=== PATIENT | male | born 1965 | race Caucasian/White ===

== ENCOUNTER 2025-04-02 12:42 | Inpatient (IN) ==
[2025-04-02 13:52] LABS: Hematocrit (blood only) 44.6 % (42.0-52.0); Hemoglobin 14.4 g/dl (14.0-18.0); Immature Granulocytes # (auto) 0.12 K/uL (0.01-0.20); Immature Granulocytes % (auto) 0.7 %; Mean Corpuscular Hemoglobin 28.7 pg (25.0-34.0); Mean Corpuscular Volume 89.0 fL (80.0-100.0); Platelet Count 275 K/uL (130-400); RDW Standard Deviation 50.0 fL (36.4-46.3); Red Blood Count 5.01 M/uL (4.70-6.10); White Blood Count 17.75 K/ul (4.8-10.8)
[2025-04-02 14:14] LABS: Alanine Aminotransferase 100.0 U/L (7-52); Albumin Globulin Ratio 0.9 (0.9-2); Alkaline Phosphatase 64.0 U/L (34-104); Anion Gap 13.0 (3-11); Bilirubin,Total 1.7 mg/dl (0.2-1.0); Blood Urea Nitrogen 44.0 mg/dl (6-23); Calcium 9.2 mg/dl (8.6-10.3); Carbon Dioxide 20.0 mmol/L (21-32); Chloride 103.0 mmol/L (98-107); Creatinine Clr Calc Pharmacy 39.6 ml/min; Globulin 3.7 gm/dl (2.5-4.0); Glucose 183.0 mg/dl (70-99(Fasting)); Magnesium 2.2 mg/dl (1.7-2.4); Potassium 4.2 mmol/L (3.5-5.1); Sodium 136.0 mmol/L (136-145); Total Protein 7.2 gm/dl (6.0-8.3)
[2025-04-02] MEDS: FUROSEMIDE 40 MG/4 ML VIAL IV ONE (14:17)
[2025-04-02] MEDS: METOPROLOL TARTRATE 1 MG/ML VIAL IV STA (14:17)
[2025-04-02] MEDS: NITROGLYCERIN 2% OINTMENT 30GM TUBE EXT STA (14:19)
--- NOTE | 2025-04-02 14:20 | XRay Report ---
SINGLE VIEW CHEST CLINICAL HISTORY: Dysrhythmia FINDINGS: 2 AP, portable, upright chest radiographs are obtained. No prior studies are available for comparison at the time of dictation. The heart is enlarged and noting atherosclerotic calcification o f the thoracic aorta. There is mild pulmonary vascular congestion. There is bibasilar consolidation. Small pleural effusions are suspected. No pneumothorax is seen. The skeletal structures are osteopeni c. The bony thorax is grossly intact. IMPRESSION: 1. Cardiomegaly with mild pulmonary vascular congestion. 2. There is bibasilar airspace consolidation. This is somewhat nodular in configuration on the right. Correlate clinically for evidence of pneumonia/aspiration pneumonitis. Radiographic follow-up to res olution is recommended. If clinical findings are not compatible with pneumonia then a chest CT scan s hould be obtained to further evaluate the right lower lung. 3. Small pleural effusions are suspected ACT 112: Negative or not required by law. Electronically signed by: Jermain Mcallister M.D. 04/02/2025 2:18 PM
[2025-04-02 14:22] LABS: INR 1.4 (0.9-1.1); Partial Thromboplastin Time 23 Seconds (21-31); Prothrombin Time 14.6 Seconds (9.0-12.0)
[2025-04-02 14:27] LABS: Thyroid Stimulating Hormone 3.352 uIu/ml (0.300-4.500)
--- NOTE | 2025-04-02 15:32 | History & Physical Report ---
Date of Service April 02, 2025 Assessment & Plan (1) CHF exacerbation: Plan: Patient is a 59 year old M with a past medical history of chronic systolic heart failure, diabetes type II, hypertension, CKD stage III, hyperlipidemia, obesity, ulcerative colitis presenting with shortness of breath, edema, cough. Symptoms began about a week ago with nonproductive cough and lower leg edema, progressed to shortness of breath about 3 days ago with exertion. Patient relocated from [place] about 6 months ago and was taking all his medications until about 30 days ago when he had no refills remaining. Since then he's been trying to establish insurance and outpatient providers. Reportedly, he was diagnosed with heart failure about 15 months ago when hospitalized in [place] with similar presentation. He experienced weight gain, swelling to the legs and shortness of breath at that time, then lost ~50 pounds following diuretics while inpatient. Previous medications included metoprolol, bumetanide, eplerenone, atorvastatin, ACEi and aspirin. #Acute on chronic CHF exacerbation * Admit to Telemetry for further management and additional work-up * Nonadherence to meds with acute exacerbation of CHF->BNP 1581 * Elevated Trop 155, then 162; NO Chest pain. Will trend Q6H x 3 * Chest Xray showing cardiomegaly with mild pulmonary vascular congestion; bibasilar airspace consolidation with nodular configuration to R lung and possible small pleural effusions-> will obtain CT Chest for r/o pericardial effusion * Hypertensive, tachypneic, tachycardiac in ED-> Lasix, Metoprolol, Nitro given in ED * Holding home diuretics; Lasix 60 mg BID dosing ordered to start tomorrow morning * Will resume home dose metoprolol, statin, aspirin * Cardiology consult for further recs and diuretic management * Transthoracic Echo ordered #Suspected CAP * +cough, nonproductive, short of breath, stable O2 sats at 93% RA * Elevated WBC 17.7K with mildly elevated Procal 0.52 and Lactate 3.1-> Blood cultures pending; Rocephin and Doxy given in ED for suspected CAP * Will continue with Rocephin and Doxy while inpatient * Repeat lactate pending #Cellulitis * BLE edema with well-defined erythematic borders to shins, + ulcers with active drainage--> wound culture pending * MRSA swab pending * No home anticoagulation; Venous Doppler for r/o DVT showed occlusive thrombus within the popliteal veins bilaterally--> Heparin drip initiated * Empiric Ceftriaxone and Doxy coverage; await wound cx results #Hypertension #CKD Stage III * BP initially elevated 156/100; received metoprolol in ED and home metoprolol 25 mg resumed; BP now 108/92 * Creatinine 2.8, BUN 44 * Hold home ACEi * Hold nephro toxic agents if possible; Trend renal functioning with AM labs #Transaminitis * Elevated LFTs-> Bili 1.7, AST 110, ALT 100; suspect hepatic congestion * No abdominal symptoms * Obtain Liver Ultrasound for r/o alternative etiology * Trend with AM labs #Hyperlipidemia * Atorvastatin on high dose at home- resumed * will check Lipids with AM labs #Diabetes Type II, non-insulin dependent * A1C 6.8% * Hold home metformin and Jardiance * SSI while inpatient; Goal BSG 110-140, adjust as needed * Diabetic teaching at discharge needed DVT Ppx: Heparin Code status: Full PCP: No PCP Dispo: Admit to Tele for further management; Discharge planning- CM to establish PCP and Cardiology follow-up at d/c Patient seen in collaboration with Dr. Mix. Please see addendum.I spent a total of 75 minutes coordinating, documenting and providing care for this patient excluding time spent in the performance of separately billed services or time spent by another provider/QHP. (2) Cellulitis: (3) Hypertension: (4) CKD (chronic kidney disease), stage III: (5) Transaminitis: (6) Hyperlipidemia: (7) Diabetes mellitus, type II: History of Present Illness Primary Care Provider: NO PCP Patient is a 59 year old M with a past medical history of chronic systolic heart failure, diabetes type II, hypertension, CKD stage III, hyperlipidemia, obesity, ulcerative colitis presenting with shortness of breath, edema, cough. Symptoms began about a week ago with nonproductive cough and lower leg edema, progressed to shortness of breath about 3 days ago with exertion. Patient relocated from [place] about 6 months ago and was taking all his medications until about 30 days ago when he had no refills remaining. Since then he's been trying to establish insurance and outpatient providers. Reportedly, he was diagnosed w ith heart failure about 15 months ago when hospitalized in [place] with similar presentation. He experienced weight gain, swelling to the legs and shortness of breath at that time, then lost ~50 pounds following diuretics while inpatient. Previous medications included metoprolol, bumetanide, eplerenone, atorvastatin, ACEi and aspirin. Denies fever, chills, weight loss, weakness, headache, cognitive changes, vision/hearing changes, chest pain, difficulty breathing, urinary concerns, N/V/D, joint swelling/pain, ambulation difficulty,lesions, bleeding, bruising. In the emergency department, patient was hypertensive to 150's/100's with evidence of fluid overload. BNP elevated 1581. Trop 155 and increased to 162 on repeat. Initially tachypneic, tachycardic and short of breath. Lasix, Metoprolol, Nitro were given. Patient responded well to this regimen and respiratory rate slowed to the 20's and heart rate trended down to the 90's following. No hypoxia noted. Chest Xray showed cardiomegaly with mild pulmonary vascular congestion; bibasilar airspace consolidation with nodular configuration to right lung, and suspected small pleural effusions. Chest CT wo contrast ordered for r/o pericardial effusion. Results pending. EKG was initially questionable for Afib, repeat EKG then showed NSR with vent rate 97 bpm, QTc 492. Doppler BLE was obtained for BLE edema with suspected cellulitis. No anticoagulation at home. Doppler showing occlusive thrombus within the popliteal veins bilaterally. Heparin drip initiated. Also found to have an elevated WBC 17.7K with a mildly elevated Procal 0.52, and Lactate 3.1. Blood cultures collected. No evidence of sepsis. Rocephin and Doxy were given. MRSA swab collected. History obtained primarily from the patient and via medical records that he bro ught from PCP from [place]. Home Medications Medication Instructions Recorded Confirmed Type aspirin 81 mg tablet 81 mg PO DAILY 04/02/25 04/02/25 History atorvastatin 80 mg tablet 80 mg PO HS 04/02/25 04/02/25 History bumetanide 0.5 mg tablet 0.5 mg PO DAILY 04/02/25 04/02/25 History empagliflozin 10 mg tablet 10 mg PO DAILY 04/02/25 04/02/25 History (Jardiance) eplerenone 50 mg tablet 50 mg PO DAILY 04/02/25 04/02/25 History magnesium oxide 400 mg (241.3 mg 400 mg PO DAILY 04/02/25 04/02/25 History magnesium) tablet metformin 500 mg tablet 500 mg PO DAILY 04/02/25 04/02/25 History metoprolol succinate 25 mg 25 mg PO DAILY 04/02/25 04/02/25 History tablet,extended release 24 hr ramipril 5 mg tablet 5 mg PO DAILY 04/02/25 04/02/25 History Past Med/Surg History Problem List (Updated 04/02/25 @ 18:13 by Lionel Wong MD) Pneumonia (Acute) Transaminitis (Acute) CKD (chronic kidney disease), stage III (Acute) Hyperlipidemia Diabetes mellitus, type II Hypertension (Acute) Cellulitis (Acute) CHF exacerbation (Acute) Medical History Systolic CHF Ulcerative colitis Obesity Social History Smoking Status: Never smoker Second Hand Exposure: No; Do You Dip or Chew Tobacco: No; Hx Alcohol Use: Yes Alcohol type: beer Hx Substance Use: No Preferred Language: [employer] Teacher Required: Yes Beliefs That Will Affect Care: None Current Living Situation: Alone Feels Safe at Home: Yes Safety Concerns: Feels Safe At This Time Assistive Devices: None and Glasses Review of Systems Review of Systems: All systems reviewed & are unremarkable except as noted in HPI & below Physical Exam Physical Exam: VITALS: Reviewed. WEIGHT/BMI reviewed. GEN: Obese, well-developed, NAD. PSYCH: Good Judgment. AOx3. Normal memory, mood, and affect. HEENT -Head: NC/AT; -Eyes: PERRL, EOMI. No discharge or redn ess; -Ears: External ears are normal. -Nose: Normal nares. -Mouth and throat: Dry mucous membranes. Normal gums, mucosa, palate,. Good dentition. NECK: Supple, with no masses. CV: RRR, no m/r/g. Pitting edema BLE, Good perfusion. LUNGS: Mildly diminished to bases, CTAB, no w/r/c. ABD: Soft, NT/ND, NBS, no masses or organomegaly. : N/A SKIN: Warm, well perfused. Open, draining ulcers to B/L shins, +erythema, + swelling, no pressure injury to B/L heels MSK: No deformities, Normal gait. EXT: No clubbing, cyanosis, or edema. NEURO: Ambulating with no limitations. Normal muscle strength and tone. No focal deficits. Results & Data Results & Data Vital Signs (Past 12 Hours) Vital Signs Temp Pulse Pulse Resp BP BP Pulse Ox 04/02/25 15:14 101 H 25 H 151/105 H 96 04/02/25 14:17 115 H 172/135 H 04/02/25 13:43 117 H 04/02/25 13:39 115 H 18 172/135 H 92 04/02/25 13:38 04/02/25 13:20 04/02/25 12:50 36.6 C 123 H 17 177/103 H 93 O2 Del Method 04/02/25 15:14 Room Air 04/02/25 14:17 04/02/25 13:43 04/02/25 13:39 Room Air 04/02/25 13:38 Room Air 04/02/25 13:20 Room Air 04/02/25 12:50 Room Air Laboratory Results Short CBC 04/02/25 Range/Units 13:20 WBC 17.75 H (4.8-10.8) K/ul Hgb 14.4 (14.0-18.0) g/dl Hct 44.6 (42.0-52.0) % Plt Count 275 (130-400) K/uL BMP 04/02/25 13:20 Sodium 136 Potassium 4.2 Chloride 103 Carbon Dioxide 20 L BUN 44 H Creatinine 2.80 H Glucose 183 H Calcium 9.2 Liver Function 04/02/25 Range/Units 13:20 Total Bilirubin 1.7 H (0.2-1.0) mg/dl AST 110 H (13-39) U/L ALT 100 H (7-52) U/L Alkaline Phosphatase 64 (34-104) U/L Albumin 3.5 (3.4-5.0) gm/dl Diagnostic Findings Chest X-Ray 04/02/25 13:34 SINGLE VIEW CHEST CLINICAL HISTORY: Dysrhythmia FINDINGS: 2 AP, portable, upright chest radiographs are obtained. No prior studies are available for comparison at the time of dictation. The heart is enlarged and noting atherosclerotic calcification of the thoracic aorta. There is mild pulmonary vascular congestion. There is bibasilar consolidation. Small pleural effusions are suspected. No pneumothorax is seen. The skeletal structures are osteopenic. The bony thorax is grossly intact. IMPRESSION: 1. Cardiomegaly with mild pulmonary vascular congestion. 2. There is bibasilar airspace consolidation. This is somewhat nodular in configuration on the right. Correlate clinically for evidence of pneumonia/a spiration pneumonitis. Radiographic follow-up to resolution is recommended. If clinical findings are not compatible with pneumonia then a chest CT scan should be obtained to further evaluate the right lower lung. 3. Small pleural effusions are suspected ACT 112: Negative or not required by law. Electronically signed by: Jermain Mcallister M.D. 04/02/2025 2:18 PM Supervising Physician Co-Signing Physician Notes Patient seen and examined independently. Discussed with above provider. Patient presented to the hospital with shortness of breath for 2 days. Patient stopped using his medications after he moved since last 2 months. He reports progressive bilateral lower extremity swelling. He has exertional dyspnea. Leukocytosis present on admission. MELISSA, elevated lactic acid, elevated high sensitive troponin and BNP. Chest x-ray showed mild pulmonary vascular congestion with bibasilar opacities. Chest CT showed mildly enlarged heart with small pericardial effusion and bibasilar patchy pneumonia. Venous Doppler showed DVT in popliteal vein bilaterally. Sepsis POA Right leg cellulitis Bilateral pneumonia Continue on antibiotics; will provide additional fluid; trend lactate. Acute popliteal vein DVTstarted on heparin drip. Cannot undergo CTA to rule out PE. PE is certainly a possibility; continue on heparin drip. Will obtain echocardiogram to see right heart strain. Acute on chronic heart failurestarted on Lasix 60 twice daily. Home Lipitor, metoprolol and aspirin resumed. Cardiology consulted AKIbaseline creatinine unknown. Given IV fluids. Nephrology consulted Full code DVT prophylaxis heparin drip I have reviewed the advanced practitioner's documentation, and I agree with, and take responsibility for the plan of care I spent a total of 40 minutes coordinating, documenting, and providing care for this patient excluding time spent in the performance of separately billed services. All of the aforementioned completed while collaborating with the assigned advanced practitioner for a full treatment plan
[2025-04-02] MEDS: cefTRIAXone SODIUM 2,000 MG/50 ML BAG IV STA (15:33)
[2025-04-02] MEDS: SODIUM CHLORIDE 0.9% 500 ML IV ONE (15:34)
[2025-04-02 16:39] LABS: Hemoglobin A1C 6.8 % (4.5-5.6)
--- NOTE | 2025-04-02 17:14 | Ultrasound Report ---
Clinical History: Swelling Technique: Venous ultrasound evaluation was performed utilizing grayscale, color Doppler and wave form evaluation. Images were also obtained with and without compression Findings: There is apparent occlusive thrombus within the popliteal veins bilaterally The bilateral common femoral, superficial femoral and visualized calf veins demonstrate normal anechoic lumens with full compressibility. Impression: DVT in the popliteal veins bilaterally Electronically signed by Nitin Holguin 04-02-2025 5:13 PM
--- NOTE | 2025-04-02 17:34 | Ultrasound Report ---
Clinical history: Transaminitis Technique: Sonography was performed of the right upper quadrant of the abdomen Findings: This examination was limited by the patient's body habitus The liver is enlarged measuring 20.8 cm. There is no sign of cirrhosis or significant fatty infiltration. No definite liver mass is seen There is no definite evidence of cholelithiasis or cholecystitis. The gallbladder wall is mildly thickened at 5 mm. No definite sonographic Wolff sign was detected. There is no definite intrahepatic bile duct dilatation. The common bile duct is slightly dilated at 7 mm but is not optimally seen The right kidney measures 15.3 cm in length. There is no hydronephrosis. There are apparent right renal calculi, measuring up to 5 mm. There are multiple right renal cysts, measuring up to 3.5 cm The visualized pancreas, aorta, and IVC appear unremarkable. No ascites is seen Impression: 1. Mild gallbladder wall thickening without definite cholelithiasis. The wall thickening could be due to hepatitis or hypoalbuminemia 2. Hepatomegaly 3. Right renal calculi and right renal cysts Electronically signed by Nitin Holguin 04-02-2025 5:34 PM
[2025-04-02] MEDS: DOXYCYCLINE HYCLATE 100 MG in DEXTROSE 5% MINI-B 100 ML IV STA (17:36)
[2025-04-02] MEDS ORDERED: HEPARIN SOD (PORCINE) 1000 UNIT/ML IV ONE (17:38)
[2025-04-02] MEDS: SODIUM CHLORIDE 0.9% 1,000 ML IV SCH (17:38)
[2025-04-02] MEDS: METOPROLOL SUCC 25MG EXT REL TAB PO SCH (17:47)
[2025-04-02] MEDS: ATORVASTATIN 40 MG TAB PO SCH (17:47)
--- NOTE | 2025-04-02 18:03 | CT Scan Report ---
CT CHEST WITHOUT CONTRAST: HISTORY: TECHNIQUE: CT of the chest was obtained without intravenous contrast. Coronal and sagittal reformats were created. COMPARISON: FINDINGS: LOWER NECK: Normal thyroid. LYMPH NODES: Mildly enlarged mediastinal and hilar lymph nodes CARDIOVASCULAR: Cardiac size is markedly enlarged. Coronary artery and valvula calcifications are noted. No aortic aneurysm. There is a small pericardial fluid. LUNGS: The trachea and central bronchi are widely patent. No focal confluent infiltrates are seen. There are no pulmonary nodules. PLEURA: There are no pleural effusions. There is no pneumothorax. UPPER ABDOMEN: Hepatic steatosis and hepatomegaly. Renal cysts OSSEOUS STRUCTURES: No acute findings IMPRESSION: Mildly enlarged heart with small pericardial fluid. Small left greater than right pleural fluids. Bibasilar atelectasis and patchy pneumonia Electronically signed by Brooks Zuniga 04-02-2025 6:03 PM
--- NOTE | 2025-04-02 18:13 | Emergency Department Note ---
Impression & Plan CHF exacerbation, Cellulitis, Hypertension, CKD (chronic kidney disease), stage III, Pneumonia, Transaminitis ED Provider Note NAME: NAHID JOYA AGE: 59 SEX: Male INFORMANT: Patient ED PROVIDER(S): Lionel Wong MD CHIEF COMPLAINT: Shortness of breath PLAN: Disposition: Admitted Outpatient prescription management: none Referral: None MEDICAL DECISION MAKING: Patient presented because of shortness of breath. He was markedly hypertensive and was tachycardic. Initial ECG appeared to be atrial fibrillation but possibly sinus rhythm with frequent PACs at a rate of 116 bpm. Patient had a chest x-ray performed. He was tachypneic but maintaining his O2 saturations. Chest x-ray was concerning for pneumonia. Blood work did reveal findings concerning for leukocytosis on CBC. Patient had mild elevation of LFTs but no right upper quadrant tenderness. Chemistry panel shows some mild hyperglycemia. Patient was also exhibiting signs of renal insufficiency. No prior for comparison. Patient was treated with IV Lasix, IV metoprolol and Nitropaste. Blood pressure and heart rate did improve. Patient was feeling his breathing was easier. Still maintaining O2 saturations with decreased work of breathing. No indication for BiPAP at this time. Patient had cultures obtained and was treated empirically with IV Rocephin and doxycycline. Vancomycin was considered but initially held due to the patient's poor renal status. Patient was gently hydrated due to his abnormal labs but because of his elevated troponin and BNP fluid management was done carefully without indiscriminate 30 mL/kg sepsis bolus. Repeat ECG revealed a normal sinus rhythm without ST elevation. Further evaluation and management will be necessary in the hospital. Consultation was made with the [facility] hospitalist service. Patient was evaluated in the ER and admitted for further management. Care/management discussed with: manager quality systems, hospitalist Level of care consideration(s): After review of the information above and other included data, I feel the patient requires escalation of care to admission Triage Nursing notes: reviewed and agree them. Vital Signs: reviewed and remarkable for tachycardia and severe hypertension Additional History obtained from: none Chronic Medical/Social Conditions affecting care: Diabetes, hypertension Prior/ Outside/ External records reviewed: none Differential Diagnosis: Reactive airway disease, pneumonia, pneumothorax, COPD, CHF, infections, cardiac ischemia, pulmonary embolism, musculoskeletal, gastrointestinal, as well as other pathologies. Diagnostics, independently interpreted by me: ECG: Twelve-lead ECG #1 reveals atrial fibrillation versus sinus tachycardia with PACs at 116 bpm. Inferior Q waves. No ST elevation present.No prior for comparison. Repeat ECG #2 reveals a normal sinus rhythm at 97 bpm. Inferior Q waves without ST elevation or depression. Cardiac Monitoring: Cardiac monitoring ordered by me: The patient was placed on continuous cardiac monitoring and observed. It revealed a normal sinus rhythm at 95 beats per minute without ectopy or evidence of dysrhythmia. Medical decision rules: none Imaging studies: Chest x-ray is concerning for right lower lobe infiltrate as well as CHF. HPI: 59 year old Male arrives for evaluation of shortness of breath. This started over the last week and is worsening. The patient also notes the following associated symptoms, leg swelling with ulcerations, mild cough, fatigue. Patient states that he recently moved from the [facility] to here. He has not reestablished care. He also notes he is prescription coverage has lapsed and he was out of his medications for several weeks. The patient has found no relieving factors. Current pain is rated as 0/10. Patient does have a history of CHF as well as diabetes. Pt denies LOC, headache, fevers, chills, diaphoresis, visual changes, neck pain, chest pain, nausea, vomiting, abdominal pain, back pain, melena, hematochezia, urinary symptoms, numbness, focal weakness, lymphadenopathy, or other complaints. PAST MEDICAL HISTORY: See Below, CHF, diabetes PAST SURGICAL HISTORY: See Below, SOCIAL HISTORY: See Below, non-smoker HOME MEDICATIONS: See Below ALLERGIES: See Below VITALS: See Below PHYSICAL EXAMINATION: GENERAL: Awake, alert, dyspneic-appearing, in no distress HENT: Normocephalic, atraumatic. Oropharynx unremarkable. EYES: Normal conjunctiva. Sclera non-icteric. NECK: Inspection normal. Non-tender. Supple. No nuchal rigidity. FROM. No masses. RESPIRATORY: Few scattered crackles and some rhonchi in the right base rales. Mildly increased respiratory effort. CARDIAC: Normal rate. Normal rhythm. No murmurs. No rubs. Extremities warm and well perfused. Pulses equal. No JVD. GI: Soft, non-distended. No tenderness to palpation. No rebound or guarding. No masses. RECTAL: Deferred. MUSCULOSKELETAL: Atraumatic. Chest examination reveals no tenderness. The back is symmetrical on inspection without obvious abnormality. There is no CVA tenderness to palpation. No joint edema. LOWER EXTREMITIES: Calves are equal size bilaterally and non-tender. 3+ edema. Bilateral erythematous discoloration. Bilateral skin ulcerations present. Clear fluid discharge. NEURO: Normal sensorium. Generally weak but no focal sensory or motor deficits noted. SKIN: Ulcerations on the lower extremities as above. Mild surrounding cellulitis. No petechia, purpura, or jaundice noted. PROCEDURES: none CRITICAL CARE: I have personally spent 40 minutes of critical care time in the direct management of this patient. This includes bedside care, interpretation of diagnostic studies, and testing, discussion with consultants, patient, and family members, and other required patient management activities. These minutes are in excess of all separately billable procedures. OBSERVATION NOTE: none Past Med/Surg History Problem List (Updated 04/02/25 @ 18:13 by Lionel Wong MD) Pneumonia (Acute) Transaminitis (Acute) CKD (chronic kidney disease), stage III (Acute) Hyperlipidemia Diabetes mellitus, type II Hypertension (Acute) Cellulitis (Acute) CHF exacerbation (Acute) Medical History Systolic CHF Ulcerative colitis Obesity Social History Smoking Status: Never smoker Preferred Language: Kazakh Feels Safe at Home: Yes Home Meds Home Medications Medication Instructions Recorded Confirmed aspirin 81 mg tablet 81 mg PO DAILY 04/02/25 04/02/25 atorvastatin 80 mg tablet 80 mg PO HS 04/02/25 04/02/25 bumetanide 0.5 mg tablet 0.5 mg PO DAILY 04/02/25 04/02/25 empagliflozin 10 mg tablet 10 mg PO DAILY 04/02/25 04/02/25 (Jardiance) eplerenone 50 mg tablet 50 mg PO DAILY 04/02/25 04/02/25 magnesium oxide 400 mg (241.3 mg 400 mg PO DAILY 04/02/25 04/02/25 magnesium) tablet metformin 500 mg tablet 500 mg PO DAILY 04/02/25 04/02/25 metoprolol succinate 25 mg 25 mg PO DAILY 04/02/25 04/02/25 tablet,extended release 24 hr ramipril 5 mg tablet 5 mg PO DAILY 04/02/25 04/02/25 Results & Data (ED) Vital Signs Vital Signs - 24 hr 04/02/25 12:50 04/02/25 13:20 04/02/25 13:38 Temperature 36.6 C Temperature Source Temporal Artery Scan Pulse Rate 123 H Pulse Rate [Apical] Pulse Rate from SpO2 Sensor Pulse Strength [Apical] Respiratory Rate 17 Respiratory Effort / Characteristics Respiratory Depth Shallow Respiratory Pattern Rapid/Deep Blood Pressure 177/103 H Blood Pressure [Left Arm] Blood Pressure Mean 127 Blood Pressure Mean [Left Arm] Blood Pressure Position [Left Arm] Pulse Oximetry 93 Oxygen Delivery Method Room Air Room Air Room Air Sepsis Recent Fever Within 48 Hours No Sepsis New/Unexplained Change in Mental Status N/A Sepsis Action Taken by Nursing No Action Required 04/02/25 13:39 04/02/25 13:43 04/02/25 14:17 Temperature Temperature Source Pulse Rate 117 H 115 H Pulse Rate [Apical] 115 H Pulse Rate from SpO2 Sensor Pulse Strength [Apical] Respiratory Rate 18 Respiratory Effort / Characteristics Non-Labored Spontaneous Respiratory Depth Normal Respiratory Pattern Regular Blood Pressure 172/135 H Blood Pressure [Left Arm] 172/135 H Blood Pressure Mean Blood Pressure Mean [Left Arm] 147 Blood Pressure Position [Left Arm] Pulse Oximetry 92 Oxygen Delivery Method Room Air Sepsis Recent Fever Within 48 Hours Sepsis New/Unexplained Change in Mental Status Sepsis Action Taken by Nursing 04/02/25 15:00 04/02/25 15:14 04/02/25 15:16 Temperature Temperature Source Pulse Rate Pulse Rate [Apical] 101 H Pulse Rate from SpO2 Sensor Pulse Strength [Apical] Normal Respiratory Rate 25 H Respiratory Effort / Characteristics Non-Labored Spontaneous Respiratory Depth Normal Respiratory Pattern Blood Pressure 151/105 H 156/119 H Blood Pressure [Left Arm] 151/105 H Blood Pressure Mean 115 137 Blood Pressure Mean [Left Arm] 120 Blood Pressure Position [Left Arm] Pulse Oximetry 96 Oxygen Delivery Method Room Air Sepsis Recent Fever Within 48 Hours Sepsis New/Unexplained Change in Mental Status Sepsis Action Taken by Nursing 04/02/25 15:16 04/02/25 15:16 04/02/25 15:18 Temperature Temperature Source Pulse Rate 101 H Pulse Rate [Apical] Pulse Rate from SpO2 Sensor 97 H Pulse Strength [Apical] Respiratory Rate 26 H Respiratory Effort / Characteristics Respiratory Depth Respiratory Pattern Blood Pressure 156/119 H 156/119 H Blood Pressure [Left Arm] Blood Pressure Mean 137 137 Blood Pressure Mean [Left Arm] Blood Pressure Position [Left Arm] Pulse Oximetry 95 Oxygen Delivery Method Sepsis Recent Fever Within 48 Hours Sepsis New/Unexplained Change in Mental Status Sepsis Action Taken by Nursing 04/02/25 15:30 04/02/25 15:33 04/02/25 15:33 Temperature Temperature Source Pulse Rate 101 H 101 H Pulse Rate [Apical] Pulse Rate from SpO2 Sensor 102 H Pulse Strength [Apical] Respiratory Rate 30 H Respiratory Effort / Characteristics Respiratory Depth Respiratory Pattern Blood Pressure 156/103 H 156/103 H Blood Pressure [Left Arm] Blood Pressure Mean 120 Blood Pressure Mean [Left Arm] Blood Pressure Position [Left Arm] Pulse Oximetry 94 Oxygen Delivery Method Sepsis Recent Fever Within 48 Hours Sepsis New/Unexplained Change in Mental Status Sepsis Action Taken by Nursing 04/02/25 15:42 04/02/25 15:46 04/02/25 15:46 Temperature Temperature Source Pulse Rate 100 H Pulse Rate [Apical] Pulse Rate from SpO2 Sensor 100 H Pulse Strength [Apical] Respiratory Rate 30 H Respiratory Effort / Characteristics Respiratory Depth Respiratory Pattern Blood Pressure 130/109 H 130/109 H Blood Pressure [Left Arm] Blood Pressure Mean 124 124 Blood Pressure Mean [Left Arm] Blood Pressure Position [Left Arm] Pulse Oximetry 94 Oxygen Delivery Method Sepsis Recent Fever Within 48 Hours Sepsis New/Unexplained Change in Mental Status Sepsis Action Taken by Nursing 04/02/25 15:48 04/02/25 15:51 04/02/25 16:01 Temperature Temperature Source Pulse Rate 101 H 100 H Pulse Rate [Apical] Pulse Rate from SpO2 Sensor 101 H 104 H Pulse Strength [Apical] Respiratory Rate 33 H 31 H Respiratory Effort / Characteristics Respiratory Depth Respiratory Pattern Blood Pressure 108/92 Blood Pressure [Left Arm] Blood Pressure Mean 102 Blood Pressure Mean [Left Arm] Blood Pressure Position [Left Arm] Pulse Oximetry 91 93 Oxygen Delivery Method Sepsis Recent Fever Within 48 Hours Sepsis New/Unexplained Change in Mental Status Sepsis Action Taken by Nursing 04/02/25 17:43 04/02/25 17:48 04/02/25 17:59 Temperature 37.2 C Temperature Source Oral Pulse Rate 112 H Pulse Rate [Apical] 109 H Pulse Rate from SpO2 Sensor Pulse Strength [Apical] Respiratory Rate 25 H Respiratory Effort / Characteristics Spontaneous Short of Breath Respiratory Depth Normal Respiratory Pattern Tachypnea Blood Pressure Blood Pressure [Left Arm] 147/111 H Blood Pressure Mean Blood Pressure Mean [Left Arm] 123 Blood Pressure Position [Left Arm] Semi-fowlers Pulse Oximetry 92 Oxygen Delivery Method Room Air Sepsis Recent Fever Within 48 Hours Sepsis New/Unexplained Change in Mental Status Sepsis Action Taken by Nursing Laboratory Data 04/02/25 13:20 04/02/25 13:20 Lab Results 04/02/25 04/02/25 04/02/25 Range/Units 13:20 14:30 15:35 WBC 17.75 H (4.8-10.8) K/ul RBC 5.01 (4.70-6.10) M/uL Hgb 14.4 (14.0-18.0) g/dl Hct 44.6 (42.0-52.0) % MCV 89.0 (80.0-100.0) fL MCH 28.7 (25.0-34.0) pg MCHC 32.3 (32.0-36.0) g/dL RDW Std Deviation 50.0 H (36.4-46.3) fL RDW Coeff of Shasha 15.4 H (11.5-14.5) % Plt Count 275 (130-400) K/uL MPV 10.4 (9.4-12.4) fL Immature Gran % (Auto) 0.7 % Neut % (Auto) 86.4 % Lymph % (Auto) 4.6 % [place] % (Auto) 8.1 % Eos % (Auto) 0.0 % Baso % (Auto) 0.2 % Neut # (Auto) 15.35 H (1.40-6.50) K/uL Lymph # (Auto) 0.81 L (1.20-3.40) K/uL [place] # (Auto) 1.44 H (0.11-0.59) K/uL Eos # (Auto) 0.00 (0.00-0.50) K/uL Baso # (Auto) 0.03 (0.00-0.20) K/uL Immature Gran # (Auto) 0.12 (0.01-0.20) K/uL Absolute Nucleated RBC 0.10 (0.00-0.12) K/uL Nucleated RBC % (auto) 0.6 % PT 14.6 H (9.0-12.0) Seconds INR 1.4 H (0.9-1.1) APTT 23 (21-31) Seconds PTT Ratio 0.9 Sodium 136 (136-145) mmol/L Potassium 4.2 (3.5-5.1) mmol/L Chloride 103 (98-107) mmol/L Carbon Dioxide 20 L (21-32) mmol/L Anion Gap 13 H (3-11) BUN 44 H (6-23) mg/dl Creatinine 2.80 H (0.6-1.4) mg/dl Est Cr Clr Drug Dosing 39.6 ml/min eGFR 25.36 BUN/Creatinine Ratio 15.7 (10-20) Glucose 183 H (70-99(Fasting)) mg/dl Estimat Average Glucose 148 mg/dl Hemoglobin A1c 6.8 H (4.5-5.6) % Lactate 3.1 H* (0.4-2.0) mmol/L Calcium 9.2 (8.6-10.3) mg/dl Magnesium 2.2 (1.7-2.4) mg/dl Total Bilirubin 1.7 H (0.2-1.0) mg/dl AST 110 H (13-39) U/L ALT 100 H (7-52) U/L Alkaline Phosphatase 64 (34-104) U/L Troponin I High Sens 155.3 H* 162.8 H* (0-20) pg/ml B-Natriuretic Peptide 1581 H (0-100) pg/ml Total Protein 7.2 (6.0-8.3) gm/dl Albumin 3.5 (3.4-5.0) gm/dl Globulin 3.7 (2.5-4.0) gm/dl Albumin/Globulin Ratio 0.9 (0.9-2) Procalcitonin 0.52 H (0-0.5) ng/ml TSH 3.352 (0.300-4.500) uIu/ml Urine Comment Nasal Screen MRSA (PCR) Negative (Negative) 04/02/25 Range/Units 17:43 WBC (4.8-10.8) K/ul RBC (4.70-6.10) M/uL Hgb (14.0-18.0) g/dl Hct (42.0-52.0) % MCV (80.0-100.0) fL MCH (25.0-34.0) pg MCHC (32.0-36.0) g/dL RDW Std Deviation (36.4-46.3) fL RDW Coeff of Shasha (11.5-14.5) % Plt Count (130-400) K/uL MPV (9.4-12.4) fL Immature Gran % (Auto) % Neut % (Auto) % Lymph % (Auto) % [place] % (Auto) % Eos % (Auto) % Baso % (Auto) % Neut # (Auto) (1.40-6.50) K/uL Lymph # (Auto) (1.20-3.40) K/uL [place] # (Auto) (0.11-0.59) K/uL Eos # (Auto) (0.00-0.50) K/uL Baso # (Auto) (0.00-0.20) K/uL Immature Gran # (Auto) (0.01-0.20) K/uL Absolute Nucleated RBC (0.00-0.12) K/uL Nucleated RBC % (auto) % PT (9.0-12.0) Seconds INR (0.9-1.1) APTT (21-31) Seconds PTT Ratio Sodium (136-145) mmol/L Potassium (3.5-5.1) mmol/L Chloride (98-107) mmol/L Carbon Dioxide (21-32) mmol/L Anion Gap (3-11) BUN (6-23) mg/dl Creatinine (0.6-1.4) mg/dl Est Cr Clr Drug Dosing ml/min eGFR BUN/Creatinine Ratio (10-20) Glucose (70-99(Fasting)) mg/dl Estimat Average Glucose mg/dl Hemoglobin A1c (4.5-5.6) % Lactate (0.4-2.0) mmol/L Calcium (8.6-10.3) mg/dl Magnesium (1.7-2.4) mg/dl Total Bilirubin (0.2-1.0) mg/dl AST (13-39) U/L ALT (7-52) U/L Alkaline Phosphatase (34-104) U/L Troponin I High Sens (0-20) pg/ml B-Natriuretic Peptide (0-100) pg/ml Total Protein (6.0-8.3) gm/dl Albumin (3.4-5.0) gm/dl Globulin (2.5-4.0) gm/dl Albumin/Globulin Ratio (0.9-2) Procalcitonin (0-0.5) ng/ml TSH (0.300-4.500) uIu/ml Urine Comment Nasal Screen MRSA (PCR) (Negative) Administered Medications Atorvastatin Calcium (Atorvastatin 40 Mg Tab) 80 mg PO [facility] Stop: 05/02/25 15:59 Last Admin: 04/02/25 17:47 Dose: 80 mg Documented By: RODOLFO Sodium Chloride (Nss) 1,000 mls @ 125 mls/hr IV .Q8H [facility] Stop: 04/05/25 15:14 Last Admin: 04/02/25 17:38 Dose: Not Given Documented By: RODOLFO Metoprolol Succinate (Metoprolol Succ 25mg Ext Rel Tab) 25 mg PO [facility] Stop: 05/02/25 15:59 Last Admin: 04/02/25 17:47 Dose: 25 mg Documented By: RODOLFO Discontinued Medications Furosemide (Furosemide 40 Mg/4 Ml Vial) 40 mg IV ONE ONE Stop: 04/02/25 14:06 Last Admin: 04/02/25 14:17 Dose: 40 mg Documented By: MOSES Ceftriaxone Sodium (Rocephin) 2,000 mg in 50 mls @ 100 mls/hr IV NOW STA Stop: 04/02/25 15:27 Last Infusion: 04/02/25 16:00 Dose: Infused Documented By: Admin: 04/02/25 15:33 Dose: 100 mls/hr Documented By: RODOLFO Doxycycline Hyclate 100 mg/ (Dextrose) 100 mls @ 50 mls/hr IV NOW STA Stop: 04/02/25 16:57 Last Admin: 04/02/25 17:36 Dose: 50 mls/hr Documented By: RODOLFO Sodium Chloride (Nss) 500 mls @ 999 mls/hr IV .Q31M ONE Stop: 04/02/25 15:31 Last Infusion: 04/02/25 16:05 Dose: Infused Documented By: Admin: 04/02/25 15:34 Dose: 999 mls/hr Documented By: RODOLFO Metoprolol Tartrate (Metoprolol Tartrate 1 Mg/Ml Vial) 5 mg IV NOW STA Stop: 04/02/25 14:06 Last Admin: 08/29/25 14:17 Dose: 5 mg Documented By: MOSES Nitroglycerin (Nitroglycerin 2% Ointment 30gm Tube) 0.5 inch EXT NOW STA Stop: 04/02/25 14:06 Last Admin: 04/02/25 14:19 Dose: 0.5 inch Documented By: OMSES Imaging Data Radiologist's Impression: Chest X-Ray 04/02/25 13:34 SINGLE VIEW CHEST CLINICAL HISTORY: Dysrhythmia FINDINGS: 2 AP, portable, upright chest radiographs are obtained. No prior studies are available for comparison at the time of dictation. The heart is enlarged and noting atherosclerotic calcification of the thoracic aorta. There is mild pulmonary vascular congestion. There is bibasilar consolidation. Small pleural effusions are suspected. No pneumothorax is seen. The skeletal structures are osteopenic. The bony thorax is grossly intact. IMPRESSION: 1. Cardiomegaly with mild pulmonary vascular congestion. 2. There is bibasilar airspace consolidation. This is somewhat nodular in configuration on the right. Correlate clinically for evidence of pneumonia/aspiration pneumonitis. Radiographic follow-up to resolution is recommended. If clinical findings are not compatible with pneumonia then a chest CT scan should be obtained to further evaluate the right lower lung. 3. Small pleural effusions are suspected ACT 112: Negative or not required by law. Electronically signed by: Jermain Mcallister M.D. 04/02/2025 2:18 PM Liver Ultrasound 04/02/25 15:40 Clinical history: Transaminitis Technique: Sonography was performed of the right upper quadrant of the abdomen Findings: This examination was limited by the patient's body habitus The liver is enlarged measuring 20.8 cm. There is no sign of cirrhosis or significant fatty infiltration. No definite liver mass is seen There is no definite evidence of cholelithiasis or cholecystitis. The gallbladder wall is mildly thickened at 5 mm. No definite sonographic Wolff sign was detected. There is no definite intrahepatic bile duct dilatation. The common bile duct is slightly dilated at 7 mm but is not optimally seen The right kidney measures 15.3 cm in length. There is no hydronephrosis. There are apparent right renal calculi, measuring up to 5 mm. There are multiple right renal cysts, measuring up to 3.5 cm The visualized pancreas, aorta, and IVC appear unremarkable. No ascites is seen Impression: 1. Mild gallbladder wall thickening without definite cholelithiasis. The wall thickening could be due to hepatitis or hypoalbuminemia 2. Hepatomegaly 3. Right renal calculi and right renal cysts Electronically signed by Nitin Holguin 04-02-2025 5:34 PM Venous Doppler Study 04/02/25 15:40 Clinical History: Swelling Technique: Venous ultrasound evaluation was performed utilizing grayscale, color Doppler and wave form evaluation. Images were also obtained with and without compression Findings: There is apparent occlusive thrombus within the popliteal veins bilaterally The bilateral common femoral, superficial femoral and visualized calf veins demonstrate normal anechoic lumens with full compressibility. Impression: DVT in the popliteal veins bilaterally Electronically signed by Nitin Holguin 04-02-2025 5:13 PM Discharge Plan Visit Data Chief Complaint: Shortness of Breath/Dyspnea Stated Complaint: SHORTNESS OF BREATH AND EDEMA IN LEGS ED Provider: Lionel Wong Discharge Problem: CHF exacerbation, Cellulitis, Hypertension, CKD (chronic kidney disease), stage III, Pneumonia, Transaminitis Patient Disposition: Admitted As Inpatient Condition: Serious Discharge Instructions Interventions: ED Discharge Assessment Last Done: 04/02/25 18:06 Forms Stand Alone Forms: My [facility] Prescriptions Prescriptions: No Action metformin 500 mg Tablet 500 mg PO DAILY atorvastatin 80 mg Tablet 80 mg PO HS magnesium oxide 400 mg (241.3 mg magnesium) Tablet 400 mg PO DAILY bumetanide 0.5 mg Tablet 0.5 mg PO DAILY aspirin 81 mg Tablet 81 mg PO DAILY metoprolol succinate 25 mg Tablet Extended Release 24 Hr 25 mg PO DAILY eplerenone 50 mg Tablet 50 mg PO DAILY ramipril 5 mg Tablet 5 mg PO DAILY Jardiance 10 mg Tablet 10 mg PO DAILY Referrals Referrals: PCP,NO [Primary Care Provider] -
[2025-04-02] MEDS ORDERED: POLYETHYLENE (MIRALAX) 17 GM PACK PO PRN (18:24)
[2025-04-02] MEDS ORDERED: ONDANSETRON INJ 2 MG/ML 2 ML VIAL IV PRN (18:24)
[2025-04-02] MEDS ORDERED: GLUCAGON FOR INJ 1 MG VIAL SQ PRN (18:24)
[2025-04-02] MEDS ORDERED: MAGNESIUM HYDROXIDE SUSP 30 ML UDC PO PRN (18:24)
[2025-04-02] MEDS ORDERED: ALUMINUM/MAGNESIUM SUSP 30 ML UDC PO PRN (18:24)
[2025-04-02] MEDS ORDERED: DEXTROSE 50% 50 ML SYRINGE IV PRN (18:24)
[2025-04-02] MEDS ORDERED: GLUCOSE 40% GEL 15 GM TUBE PO PRN (18:24)
[2025-04-02] MEDS ORDERED: GLUCOSE 10 TAB/TUBE PO PRN (18:24)
[2025-04-02] MEDS ORDERED: CARBOHYDRATES FOR HYPOGLYCEMIA PO PRN (18:24)
[2025-04-02 18:34] LABS: Appearance Urine Turbid (Clear); Bacteria Urine Automated None Seen (None Seen); Cast Urine Automated >20 /lpf (0-2); Epithelial Cell Urine Auto 0-2 /hpf (0-2); Glucose Urine UA Negative (Negative); WBC Urine Automated 21-50 /hpf (0-5)
[2025-04-02] MEDS: HEPARIN SOD (PORCINE) 1000 UNIT/ML IV ONE (19:50)
[2025-04-02] MEDS: HEPARIN 25000 UNIT/500 ML D5W 25,000 UNITS/500 ML BAG IV SCH (20:10)
[2025-04-02] MEDS: SODIUM CHLORIDE 0.9% 500 ML IV SCH (20:10)
[2025-04-02] MEDS: Heparin IV Adult Wt-Based Standard w/ INITIAL Bolus Protocol IV STA (20:18)
[2025-04-02] MEDS: INSULIN ASPART PER UNIT CHARGE SC SCH (21:46)
[2025-04-02] MEDS ORDERED: HEPARIN SOD 5,000 UNIT/0.5 ML VIAL SQ SCH (22:00)
--- NOTE | 2025-04-02 22:00 | Electrocardiogram Report ---
Test Reason : Blood Pressure : */* mmHG Vent. Rate : 116 BPM Atrial Rate : * BPM P-R Int : * ms QRS Dur : 84 ms QT Int : 338 ms P-R-T Axes : * 120 175 degrees QTcB Int : 469 ms Atrial fibrillation with rapid ventricular response with premature ventricular or aberrantly conducte d complexes Indeterminate axis Possible Inferior infarct , age undetermined Nonspecific T wave abnormality Abnormal ECG No previous ECGs available Confirmed by Med Hylton ([id number]) on 04/02/2025 9:59:59 PM Referred By: REFERRED SELF Confirmed By: Med Hylton
--- NOTE | 2025-04-02 22:01 | Electrocardiogram Report ---
Test Reason : Blood Pressure : */* mmHG Vent. Rate : 97 BPM Atrial Rate : 97 BPM P-R Int : 144 ms QRS Dur : 84 ms QT Int : 388 ms P-R-T Axes : -17 123 158 degrees QTcB Int : 492 ms Normal sinus rhythm with sinus arrhythmia Indeterminate axis Possible Inferior infarct (cited on or before 02-Apr-2025) T wave abnormality, consider lateral ischemia Prolonged QT Abnormal ECG When compared with ECG of 02-Apr-2025 13:30, Sinus rhythm has replaced Atrial fibrillation T wave inversion now evident in Lateral leads Confirmed by Med Hylton ([id number]) on 04/02/2025 10:01:01 PM Referred By: REFERRED SELF Confirmed By: Med Hylton
[2025-04-03 03:08] LABS: Hematocrit (blood only) 43.6 % (42.0-52.0); Hemoglobin 14.4 g/dl (14.0-18.0); Immature Granulocytes # (auto) 0.11 K/uL (0.01-0.20); Immature Granulocytes % (auto) 0.6 %; Mean Corpuscular Hemoglobin 29.4 pg (25.0-34.0); Mean Corpuscular Volume 89.0 fL (80.0-100.0); Platelet Count 258 K/uL (130-400); RDW Standard Deviation 50.4 fL (36.4-46.3); Red Blood Count 4.90 M/uL (4.70-6.10); White Blood Count 19.49 K/ul (4.8-10.8)
[2025-04-03 03:24] LABS: Anion Gap 11.0 (3-11); Blood Urea Nitrogen 53.0 mg/dl (6-23); Calcium 8.9 mg/dl (8.6-10.3); Carbon Dioxide 22.0 mmol/L (21-32); Chloride 102.0 mmol/L (98-107); Cholesterol 138.0 mg/dl (0-200); Creatinine Clr Calc Pharmacy 35.9 ml/min; Glucose 149.0 mg/dl (70-99(Fasting)); HDL Cholesterol 22.0 mg/dl; Potassium 4.9 mmol/L (3.5-5.1); Sodium 135.0 mmol/L (136-145); Triglycerides 94.0 mg/dl (0-150)
[2025-04-03 03:32] LABS: ANTI-Xa, UFH(UnfractionatedHep 0.39 IU/ml (0.3-0.7)
[2025-04-03] MEDS: DOXYCYCLINE HYCLATE 100 MG CAP PO SCH (05:10)
[2025-04-03] MEDS ORDERED: FUROSEMIDE 40 MG/4 ML VIAL IV SCH ×2 (07:00)
[2025-04-03] MEDS: ASPIRIN 81 MG ECTAB PO SCH (07:53)
--- NOTE | 2025-04-03 08:27 | XCELERA ---
[id number]
--- NOTE | 2025-04-03 08:31 | Cardiology Consultation ---
Date of Consultation April 03, 2025 Assessment & Plan (1) Heart failure, systolic, with acute decompensation: (2) Nonischemic cardiomyopathy: (3) Elevated troponin: (4) Uncontrolled hypertension: (5) PAF (paroxysmal atrial fibrillation): (6) Acute kidney injury: (7) Dyslipidemia, goal LDL below 70: Plan Acute decompensated systolic congestive heart failure. NYHA Class III+. LVEF 25 to 30%. QRS duration narrow. Patient appearing to be predominantly maintaining sinus rhythm, ? asymptomatic paroxysmal atrial fibrillation. Volume status: Hypervolemic. - Continue IV diuresis - Maintain normokalemia and normomagnesemia. - Continue metoprolol succinate - Utilize nitrates and hydralazine as alternative therapy in a patient with NYHA Class III HFrEF who cannot tolerate RADHIKA/ARB/ARNI - Restrict sodium to 1500 mg/day - Restrict fluids to 1.5 L/day - Daily weights on the same standing scale - Daily laboratory work - Continue telemetry, ? wearable defibrillator on discharge - Obtain records ? Paroxysmal atrial fibrillation. [id number] Score 4 points (CHF, hyperte nsion, aortic plaque, diabetes). Asymptomatic. Continue metoprolol succinate. Patient prescribed heparin at present noting bilateral lower extremity DVTs, likely transitioning to Eliquis anticoagulation when appropriate. Elevated high-sensitivity troponin. Likely due to acute illness, demand ischemia. Findings not indicative of type I myocardial infarction. Continue medical management. Acute kidney injury. Nephrology consultation pending. Hypertension. Uncontrolled. Continue metoprolol succinate. Add nitrates and hydralazine as above. Dyslipidemia. Continue atorvastatin. Target LDL cholesterol less than 55 mg/deciliter. Bilateral popliteal vein deep venous thrombosis. See above. Possible community-acquired pneumonia and cellulitis. As per hospitalist. Supervising Physician Co-Signing Physician Notes Patient seen and examined. Past medical history, surgical history, social history and family history have been reviewed. The medical record and all the above studies have been reviewed. Case DW CRIS including management. Acute HFrEF Severe NICM Abn Troponin - likely due to demand ischemia, not indicative of Type I FL MELISSA on CKD Acute DVT Morbid Obesity HTN DM HLD correct and f/u electrolytes f/u renal function IV diuretics continue ASA 81 mg po daily continue anticoagulation for acute DVT GDMT for HFrEF limited due to renal insufficiency adjust anti-HTN meds keeping systolic BP between 100-140 mmHg avoid hypovolemia keep patient euvolemic DVT prophylaxis keep LE elevated when sitting 1.5 L / 24 hr fluid restriction strict I&Os salt restriction counseling History of Present Illness Reason for Consultation: Acute on Chronic CHF exacerbation Requesting Physician: [facility] Hospitalist Service, Melva YAO [facility] Chase Jasmine MD History of Present Illness Patient is a 59-year-old male who presented to [facility] on April 02, 2025 with complaints of a low deep cough, worsening shortness of breath, fluid retention, and weight gain of approximately 15 pounds over the past month. Blood pressure elevated on presentation at 177/103. High- sensitivity troponin elevated as follows: 155.3 -> 162.8 -> 225.5 -> 187.4. EKG without acute change (? PAF). Creatinine was 2.8 mg/dL on presentation, rising to 3.09 mg/dL this morning. History and examination consistent with acute decompensated heart failure. Additional findings included possible pneumonia, cellulitis, bilateral popliteal DVTs. Patient notes history of systolic congestive heart failure diagnosed and treated in February 2024. Patient notes presentation to this hospital is very similar to his initial presentation in February 2024. Patient relocated to [facility] circa 6 months ago. He describes changing insurance which kicks in the middle of April, essentially running out of all medications approxi mately 6 weeks ago. Prior medication regimen included metoprolol, bumetanide, eplerenone, atorvastatin, ramipril, Jardiance, and aspirin. Patient denies chest pain or discomfort. Notes prior cardiac catheterization at [facility] in February 2024 without coronary artery disease per patient report. No palpitations. No history of sleep apnea. No fevers or chills. No dizziness or syncope. No melena or hematochezia. Patient notes some improvement in dyspnea and fluid retention since admission. Problem list: Systolic congestive heart failure, LVEF 25 to 30% Hypertension Dyslipidemia Type 2 diabetes mellitus Stage III chronic kidney disease Obesity Ulcerative colitis Family History: Mother with a "clot"1 week after having a car accident. Father with colorectal cancer. Patient has 1 brother who is 2 years younger, with Raynaud's Social History: Never smoker. No smokeless tobacco. Alcohol: 6 pack/week. No illegal/illicit drug use. , 3 children without cardiac issues. Employment: [employer] staff at [employer] Allergies Allergy/AdvReac Type Severity Reaction Status Date / Time No Known Allergies Allergy Unverified 04/02/25 19:58 Home Medications Medication Instructions Recorded Confirmed Type aspirin 81 mg tablet 81 mg PO DAILY 04/02/25 04/02/25 History atorvastatin 80 mg tablet 80 mg PO HS 04/02/25 04/02/25 History bumetanide 0.5 mg tablet 0.5 mg PO DAILY 04/02/25 04/02/25 History empagliflozin 10 mg tablet 10 mg PO DAILY 04/02/25 04/02/25 History (Jardiance) eplerenone 50 mg tablet 50 mg PO DAILY 04/02/25 04/02/25 History magnesium oxide 400 mg (241.3 mg 400 mg PO DAILY 04/02/25 04/02/25 History magnesium) tablet metformin 500 mg tablet 500 mg PO DAILY 04/02/25 04/02/25 History metoprolol succinate 25 mg 25 mg PO DAILY 04/02/25 04/02/25 History tablet,extended release 24 hr ramipril 5 mg tablet 5 mg PO DAILY 04/02/25 04/02/25 History Patient History Medical History Systolic CHF Ulcerative colitis Obesity Social History Smoking Status: Never smoker Second Hand Exposure: No; Do You Dip or Chew Tobacco: No; Hx Alcohol Use: Yes Alcohol type: beer Hx Substance Use: No Preferred Language: Maldivian Therapeutic Recreation Leader Required: Yes Beliefs That Will Affect Care: None Current Living Situation: Alone Feels Safe at Home: Yes Safety Concerns: Feels Safe At This Time Assistive Devices: None and Glasses Review of Systems Review of Systems: Complete Review of Systems: Constitutional: No fevers, chills, or night sweats. HEENT: Glassess. No history of amaurosis fugax. Pulmonary: Denies history of asthma, emphysema, COPD. No prior testing for sleep apnea. No history of PE. Cardiac: See above. GI/Abd: GERD. No dysphagia. No melana or hematochezia. CKD. Denies liver problems. Denies pancreatic issues. Vascular: Denies carotid artery disease, AAA, or lower extremity claudication/PAD. Hematologic: Denies coagulation disorder, anemia, or abnormal bleeding. Musculoskeletal: Arthritis. Skin: History of left lower extremity cellulitis. Neurologic: Denies history of TIA/CVA. Denies seizure disorder. Endocrine: Type II diabetes mellitus. Denies thyroid trouble. Complete Review of Systems is as stated above, negative, or noncontributory Physical Exam Physical Exam: General: A&Ox3. NAD. Elevated BMI HENT: Normocephalic. Atraumatic. Eyes: PER. Conjunctiva pink, sclera clear. Neck: JVD. HJR. Heart: Irregular at 100 bpm. Systolic murmur at the LLSB. No rub. Lungs: Diminished. Decreased. Bibasilar rales. No wheeze. Abdomen: +BS. Somewhat firm. Nontender. No masses or organomegaly. Extremities: 3+ edema above dressings. Redish brown purple discoloration, venous status dermatitis type changes Limited neurological examination is without focal deficits. Pulses: radial=2/4, posterior tibial=0/4. Results & Data Vital Signs (Past 12 Hours) Vital Signs Temp Pulse Pulse Resp BP BP Pulse Ox 04/03/25 08:19 36.8 C 97 H 18 143/117 H 92 04/03/25 07:08 96 H 04/03/25 04:33 36.8 C 105 H 21 150/111 H 93 04/03/25 02:53 96 H 04/03/25 00:32 36.5 C 110 H 20 146/99 H 94 04/02/25 22:11 O2 Del Method 04/03/25 08:19 Room Air 04/03/25 07:08 04/03/25 04:33 Room Air 04/03/25 02:53 04/03/25 00:32 Room Air 04/02/25 22:11 Room Air Laboratory Results Cardiac Enzymes 04/02/25 04/02/25 04/02/25 Range/Units 13:20 14:30 20:13 AST 110 H (13-39) U/L Troponin I High Sens 155.3 H* 162.8 H* 225.5 H* D (0-20) pg/ml B-Natriuretic Peptide 1581 H (0-100) pg/ml 04/03/25 Range/Units 02:51 AST (13-39) U/L Troponin I High Sens 187.4 H* (0-20) pg/ml B-Natriuretic Peptide (0-100) pg/ml Coagulation 04/02/25 Range/Units 13:20 PT 14.6 H (9.0-12.0) Seconds APTT 23 (21-31) Seconds B-Natriuretic Peptide 1581 H (0-100) pg/ml Lipids 04/03/25 Range/Units 02:51 Triglycerides 94 (0-150) mg/dl Cholesterol 138 (0-200) mg/dl HDL Cholesterol 22 mg/dl Cholesterol/HDL Ratio 6.3 H (0-5) CBC 04/02/25 04/03/25 Range/Units 13:20 02:51 WBC 17.75 H 19.49 H (4.8-10.8) K/ul RBC 5.01 4.90 (4.70-6.10) M/uL Hgb 14.4 14.4 (14.0-18.0) g/dl Hct 44.6 43.6 (42.0-52.0) % Plt Count 275 258 (130-400) K/uL Neut # (Auto) 15.35 H 16.01 H (1.40-6.50) K/uL Lymph # (Auto) 0.81 L 1.05 L (1.20-3.40) K/uL Hemphill # (Auto) 1.44 H 2.28 H (0.11-0.59) K/uL Eos # (Auto) 0.00 0.01 (0.00-0.50) K/uL Baso # (Auto) 0.03 0.03 (0.00-0.20) K/uL Comprehensive Metabolic Panel 04/02/25 04/03/25 Range/Units 13:20 02:51 Sodium 136 135 L (136-145) mmol/L Potassium 4.2 4.9 (3.5-5.1) mmol/L Chloride 103 102 (98-107) mmol/L Carbon Dioxide 20 L 22 (21-32) mmol/L BUN 44 H 53 H (6-23) mg/dl Creatinine 2.80 H 3.09 H (0.6-1.4) mg/dl Glucose 183 H 149 H (70-99(Fasting)) mg/dl Calcium 9.2 8.9 (8.6-10.3) mg/dl AST 110 H (13-39) U/L ALT 100 H (7-52) U/L Alkaline Phosphatase 64 (34-104) U/L Total Protein 7.2 (6.0-8.3) gm/dl Albumin 3.5 (3.4-5.0) gm/dl Intake and Output 04/02/25 04/03/25 04/03/25 22:59 06:59 14:59 Intake Total 650 / 1522.75 872.75 / 1522.75 Balance 650 / 1522.75 872.75 / 1522.75 Intake: IV 650 / 1522.75 872.75 / 1522.75 Doxycycline Hyclate 100 mg In 100 / 100 Dextrose 5% Mini-B 100 ml @ 50 mls/hr IV NOW STA Rx#:[id number] Heparin 29727 Unit/500 ml D5w 372.75 / 372.75 25,000 units In 500 ml @ 1,750 UNITS/HR 35 mls/hr IV .[id number] [facility] Rx#:[id number] Sodium Chloride 0.9% 500 ml @ 500 / 500 999 mls/hr IV .Q31M ONE Rx#: [id number] Sodium Chloride 0.9% 500 ml @ 500 / 500 80 mls/hr IV .[id number] [facility] Rx#: [id number] cefTRIAXone SODIUM 2,000 mg In 50 / 50 50 ml @ 100 mls/hr IV NOW STA Rx#:[id number] Other: # Unmeasured Voids 1 Weight 134 kg 134 kg Weight Measurement Method Built in [facility] Diagnostic Findings Initial EKG is technically limited and difficult to discern,? Paroxysmal atrial fibrillation versus sinus rhythm with sinus arrhythmia and premature atrial contractions. Possible old inferior infarct. Nonspecific T wave abnormality. QTc 469 ms. Second EKG on April 02, 2025 revealed normal sinus rhythm at 97 bpm with sinus arrhythmia, possible old inferior infarct, nonspecific diffuse T wave abnormality, QTc 492 ms. Telemetry: Sinus/sinus tachycardia, with atrial and ventricular ectopy. Heart rates around the 100 bpm. April 03, 2025 TTE: Left ventricular systolic function is severely reduced. Left ventricular ejection fraction 25 to 30%. Severe global hypokinesis of the left ventricle. Moderately dilated left atrium. Mild aortic regurgitation. Mild pulmonic valve regurgitation. Mild mitral and tricuspid regurgitation. Admission chest x-ray findings: 2 AP, portable, upright chest radiographs are obtained. No prior studies are available for comparison at the time of dictation. The heart is enlarged and noting atherosclerotic calcification of the thoracic aorta. There is mild pulmonary vascular congestion. There is bibasilar consolidation. Small pleural effusions are suspected. No pneumothorax is seen. The skeletal structures are osteopenic. The bony thorax is grossly intact. IMPRESSION: 1. Cardiomegaly with mild pulmonary vascular congestion. 2. There is bibasilar airspace consolidation. This is somewhat nodular in configuration on the right. Correlate clinically for evidence of pneumonia/aspiration pneumonitis. Radiographic follow-up to resolution is recommended. If clinical findings are not compatible with pneumonia then a chest CT scan should be obtained to further evaluate the right lower lung. 3. Small pleural effusions are suspected Chest CT LOWER NECK: Normal thyroid. LYMPH NODES: Mildly enlarged mediastinal and hilar lymph nodes CARDIOVASCULAR: Cardiac size is markedly enlarged. Coronary artery and valvula calcifications are noted. No aortic aneurysm. There is a small pericardial fluid. LUNGS: The trachea and central bronchi are widely patent. No focal confluent infiltrates are seen. There are no pulmonary nodules. PLEURA: There are no pleural effusions. There is no pneumothorax. UPPER ABDOMEN: Hepatic steatosis and hepatomegaly. Renal cysts OSSEOUS STRUCTURES: No acute findings IMPRESSION: Mildly enlarged heart with small pericardial fluid. Small left greater than right pleural fluids. Bibasilar atelectasis and patchy pneumonia Liver U/S Impression: Mild gallbladder wall thickening without definite cholelithiasis. The wall thickening could be due to hepatitis or hypoalbuminemia. Hepatomegaly. Right renal calculi and right renal cysts Venous Duplex Study dated 04/02/2025: DVT in the popliteal veins bilaterally PG Care Time/CCT Total # of Minutes Spent Total Time Spent with Patient: Total time spent is greater than 50% in coordination of care (as documented) at patient's floor/unit and/or counseling patient. I spent a total of 70 minutes on the date of service in preparation, delivery, and documentation of the care provided to this patient excluding any time spent in the performance of separately billed services. This visit was a split-shared visit with the substantive portion of the medical decision making performed by the supervising rotary cutter operator/billing provider, Dr. Espinal. Coding Level of Care Code 44431 IN/OBS CONSULT LVL 5,80M Diagnoses Heart failure, systolic, with acute decompensation I50.23 Nonischemic cardiomyopathy I42.8 Elevated troponin R79.89 Uncontrolled hypertension I10 PAF (paroxysmal atrial fibrillation) I48.0 Acute kidney injury N17.9 Dyslipidemia, goal LDL below 70 E78.5
[2025-04-03] MEDS: MAGNESIUM OXIDE 400 MG TAB PO SCH (08:40)
[2025-04-03] MEDS ORDERED: NON-FORMULARY MEDICATION (Aspirin 81 mg Tablet) PO SCH (09:00)
--- NOTE | 2025-04-03 12:37 | Hospitalist Progress Note ---
Date of Service April 03, 2025 Assessment & Plan (1) CHF exacerbation: Plan: Patient is a 59 year old M with a past medical history of chronic systolic heart failure, diabetes type II, hypertension, CKD stage III, hyperlipidemia, obesity, ulcerative colitis presenting with shortness of breath, edema, cough. Symptoms began about a week ago with nonproductive cough and lower leg edema, progressed to shortness of breath about 3 days ago with exertion. Patient relocated from [place] about 6 months ago and was taking all his medications until about 30 days ago when he had no refills remaining. Since then he's been trying to establish insurance and outpatient providers. Reportedly, he was diagnosed with heart failure about 15 months ago when hospitalized in [place] with similar presentation. He experienced weight gain, swelling to the legs and shortness of breath at that time, then lost ~50 pounds following diuretics while inpatient. Previous medications included metoprolol, bumetanide, eplerenone, atorvastatin, ACEi and aspirin. #Acute on chronic CHF exacerbation * Admit to Telemetry * Nonadherence to meds with acute exacerbation of CHF->BNP 1581 * Elevated Trop 155, then 162; NO Chest pain. Will trend Q6H x 3 * Chest Xray showing cardiomegaly with mild pulmonary vascular congestion; bibasilar airspace consolidation with nodular configuration to R lung and possible small pleural effusions-> will obtain CT Chest for r/o pericardial effusion Home diuretics is on hold and he is getting Lasix 60 mg twice daily Clinically a little better and will continue with the current diuretics Echo of the heart showed LV systolic function is severely reduced, LV ejection fraction is 25 to 30%, there is severe global hypokinesis of the left ventricle, left atrium is moderately dilated, mild aortic regurgitation, mild pulmonic valve regurgitation, mild mitral regurgitation and there is mild tricuspid regurgitation Appreciate cardiology input and recommendation Mildly elevated troponin is due to stress and the trending his downloads and doubt any ACS Acute DVT No home anticoagulation; Venous Doppler for r/o DVT showed occlusive thrombus within the popliteal veins bilaterally--> Heparin drip initiated Will need oral anticoagulation on discharge #Hypertension Hypertensive, tachypneic, tachycardiac in ED Blood pressure remains elevated this morning at 166/100 Has been getting metoprolol and will monitor blood pressure #Suspected CAP * +cough, nonproductive, short of breath, stable O2 sats at 93% RA * Elevated WBC 17.7K with mildly elevated Procal 0.52 and Lactate 3.1-> Blood cultures pending; Rocephin and Doxy given in ED for suspected CAP * Will continue with Rocephin and Doxy while inpatient * Repeat lactate came back to be elevated at 3.7 and will continue current management #Cellulitis * BLE edema with well-defined erythematic borders to shins, + ulcers with active drainage--> wound culture pending * MRSA swab -negative * Empiric Ceftriaxone and Doxy coverage; * Await wound cx results and wound care consult #CKD Stage III * BP initially elevated 156/100; received metoprolol in ED and home metoprolol 25 mg resumed; BP now 108/92 * Creatinine 2.8, BUN 44 * Hold home ACEi * Hold nephro toxic agents if possible; Trend renal functioning with AM labs * Await nephrology evaluation #Transaminitis * Elevated LFTs-> Bili 1.7, AST 110, ALT 100; suspect hepatic congestion * No abdominal symptoms * Obtain Liver Ultrasound for r/o alternative etiology * Ultrasound showed hepatomegaly and thickening of the gallbladder wall without any cholecystitis or cholelithiasis Increasing LFTs could be secondary to fatty liver disease/mild hepatic congestion from CHF Will monitor LFTs and doubt any hepatitis #Hyperlipidemia * Atorvastatin on high dose at home- resumed * will check Lipids with AM labs #Diabetes Type II, non-insulin dependent * A1C 6.8% * Hold home metformin and Jardiance * SSI while inpatient; Goal BSG 110-140, adjust as needed * Diabetic teaching at discharge needed DVT Ppx: Heparin Code status: Full PCP: No PCP Dispo: Admit to Tele for further management; Discharge planning- to establish PCP and Cardiology follow-up at d/c (2) Cellulitis: (3) Hypertension: (4) CKD (chronic kidney disease), stage III: (5) Transaminitis: (6) Hyperlipidemia: (7) Diabetes mellitus, type II: Admission and Anticipated Discharge Date Admission Date: April 02, 2025 Subjective 04/03/2025 Patient was seen and examined in telemetry unit He has been complaining of bilateral leg swelling with cellulitis, weight gain and shortness of breath for the last few days to few weeks He feels a little better since admission but he still remains symptomatic Denies any chest pain and/or palpitation, denies any nausea no vomiting and does not have any fever and/or chills Review of Systems Review of Systems: All systems reviewed and are unremarkable except as noted below Physical Exam Physical Exam: Sitting on a chair without any acute distress Constitutional: well developed, well nourished, + ill appearing and + morbidly obese Eyes: PERRL, conjunctivae normal, anicteric sclerae ENMT: external ear and nose normal, oropharynx normal Neck: trachea midline, no thyromegaly Respiratory: + respiratory distress (Minimal distress at rest) Auscultation: + diminished lung sounds and + crackles (Bibasilar crackles) Cardiovascular: Rate/Rhythm: regular rate and regular rhythm; not tachycardic Heart Sounds: normal S1 and normal S2; no murmur Extremities: + edema (1-2+ edema bilaterally) Bilateral lower legs are bandaged due to wounds Gastrointestinal (Abdomen): Inspection/Auscultation: + abdomen distended and normal bowel sounds Percussion/Palpation: abdomen soft; abdomen nontender Musculoskeletal: No acute arthritis involving any of the joint Neurologic: normal touch/pain/proprioception and moves all extremities; no focal motor deficits Lymphatic: no cervical or axillary lymphadenopathy Results & Data Results & Data Vital Signs (Past 12 Hours) Vital Signs Temp Pulse Pulse Resp BP BP Pulse Ox 04/03/25 11:16 36.7 C 66 18 166/100 H 94 04/03/25 09:00 04/03/25 08:19 36.8 C 97 H 18 143/117 H 92 04/03/25 07:08 96 H 04/03/25 04:33 36.8 C 105 H 21 150/111 H 93 04/03/25 02:53 96 H O2 Del Method 04/03/25 11:16 Room Air 04/03/25 09:00 Room Air 04/03/25 08:19 Room Air 04/03/25 07:08 04/03/25 04:33 Room Air 04/03/25 02:53 Laboratory Results Short CBC 04/02/25 04/03/25 Range/Units 13:20 02:51 WBC 17.75 H 19.49 H (4.8-10.8) K/ul Hgb 14.4 14.4 (14.0-18.0) g/dl Hct 44.6 43.6 (42.0-52.0) % Plt Count 275 258 (130-400) K/uL BMP 04/02/25 04/03/25 13:20 02:51 Sodium 136 135 L Potassium 4.2 4.9 Chloride 103 102 Carbon Dioxide 20 L 22 BUN 44 H 53 H Creatinine 2.80 H 3.09 H Glucose 183 H 149 H Calcium 9.2 8.9 Liver Function 04/02/25 Range/Units 13:20 Total Bilirubin 1.7 H (0.2-1.0) mg/dl AST 110 H (13-39) U/L ALT 100 H (7-52) U/L Alkaline Phosphatase 64 (34-104) U/L Albumin 3.5 (3.4-5.0) gm/dl Urine 04/02/25 Range/Units 17:43 Urine Color Dark Yellow Urine Appearance Turbid A (Clear) Urine pH 5.0 (4.5-7.5) Ur Specific [place] 1.017 (1.000-1.030) Urine Protein 3+ H (Negative) Urine Glucose (UA) Negative (Negative) Medications Administered Current Inpatient Medications Acetaminophen (Acetaminophen 325 Mg Tab) 650 mg PO Q4H PRN PRN Reason: Pain or Fever Stop: 05/02/25 18:23 Al Hydrox/Mg Hydrox/Simethicone (Aluminum/Magnesium Susp 30 Ml Udc) 15 ml PO Q4H PRN PRN Reason: Dyspepsia Stop: 05/02/25 18:23 Aspirin (Aspirin 81 Mg Ectab) 81 mg PO QAM [facility] Stop: 05/03/25 08:59 Last Admin: 04/03/25 07:53 Dose: 81 mg Atorvastatin Calcium (Atorvastatin 40 Mg Tab) 80 mg PO QAM [facility] Stop: 05/02/25 15:59 Last Admin: 04/03/25 07:53 Dose: 80 mg Dextrose (Dextrose 50% 50 Ml Syringe) 25 - 50 ml IV UD PRN; Protocol PRN Reason: Hypoglycemia Protocol Stop: 05/02/25 18:23 Doxycycline Hyclate (Doxycycline Hyclate 100 Mg Cap) 100 mg PO Q12H [facility] Stop: 04/08/25 04:59 Last Admin: 04/03/25 05:10 Dose: 100 mg Furosemide (Furosemide 40 Mg/4 Ml Vial) 60 mg IV [id number] [facility] Stop: 05/03/25 13:59 Glucagon (Glucagon For Inj 1 Mg Vial) 1 mg SQ UD PRN; Protocol PRN Reason: Hypoglycemia Protocol Stop: 05/02/25 18:23 Glucose (Glucose 40% Gel 15 Gm Tube) 15 - 30 gm PO UD PRN; Protocol PRN Reason: Hypoglycemia Protocol Stop: 05/02/25 18:23 Glucose (Glucose 10 Tab/Tube) 4 - 8 tab PO UD PRN; Protocol PRN Reason: Hypoglycemia Protocol Stop: 05/02/25 18:23 Heparin Sodium/Dextrose (Heparin 81454 Unit/500 Ml D5w) 25,000 units in 500 mls @ 35 mls/hr IV .[id number] [facility]; Protocol Stop: 05/02/25 19:59 Last Admin: 04/03/25 09:36 Dose: 1,750 units/hr, 35 mls/hr Ceftriaxone Sodium (Rocephin) 2,000 mg in 50 mls @ 100 mls/hr IV Q24H [facility] Stop: 04/08/25 15:59 Insulin Aspart (Insulin Aspart Per Unit Charge) 0 units SC ACHS [facility] Stop: 05/02/25 20:59 Last Admin: 04/03/25 12:37 Dose: 12 units Magnesium Hydroxide (Magnesium Hydroxide Susp 30 Ml Udc) 30 ml PO Q12H PRN PRN Reason: Constipation Stop: 05/02/25 18:23 Magnesium Oxide (Magnesium Oxide 400 Mg Tab) 400 mg PO DAILY [facility] Stop: 05/03/25 08:59 Last Admin: 04/03/25 08:40 Dose: 400 mg Metoprolol Succinate (Metoprolol Succ 25mg Ext Rel Tab) 25 mg PO BID [facility] Stop: 05/03/25 20:59 Miscellaneous (Carbohydrates For Hypoglycemia ) 15 - 30 gm PO UD PRN PRN Reason: Hypoglycemia Protocol Stop: 05/02/25 18:23 Ondansetron HCl (Ondansetron Inj 2 Mg/Ml 2 Ml Vial) 4 mg IV Q6H PRN PRN Reason: Nausea Stop: 05/02/25 18:23 Polyethylene Glycol (Polyethylene (Miralax) 17 Gm Pack) 17 gm PO DAILY PRN PRN Reason: Constipation Stop: 05/02/25 18:23
[2025-04-03] MEDS: FUROSEMIDE 40 MG/4 ML VIAL IV SCH (14:02)
--- NOTE | 2025-04-03 14:46 | Nephrology Consultation ---
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 His base line weight is around 250 pounds, he is up by around 30 pounds. Admission serum creatinine was 2.8 which has risen to 3.09 today, he is hypertensive and says that the present dose of diuretic has not improved his urine output, - Increase Lasix 100 mg twice daily, add 2.5 mg of metolazone from tomorrow - He needs accurate input and output and daily standing weights to guide his diuretic therapy - continue on 1.5 L fluid restriction and less than 2 g sodium diet. - Daily BMP continue to hold RADHIKA and Jardiance -replace electrolytes to keep potassium more than 4 and magnesium more than 2 -Renally dose antibiotics his hypertension is fluid driven, this will improve as his fluid status improves (2) Heart failure, systolic, with acute decompensation: diuretics as above - cardiology on board (3) Diabetes mellitus, type II: (4) Cellulitis: History of Present Illness Reason for Consultation: MELISSA on CKD 3 Attending Physician: Chase Jasmine MD History of Present Illness 59 year old M with a presenting with shortness of breath, edema, cough. Symptoms began about a week ago with nonproductive cough and lower leg edema, and progressed to shortness of breath with exertion. He relocated from [place] about 6 months ago and was taking all his medications until about 30 days ago when he had no refills remaining. Since then he's been trying to establish insurance and outpatient providers. Reportedly, he was diagnosed with heart failure about 15 months ago when hospitalized in [place] with similar presentation. He experienced weight gain, swelling to the legs and shortness of breath at that time, then lost ~50 pounds following diuretics while inpatient. Previous medications included metoprolol, bumetanide, eplerenone, atorvastatin, ACEi and aspirin. with Past medical history of chronic systolic heart failure, diabetes type II, hypertension, CKD stage III, hyperlipidemia, obesity, ulcerative colitis Allergies Allergy/AdvReac Type Severity Reaction Status Date / Time No Known Allergies Allergy Unverified 04/02/25 19:58 Home Medications Medication Instructions Recorded Confirmed Type aspirin 81 mg tablet 81 mg PO DAILY 04/02/25 04/02/25 History atorvastatin 80 mg tablet 80 mg PO HS 04/02/25 04/02/25 History bumetanide 0.5 mg tablet 0.5 mg PO DAILY 04/02/25 04/02/25 History empagliflozin 10 mg tablet 10 mg PO DAILY 04/02/25 04/02/25 History (Jardiance) eplerenone 50 mg tablet 50 mg PO DAILY 04/02/25 04/02/25 History magnesium oxide 400 mg (241.3 mg 400 mg PO DAILY 04/02/25 04/02/25 History magnesium) tablet metformin 500 mg tablet 500 mg PO DAILY 04/02/25 04/02/25 History metoprolol succinate 25 mg 25 mg PO DAILY 04/02/25 04/02/25 History tablet,extended release 24 hr ramipril 5 mg tablet 5 mg PO DAILY 04/02/25 04/02/25 History Patient History Medical History Systolic CHF Ulcerative colitis Obesity Social History Smoking Status: Never smoker Second Hand Exposure: No; Do You Dip or Chew Tobacco: No; Hx Alcohol Use: Yes Alcohol type: beer Hx Substance Use: No Preferred Language: Dominican Information Security Officer Required: Yes Beliefs That Will Affect Care: None Current Living Situation: Alone Feels Safe at Home: Yes Safety Concerns: Feels Safe At This Time Assistive Devices: None and Glasses Review of Systems 2 Review of Systems: In respiratory distress He feels a little better since admission but he still remains symptomatic Denies any chest pain and/or palpitation, denies any nausea no vomiting and does not have any fever and/or chills Physical Exam 2 Physical Exam: Sitting on a chair, in acute distress + respiratory distress (Minimal distress at rest) Auscultation: + diminished lung sounds and + crackles (Bibasilar crackles) Extremities: + edema (1-2+ edema bilaterally) Bilateral lower legs are bandaged due to wounds + abdomen distended and normal bowel sounds Percussion/Palpation: abdomen soft; abdomen nontender Results & Data Vital Signs (Past 12 Hours) Vital Signs Temp Pulse Pulse Resp BP BP Pulse Ox 04/03/25 11:16 36.7 C 66 18 166/100 H 94 04/03/25 09:00 04/03/25 08:19 36.8 C 97 H 18 143/117 H 92 04/03/25 07:08 96 H 04/03/25 04:33 36.8 C 105 H 21 150/111 H 93 04/03/25 02:53 96 H O2 Del Method 04/03/25 11:16 Room Air 04/03/25 09:00 Room Air 04/03/25 08:19 Room Air 04/03/25 07:08 04/03/25 04:33 Room Air 04/03/25 02:53 Laboratory Results 04/03/25 02:51 04/03/25 02:51
[2025-04-03] MEDS: FUROSEMIDE 40 MG/4 ML VIAL IV ONE (15:11)
[2025-04-03] MEDS: cefTRIAXone SODIUM 2,000 MG/50 ML BAG IV SCH (16:32)
[2025-04-03] MEDS: METOPROLOL SUCC 25MG EXT REL TAB PO SCH (21:10)
[2025-04-04 07:24] LABS: Hematocrit (blood only) 46.2 % (42.0-52.0); Hemoglobin 14.8 g/dl (14.0-18.0); Immature Granulocytes # (auto) 0.14 K/uL (0.01-0.20); Immature Granulocytes % (auto) 0.7 %; Mean Corpuscular Hemoglobin 29.0 pg (25.0-34.0); Mean Corpuscular Volume 90.4 fL (80.0-100.0); Platelet Count 267 K/uL (130-400); RDW Standard Deviation 50.9 fL (36.4-46.3); Red Blood Count 5.11 M/uL (4.70-6.10); White Blood Count 18.90 K/ul (4.8-10.8)
[2025-04-04 07:42] LABS: Alanine Aminotransferase 461.0 U/L (7-52); Albumin Globulin Ratio 1.0 (0.9-2); Alkaline Phosphatase 74.0 U/L (34-104); Anion Gap 10.0 (3-11); Bilirubin,Total 1.1 mg/dl (0.2-1.0); Blood Urea Nitrogen 59.0 mg/dl (6-23); Calcium 8.9 mg/dl (8.6-10.3); Carbon Dioxide 24.0 mmol/L (21-32); Chloride 102.0 mmol/L (98-107); Creatinine Clr Calc Pharmacy 38.3 ml/min; Globulin 3.5 gm/dl (2.5-4.0); Glucose 121.0 mg/dl (70-99(Fasting)); Magnesium 2.2 mg/dl (1.7-2.4); Potassium 4.0 mmol/L (3.5-5.1); Sodium 136.0 mmol/L (136-145); Total Protein 6.9 gm/dl (6.0-8.3)
[2025-04-04] MEDS: FUROSEMIDE 40 MG/4 ML VIAL IV SCH (07:45)
[2025-04-04 07:52] LABS: ANTI-Xa, UFH(UnfractionatedHep 0.37 IU/ml (0.3-0.7)
--- NOTE | 2025-04-04 10:52 | Hospitalist Progress Note ---
Date of Service April 04, 2025 Assessment & Plan (1) CHF exacerbation: Plan: Patient is a 59 year old M with a past medical history of chronic systolic heart failure, diabetes type II, hypertension, CKD stage III, hyperlipidemia, obesity, ulcerative colitis presenting with shortness of breath, edema, cough. Symptoms began about a week ago with nonproductive cough and lower leg edema, progressed to shortness of breath about 3 days ago with exertion. Patient relocated from [place] about 6 months ago and was taking all his medications until about 30 days ago when he had no refills remaining. Since then he's been trying to establish insurance and outpatient providers. Reportedly, he was diagnosed with heart failure about 15 months ago when hospitalized in [place] with similar presentation. He experienced weight gain, swelling to the legs and shortness of breath at that time, then lost ~50 pounds following diuretics while inpatient. Previous medications included metoprolol, bumetanide, eplerenone, atorvastatin, ACEi and aspirin. #Acute on chronic CHF exacerbation * Admit to Telemetry * Nonadherence to meds with acute exacerbation of CHF->BNP 1581 * Elevated Trop 155, then 162; NO Chest pain. Will trend Q6H x 3 * Chest Xray showing cardiomegaly with mild pulmonary vascular congestion; bibasilar airspace consolidation with nodular configuration to R lung and possible small pleural effusions-> will obtain CT Chest for r/o pericardial effusion Home diuretics is on hold and he is getting Lasix 60 mg twice daily Clinically a little better and will continue with the current diuretics Echo of the heart showed LV systolic function is severely reduced, LV ejection fraction is 25 to 30%, there is severe global hypokinesis of the left ventricle, left atrium is moderately dilated, mild aortic regurgitation, mild pulmonic valve regurgitation, mild mitral regurgitation and there is mild tricuspid regurgitation Appreciate cardiology input and recommendation Mildly elevated troponin is due to stress and the trending his downloads and doubt any ACS Clinically much better and has been diuresing enough Has been getting furosemide 100 mg IV twice daily and metolazone 2.5 mg daily May need thoracentesis if the effusion does not get any better with subsequent days Will continue current management Acute DVT No home anticoagulation; Venous Doppler for r/o DVT showed occlusive thrombus within the popliteal veins bilaterally--> Heparin drip initiated Will need oral anticoagulation on discharge Will decide on oral anticoagulation #Hypertension Hypertensive, tachypneic, tachycardiac in ED Blood pressure remains elevated this morning at 166/100 Has been getting metoprolol and will monitor blood pressure Blood pressure remains elevated at 153/125 and will observe for now with current medications #Suspected CAP * +cough, nonproductive, short of breath, stable O2 sats at 93% RA * Elevated WBC 17.7K with mildly elevated Procal 0.52 and Lactate 3.1-> Blood cultures pending; Rocephin and Doxy given in ED for suspected CAP * Will continue with Rocephin and Doxy while inpatient * Repeat lactate came back to be elevated at 3.7 and will continue current management Will continue with intravenous ceftriaxone and doxycycline Blood cultures have been negative and urine culture is growing 3 types of organisms #Cellulitis * BLE edema with well-defined erythematic borders to shins, + ulcers with active drainage--> wound culture pending * MRSA swab -negative * Empiric Ceftriaxone and Doxy coverage; * Await wound cx results and wound care consult #CKD Stage III * BP initially elevated 156/100; received metoprolol in ED and home metoprolol 25 mg resumed; BP now 108/92 * Creatinine 2.8, BUN 44 * Hold home ACEi * Hold nephro toxic agents if possible; Trend renal functioning with AM labs Appreciate nephrology input and recommendation Creatinine looking better even with higher doses of intravenous Lasix and will monitor kidney function #Transaminitis * Elevated LFTs-> Bili 1.7, AST 110, ALT 100; suspect hepatic congestion * No abdominal symptoms * Obtain Liver Ultrasound for r/o alternative etiology * Ultrasound showed hepatomegaly and thickening of the gallbladder wall without any cholecystitis or cholelithiasis Increasing LFTs could be secondary to fatty liver disease/mild hepatic congestion from CHF Will monitor LFTs and doubt any hepatitis-Will check for hepatitis panel and still seems to be fatty liver/congestive changes from CHF #Hyperlipidemia * Atorvastatin on high dose at home- resumed * will check Lipids with AM labs #Diabetes Type II, non-insulin dependent * A1C 6.8% * Hold home metformin and Jardiance * SSI while inpatient; Goal BSG 110-140, adjust as needed * Diabetic teaching at discharge needed DVT Ppx: Heparin Code status: Full PCP: No PCP Dispo: Admit to Tele for further management; Discharge planning- CM to establish PCP and Cardiology follow-up at d/c (2) Cellulitis: (3) Hypertension: (4) CKD (chronic kidney disease), stage III: (5) Transaminitis: (6) Hyperlipidemia: (7) Diabetes mellitus, type II: Admission and Anticipated Discharge Date Admission Date: April 02, 2025 Subjective 04/03/2025 Patient was seen and examined in telemetry unit He has been complaining of bilateral leg swelling with cellulitis, weight gain and shortness of breath for the last few days to few weeks He feels a little better since admission but he still remains symptomatic Denies any chest pain and/or palpitation, denies any nausea no vomiting and does not have any fever and/or chills 04/04/2025 The patient was seen and examined in telemetry unit He has been feeling much better today with decreasing shortness of breath and leg swelling Denies any chest pain or palpitation Review of Systems Review of Systems: All systems reviewed and are unremarkable except as noted below Physical Exam Physical Exam: Sitting on a chair without any acute distress Constitutional: well developed, well nourished, + ill appearing and + morbidly obese Eyes: PERRL, conjunctivae normal, anicteric sclerae ENMT: external ear and nose normal, oropharynx normal Neck: trachea midline, no thyromegaly Respiratory: + respiratory distress (Minimal distress at rest) Auscultation: + diminished lung sounds and + crackles (Bibasilar crackles) Cardiovascular: Rate/Rhythm: regular rate and regular rhythm; not tachycardic Heart Sounds: normal S1 and normal S2; no murmur Extremities: + edema (1-2+ edema bilaterally) Gastrointestinal (Abdomen): Inspection/Auscultation: + abdomen distended and normal bowel sounds Percussion/Palpation: abdomen soft; abdomen nontender Neurologic: normal touch/pain/proprioception and moves all extremities; no focal motor deficits Lymphatic: no cervical or axillary lymphadenopathy Results & Data Results & Data Vital Signs (Past 12 Hours) Vital Signs Temp Pulse Pulse Resp BP Pulse Ox O2 Del Method 04/04/25 07:25 36.7 C 67 19 153/125 H 93 Room Air 04/04/25 05:29 94 H 04/04/25 03:52 36.4 C L 83 18 170/111 H 93 Room Air 04/03/25 23:58 36.5 C 73 18 117/82 94 Room Air 04/03/25 23:38 Room Air Laboratory Results Short CBC 04/04/25 Range/Units 06:26 WBC 18.90 H (4.8-10.8) K/ul Hgb 14.8 (14.0-18.0) g/dl Hct 46.2 (42.0-52.0) % Plt Count 267 (130-400) K/uL BMP 04/04/25 06:26 Sodium 136 Potassium 4.0 Chloride 102 Carbon Dioxide 24 BUN 59 H Creatinine 2.90 H Glucose 121 H Calcium 8.9 Liver Function 04/04/25 Range/Units 06:26 Total Bilirubin 1.1 H (0.2-1.0) mg/dl AST 272 H (13-39) U/L ALT 461 H (7-52) U/L Alkaline Phosphatase 74 (34-104) U/L Albumin 3.4 (3.4-5.0) gm/dl Medications Administered Current Inpatient Medications Acetaminophen (Acetaminophen 325 Mg Tab) 650 mg PO Q4H PRN PRN Reason: Pain or Fever Stop: 05/02/25 18:23 Al Hydrox/Mg Hydrox/Simethicone (Aluminum/Magnesium Susp 30 Ml Udc) 15 ml PO Q4H PRN PRN Reason: Dyspepsia Stop: 05/02/25 18:23 Aspirin (Aspirin 81 Mg Ectab) 81 mg PO QAM [facility] Stop: 05/03/25 08:59 Last Admin: 04/04/25 07:46 Dose: 81 mg Atorvastatin Calcium (Atorvastatin 40 Mg Tab) 80 mg PO QAM [facility] Stop: 05/02/25 15:59 Last Admin: 04/04/25 07:46 Dose: 80 mg Dextrose (Dextrose 50% 50 Ml Syringe) 25 - 50 ml IV UD PRN; Protocol PRN Reason: Hypoglycemia Protocol Stop: 05/02/25 18:23 Doxycycline Hyclate (Doxycycline Hyclate 100 Mg Cap) 100 mg PO Q12H [facility] Stop: 04/08/25 04:59 Last Admin: 04/04/25 05:47 Dose: 100 mg Furosemide (Furosemide 40 Mg/4 Ml Vial) 100 mg IV [id number] [facility] Stop: 05/04/25 06:59 Last Admin: 04/04/25 07:45 Dose: 100 mg Glucagon (Glucagon For Inj 1 Mg Vial) 1 mg SQ UD PRN; Protocol PRN Reason: Hypoglycemia Protocol Stop: 05/02/25 18:23 Glucose (Glucose 40% Gel 15 Gm Tube) 15 - 30 gm PO UD PRN; Protocol PRN Reason: Hypoglycemia Protocol Stop: 05/02/25 18:23 Glucose (Glucose 10 Tab/Tube) 4 - 8 tab PO UD PRN; Protocol PRN Reason: Hypoglycemia Protocol Stop: 05/02/25 18:23 Heparin Sodium/Dextrose (Heparin 56937 Unit/500 Ml D5w) 25,000 units in 500 mls @ 35 mls/hr IV .[id number] [facility]; Protocol Stop: 05/02/25 19:59 Last Admin: 04/04/25 01:15 Dose: 1,750 units/hr, 35 mls/hr Ceftriaxone Sodium (Rocephin) 2,000 mg in 50 mls @ 100 mls/hr IV Q24H [facility] Stop: 04/08/25 15:59 Last Infusion: 04/03/25 17:57 Dose: Infused Insulin Aspart (Insulin Aspart Per Unit Charge) 0 units SC ACHS [facility] Stop: 05/02/25 20:59 Last Admin: 04/04/25 07:46 Dose: 9 units Magnesium Hydroxide (Magnesium Hydroxide Susp 30 Ml Udc) 30 ml PO Q12H PRN PRN Reason: Constipation Stop: 05/02/25 18:23 Magnesium Oxide (Magnesium Oxide 400 Mg Tab) 400 mg PO DAILY [facility] Stop: 05/03/25 08:59 Last Admin: 04/04/25 07:51 Dose: 400 mg Metolazone (Metolazone 2.5 Mg Tablet) 2.5 mg PO QAM [facility] Stop: 05/04/25 08:59 Last Admin: 04/04/25 07:45 Dose: 2.5 mg Metoprolol Succinate (Metoprolol Succ 25mg Ext Rel Tab) 25 mg PO BID [facility] Stop: 05/03/25 20:59 Last Admin: 04/04/25 07:46 Dose: 25 mg Miscellaneous (Carbohydrates For Hypoglycemia ) 15 - 30 gm PO UD PRN PRN Reason: Hypoglycemia Protocol Stop: 05/02/25 18:23 Ondansetron HCl (Ondansetron Inj 2 Mg/Ml 2 Ml Vial) 4 mg IV Q6H PRN PRN Reason: Nausea Stop: 05/02/25 18:23 Polyethylene Glycol (Polyethylene (Miralax) 17 Gm Pack) 17 gm PO DAILY PRN PRN Reason: Constipation Stop: 05/02/25 18:23 Better.
--- NOTE | 2025-04-04 15:19 | Cardiology Progress Note ---
Date of Service April 04, 2025 Assessment & Plan (1) Heart failure, systolic, with acute decompensation: (2) Nonischemic cardiomyopathy: (3) Elevated troponin: (4) Uncontrolled hypertension: (5) PAF (paroxysmal atrial fibrillation): (6) Acute kidney injury: (7) Dyslipidemia, goal LDL below 70: Plan Acute decompensated systolic congestive heart failure. NYHA Class III+. LVEF 25 to 30%. QRS duration narrow. Patient appearing to be predominantly maintaining sinus rhythm, no evidence of atrial fibrillation Acute HFrEF Severe NICM Abn Troponin - likely due to demand ischemia, not indicative of Type I NH MELISSA on CKD Acute DVT Morbid Obesity HTN DM HLD Cellulitis - defer to hospitalist correct and f/u electrolytes f/u renal function IV diuretics continue ASA 81 mg po daily continue anticoagulation for acute DVT -> may transition to DOAC GDMT for HFrEF limited due to renal insufficiency adjust anti-HTN meds keeping systolic BP between 100-140 mmHg avoid hypovolemia keep patient euvolemic keep LE elevated when sitting 1.5 L / 24 hr fluid restriction strict I&Os daily weights salt restriction counseling [facility] on discharge Admission and Anticipated Discharge Date Admission Date: April 02, 2025 Subjective Patient on exam is lying in bed in NAD; no c/o cp, sob, palpitations, dizziness, LOC; leg swelling is better; negative about 2L in the last 24 hrs Review of Systems Review of Systems: Complete Review of Systems: Constitutional: No fevers, chills, or night sweats. HEENT: [place]. No history of amaurosis fugax. Pulmonary: Denies history of asthma, emphysema, COPD. No prior testing for sleep apnea. No history of PE. Cardiac: See above. GI/Abd: GERD. No dysphagia. No melana or hematochezia. CKD. Denies liver problems. Denies pancreatic issues. Vascular: Denies carotid artery disease, AAA, or lower extremity c laudication/PAD. Hematologic: Denies coagulation disorder, anemia, or abnormal bleeding. Musculoskeletal: Arthritis. Skin: History of left lower extremity cellulitis. Neurologic: Denies history of TIA/CVA. Denies seizure disorder. Endocrine: Type II diabetes mellitus. Denies thyroid trouble. Complete Review of Systems is as stated above, negative, or noncontributory Physical Exam Physical Exam: General: A&Ox3. NAD. Elevated BMI HENT: Normocephalic. Atraumatic. Eyes: PER. Conjunctiva pink, sclera clear. Neck: JVD. HJR. Heart: S1S2. Systolic murmur at the LLSB. No rub. Lungs: Diminished. Decreased. Bibasilar rales. No wheeze. Abdomen: +BS. Somewhat firm. Nontender. No masses or organomegaly. Extremities: 2+ edema above dressings. Redish brown purple discoloration, venous status dermatitis type changes Limited neurological examination is without focal deficits. Results & Data Vital Signs (Past 12 Hours) Vital Signs Temp Pulse Pulse Resp BP Pulse Ox O2 Del Method 04/04/25 11:26 36.8 C 56 L 18 126/97 91 Room Air 04/04/25 07:25 36.7 C 67 19 153/125 H 93 Room Air 04/04/25 05:29 94 H 04/04/25 03:52 36.4 C L 83 18 170/111 H 93 Room Air Laboratory Results Cardiac Enzymes 04/04/25 Range/Units 06:26 AST 272 H (13-39) U/L CBC 04/04/25 Range/Units 06:26 WBC 18.90 H (4.8-10.8) K/ul RBC 5.11 (4.70-6.10) M/uL Hgb 14.8 (14.0-18.0) g/dl Hct 46.2 (42.0-52.0) % Plt Count 267 (130-400) K/uL Neut # (Auto) 16.00 H (1.40-6.50) K/uL Lymph # (Auto) 0.95 L (1.20-3.40) K/uL [place] # (Auto) 1.77 H (0.11-0.59) K/uL Eos # (Auto) 0.01 (0.00-0.50) K/uL Baso # (Auto) 0.03 (0.00-0.20) K/uL Comprehensive Metabolic Panel 04/04/25 Range/Units 06:26 Sodium 136 (136-145) mmol/L Potassium 4.0 (3.5-5.1) mmol/L Chloride 102 (98-107) mmol/L Carbon Dioxide 24 (21-32) mmol/L BUN 59 H (6-23) mg/dl Creatinine 2.90 H (0.6-1.4) mg/dl Glucose 121 H (70-99(Fasting)) mg/dl Calcium 8.9 (8.6-10.3) mg/dl AST 272 H (13-39) U/L ALT 461 H (7-52) U/L Alkaline Phosphatase 74 (34-104) U/L Total Protein 6.9 (6.0-8.3) gm/dl Albumin 3.4 (3.4-5.0) gm/dl Intake and Output 04/04/25 04/04/25 04/04/25 06:59 14:59 22:59 Intake Total 500 / 1547.417 240 / 240 Output Total 2201 Balance 497 / 1544.417 -1961 / Intake: IV 500 / 647.417 Heparin 18135 Unit/500 ml D5w 500 / 597.417 25,000 units In 500 ml @ 1,750 UNITS/HR 35 mls/hr IV [id number] Rx#:[id number] Oral 240 / 240 Output: Urine 2199 / 2199 # Bowel Movements Other: # Unmeasured Voids 3 Weight 134 kg Diagnostic Findings Laboratory Results WBC 18.90 K/ul (4.8-10.8) H 04/04/25 06:26 RBC 5.11 M/uL (4.70-6.10) 04/04/25 06:26 Hgb 14.8 g/dl (14.0-18.0) 04/04/25 06:26 Hct 46.2 % (42.0-52.0) 04/04/25 06:26 MCV 90.4 fL (80.0-100.0) 04/04/25 06:26 MCH 29.0 pg (25.0-34.0) 04/04/25 06: MCHC 32.0 g/dL (32.0-36.0) 04/04/25 06:26 RDW Std Deviation 50.9 fL (36.4-46.3) H 04/04/25 06:26 RDW Coeff of Shasha 15.6 % (11.5-14.5) H 04/04/25 06:26 Plt Count 267 K/uL (130-400) 04/04/25 06:26 MPV 11.0 fL (9.4-12.4) 04/04/25 06:26 Immature Gran % (Auto) 0.7 % 04/04/25 06: Neut % (Auto) 84.6 % 04/04/25 06:26 Lymph % (Auto) 5.0 % 04/04/25 06:26 [place] % (Auto) 9.4 % 04/04/25 06:26 Eos % (Auto) 0.1 % 04/04/25 06:26 Baso % (Auto) 0.2 % 04/04/25 06:26 Neut # (Auto) 16.00 K/uL (1.40-6.50) H 04/04/25 06:26 Lymph # (Auto) 0.95 K/uL (1.20-3.40) L 04/04/25 06:26 [place] # (Auto) 1.77 K/uL (0.11-0.59) H 04/04/25 06:26 Eos # (Auto) 0.01 K/uL (0.00-0.50) 04/04/25 06:26 Baso # (Auto) 0.03 K/uL (0.00-0.20) 04/04/25 06:26 Immature Gran # (Auto) 0.14 K/uL (0.01-0.20) 04/04/25 06:26 Absolute Nucleated RBC 0.07 K/uL (0.00-0.12) 04/04/25 06:26 Nucleated RBC % (auto) 0.4 % 04/04/25 06:26 PT 14.6 Seconds (9.0-12.0) H 04/02/25 13:20 INR 1.4 (0.9-1.1) H 04/02/25 13:20 APTT 23 Seconds (21-31) 04/02/25 13:20 PTT Ratio 0.9 04/02/25 13:20 Heparin Anti-Xa, Unfract 0.37 IU/ml (0.3-0.7) 04/04/25 06:26 Sodium 136 mmol/L (136-145) 04/04/25 06:26 Potassium 4.0 mmol/L (3.5-5.1) 04/04/25 06:26 Chloride 102 mmol/L (98-107) 04/04/25 06:26 Carbon Dioxide 24 mmol/L (21-32) 04/04/25 06:26 Anion Gap 10 (3-11) 04/04/25 06:26 BUN 59 mg/dl (6-23) H 04/04/25 06:26 Creatinine 2.90 mg/dl (0.6-1.4) H 04/04/25 06:26 Est Cr Clr Drug Dosing 38.3 ml/min 04/04/25 06:26 eGFR 24.31 04/04/25 06:26 BUN/Creatinine Ratio 20.3 (10-20) H 04/04/25 06:26 Glucose 121 mg/dl (70-99(Fasting)) H 04/04/25 06:26 POC Glucose 114 mg/dl (70-99) H 04/04/25 11:23 Estimat Average Glucose 148 mg/dl 04/02/25 13:20 Hemoglobin A1c 6.8 % (4.5-5.6) H 04/02/25 13:20 Lactate 3.7 mmol/L (0.4-2.0) H* 04/03/25 00:34 Calcium 8.9 mg/dl (8.6-10.3) 04/04/25 06:26 Phosphorus 4.4 mg/dl (2.5-4.9) 04/04/25 06:26 Magnesium 2.2 mg/dl (1.7-2.4) 04/04/25 06:26 Total Bilirubin 1.1 mg/dl (0.2-1.0) H 04/04/25 06:26 AST 272 U/L (13-39) H 04/04/25 06:26 ALT 461 U/L (7-52) H 04/04/25 06:26 Alkaline Phosphatase 74 U/L (34-104) 04/04/25 06:26 Troponin I High Sens 167.8 pg/ml (0-20) H* 04/03/25 08:13 B-Natriuretic Peptide 1581 pg/ml (0-100) H 04/02/25 13:20 Total Protein 6.9 gm/dl (6.0-8.3) 04/04/25 06:26 Albumin 3.4 gm/dl (3.4-5.0) 04/04/25 06:26 Globulin 3.5 gm/dl (2.5-4.0) 04/04/25 06:26 Albumin/Globulin Ratio 1.0 (0.9-2) 04/04/25 06:26 Triglycerides 94 mg/dl (0-150) 04/03/25 02:51 Cholesterol 138 mg/dl (0-200) 04/03/25 02:51 LDL Cholesterol, Calc 97 mg/dl 04/03/25 02:51 VLDL Cholesterol, Calc 19 mg/dl (0-30) 04/03/25 02:51 HDL Cholesterol 22 mg/dl 04/03/25 02:51 Cholesterol/HDL Ratio 6.3 (0-5) H 04/03/25 02:51 Procalcitonin 0.52 ng/ml (0-0.5) H 04/02/25 13:20 TSH 3.352 uIu/ml (0.300-4.500) 04/02/25 13:20 Urine Color Dark Yellow 04/02/25 17:43 Urine Appearance Turbid (Clear) A 04/02/25 17:43 Urine pH 5.0 (4.5-7.5) 04/02/25 17:43 Ur Specific [place] 1.017 (1.000-1.030) 04/02/25 17:43 Urine Protein 3+ (Negative) H 04/02/25 17:43 Urine Glucose (UA) Negative (Negative) 04/02/25 17:43 Urine Ketones Negative (Negative) 04/02/25 17:43 Urine Blood Trace (Negative) H 04/02/25 17:43 Urine Nitrite Negative (Negative) 04/02/25 17:43 Urine Bilirubin Negative (Negative) 04/02/25 17:43 Urine Urobilinogen Negative (Negative) 04/02/25 17:43 Ur Leukocyte Esterase 2+ (Negative) H 04/02/25 17:43 Urine WBC (Auto) 21-50 /hpf (0-5) H 04/02/25 17:43 Urine RBC (Auto) 3-5 /hpf (0-2) H 04/02/25 17:43 U Hyaline Cast (Auto) >20 /lpf (0-2) H 04/02/25 17:43 U Epithel Cells (Auto) 0-2 /hpf (0-2) 04/02/25 17:43 Urine Bacteria (Auto) None Seen (None Seen) 04/02/25 17:43 Hyaline Casts Present /lpf (None Presnt) A 04/02/25 17:43 Urine Mucus Present (None Prsent) A 04/02/25 17:43 Urine Comment 04/02/25 17:43 Nasal Screen MRSA (PCR) Negative (Negative) 04/02/25 15:35 Impressions Chest X-Ray 04/02/25 13:34 SINGLE VIEW CHEST CLINICAL HISTORY: Dysrhythmia FINDINGS: 2 AP, portable, upright chest radiographs are obtained. No prior studies are available for comparison at the time of dictation. The heart is enlarged and noting atherosclerotic calcification of the thoracic aorta. There is mild pulmonary vascular congestion. There is bibasilar consolidation. Small pleural effusions are suspected. No pneumothorax is seen. The skeletal structures are osteopenic. The bony thorax is grossly intact. IMPRESSION: 1. Cardiomegaly with mild pulmonary vascular congestion. 2. There is bibasilar airspace consolidation. This is somewhat nodular in configuration on the right. Correlate clinically for evidence of pneumonia/aspiration pneumonitis. Radiographic follow-up to resolution is recommended. If clinical findings are not compatible with pneumonia then a chest CT scan should be obtained to further evaluate the right lower lung. 3. Small pleural effusions are suspected ACT 112: Negative or not required by law. Electronically signed by: Jermain Mcallister M.D. 04/02/2025 2:[address] 04/02/25 15:35 CT CHEST WITHOUT CONTRAST: HISTORY: TECHNIQUE: CT of the chest was obtained without intravenous contrast. Coronal and sagittal reformats were created. COMPARISON: FINDINGS: LOWER NECK: Normal thyroid. LYMPH NODES: Mildly enlarged mediastinal and hilar lymph nodes CARDIOVASCULAR: Cardiac size is markedly enlarged. Coronary artery and valvula calcifications are noted. No aortic aneurysm. There is a small pericardial fluid. LUNGS: The trachea and central bronchi are widely patent. No focal confluent infiltrates are seen. There are no pulmonary nodules. PLEURA: There are no pleural effusions. There is no pneumothorax. UPPER ABDOMEN: Hepatic steatosis and hepatomegaly. Renal cysts OSSEOUS STRUCTURES: No acute findings IMPRESSION: Mildly enlarged heart with small pericardial fluid. Small left greater than right pleural fluids. Bibasilar atelectasis and patchy pneumonia Electronically signed by Brooks Zuniga 04-02-2025 6:03 PM Liver Ultrasound 04/02/25 15:40 Clinical history: Transaminitis Technique: Sonography was performed of the right upper quadrant of the abdomen Findings: This examination was limited by the patient's body habitus The liver is enlarged measuring 20.8 cm. There is no sign of cirrhosis or significant fatty infiltration. No definite liver mass is seen There is no definite evidence of cholelithiasis or cholecystitis. The gallbladder wall is mildly thickened at 5 mm. No definite sonographic Wolff sign was detected. There is no definite intrahepatic bile duct dilatation. The common bile duct is slightly dilated at 7 mm but is not optimally seen The right kidney measures 15.3 cm in length. There is no hydronephrosis. There are apparent right renal calculi, measuring up to 5 mm. There are multiple right renal cysts, measuring up to 3.5 cm The visualized pancreas, aorta, and IVC appear unremarkable. No ascites is seen Impression: 1. Mild gallbladder wall thickening without definite cholelithiasis. The wall thickening could be due to hepatitis or hypoalbuminemia 2. Hepatomegaly 3. Right renal calculi and right renal cysts Electronically signed by Nitin Holguin 04-02-2025 5:34 PM Venous Doppler Study 04/02/25 15:40 Clinical History: Swelling Technique: Venous ultrasound evaluation was performed utilizing grayscale, color Doppler and wave form evaluation. Images were also obtained with and without compression Findings: There is apparent occlusive thrombus within the popliteal veins bilaterally The bilateral common femoral, superficial femoral and visualized calf veins demonstrate normal anechoic lumens with full compressibility. Impression: DVT in the popliteal veins bilaterally Electronically signed by Nitin Holguin 04-02-2025 5:13 PM Medications Administered Home Medications Medication Instructions Recorded Confirmed Last Taken aspirin 81 mg tablet 81 mg PO DAILY 04/02/25 04/02/25 Unknown atorvastatin 80 mg tablet 80 mg PO HS 04/02/25 04/02/25 Unknown bumetanide 0.5 mg tablet 0.5 mg PO DAILY 04/02/25 04/02/25 Unknown empagliflozin 10 mg tablet 10 mg PO DAILY 04/02/25 04/02/25 Unknown (Jardiance) eplerenone 50 mg tablet 50 mg PO DAILY 04/02/25 04/02/25 Unknown magnesium oxide 400 mg (241.3 mg 400 mg PO DAILY 04/02/25 04/02/25 Unknown magnesium) tablet metformin 500 mg tablet 500 mg PO DAILY 04/02/25 04/02/25 Unknown metoprolol succinate 25 mg 25 mg PO DAILY 04/02/25 04/02/25 Unknown tablet,extended release 24 hr ramipril 5 mg tablet 5 mg PO DAILY 04/02/25 04/02/25 Unknown Active Medications Generic Name Dose Route Start Last Admin Trade Name Dion PRN Reason Stop Dose Admin Aspirin 81 mg 04/03/25 09:00 04/04/25 07:46 Aspirin 81 Mg Ectab PO 05/03/25 08:59 81 mg QAM PEDRO Administration Atorvastatin Calcium 80 mg 04/02/25 16:00 04/04/25 07:46 Atorvastatin 40 Mg Tab PO 05/02/25 15:59 80 mg QAM PEDRO Administration Doxycycline Hyclate 100 mg 04/03/25 05:00 04/04/25 05:47 Doxycycline Hyclate 100 Mg Cap PO 04/08/25 04:59 100 mg Q12H PEDRO Administration Furosemide 100 mg 04/04/25 07:00 04/04/25 13:58 Furosemide 40 Mg/4 Ml Vial IV 05/04/25 06:59 100 mg [id number] PEDRO Administration Heparin Sodium/Dextrose 25,000 units in 500 mls @ 35 mls/hr 04/02/25 20:00 04/04/25 01:15 Heparin 48972 Unit/500 Ml D5w IV 05/02/25 19:59 1,750 units/hr .[id number] PEDRO 35 mls/hr Administration Protocol 1,750 UNITS/HR Ceftriaxone Sodium 2,000 mg in 50 mls @ 100 mls/hr 04/03/25 16:00 04/03/25 17:57 Rocephin IV 04/08/25 15:59 Infused Q24H PEDRO Infusion Insulin Aspart 0 units 04/02/25 21:00 04/04/25 11:33 Insulin Aspart Per Unit Charge SC 05/02/25 20:59 6 units ACHS PEDRO Administration Magnesium Oxide 400 mg 04/03/25 09:00 04/04/25 07:51 Magnesium Oxide 400 Mg Tab PO 05/03/25 08:59 400 mg DAILY PEDRO Administration Metolazone 2.5 mg 04/04/25 09:00 04/04/25 07:45 Metolazone 2.5 Mg Tablet PO 05/04/25 08:59 2.5 mg QAM PEDRO Administration Metoprolol Succinate 25 mg 04/03/25 21:00 04/04/25 07:46 Metoprolol Succ 25mg Ext Rel Tab PO 05/03/25 20:59 25 mg BID PEDRO Administration PG Care Time/CCT Total # of Minutes Spent Total Time Spent with Patient: Total time spent is greater than 50% in coordination of care (as documented) at patient's floor/unit and/or counseling patient: Coding Level of Care Code 88935 SUB INP/OBS CARE 3/50MIN Diagnoses Heart failure, systolic, with acute decompensation I50.23 Nonischemic cardiomyopathy I42.8 Elevated troponin R79.89 Uncontrolled hypertension I10 PAF (paroxysmal atrial fibrillation) I48.0 Acute kidney injury N17.9 Dyslipidemia, goal LDL below 70 E78.5
[2025-04-05 07:53] LABS: Alanine Aminotransferase 314.0 U/L (7-52); Albumin Globulin Ratio 0.9 (0.9-2); Alkaline Phosphatase 69.0 U/L (34-104); Bilirubin,Total 0.8 mg/dl (0.2-1.0); Blood Urea Nitrogen 62.0 mg/dl (6-23); Calcium 9.0 mg/dl (8.6-10.3); Carbon Dioxide 27.0 mmol/L (21-32); Chloride 98.0 mmol/L (98-107); Creatinine Clr Calc Pharmacy 35.6 ml/min; Globulin 3.5 gm/dl (2.5-4.0); Glucose 135.0 mg/dl (70-99(Fasting)); Total Protein 6.5 gm/dl (6.0-8.3)
[2025-04-05 07:58] LABS: Anion Gap 12.0 (3-11); Magnesium 2.0 mg/dl (1.7-2.4); Potassium 3.6 mmol/L (3.5-5.1); Sodium 137.0 mmol/L (136-145)
[2025-04-05 08:37] LABS: ANTI-Xa, UFH(UnfractionatedHep 0.31 IU/ml (0.3-0.7)
[2025-04-05 09:17] LABS: Hep B Surface Ag with confirm Negative (Negative)
[2025-04-05 09:22] LABS: Hep C Ab Rflx HepCQuant RNA Negative (Negative)
--- NOTE | 2025-04-05 10:41 | Cardiology Progress Note ---
Date of Service April 05, 2025 Assessment & Plan (1) Heart failure, systolic, with acute decompensation: (2) Nonischemic cardiomyopathy: (3) Elevated troponin: (4) Uncontrolled hypertension: (5) PAF (paroxysmal atrial fibrillation): (6) Acute kidney injury: (7) Dyslipidemia, goal LDL below 70: Plan Acute decompensated systolic congestive heart failure. NYHA Class III+. LVEF 25 to 30%. QRS duration narrow. Patient appearing to be predominantly maintaining sinus rhythm, no evidence of atrial fibrillation Acute HFrEF Severe NICM Abn Troponin - likely due to demand ischemia, not indicative of Type I OR MELISSA on CKD Acute DVT Morbid Obesity HTN DM HLD Cellulitis - defer to hospitalist Abn LFTs correct and f/u electrolytes f/u renal function IV to PO diuretics likely in a day or two repeat CXR in AM continue ASA 81 mg po daily continue anticoagulation for acute DVT -> may transition to DOAC GDMT for HFrEF limited due to renal insufficiency adjust anti-HTN meds keeping systolic BP between 100-140 mmHg avoid hypovolemia keep patient euvolemic keep LE elevated when sitting 1.5 L / 24 hr fluid restriction strict I&Os daily weights salt restriction counseling [facility] on discharge Admission and Anticipated Discharge Date Admission Date: April 02, 2025 Subjective Patient on exam is sitting in bed in NAD; no c/o cp, sob, palpitations, dizziness, LOC; leg swelling is better - with dressing; negative about 3L in the last 24 hrs; patient states that he feels much better today Review of Systems Review of Systems: Complete Review of Systems: Constitutional: No fevers, chills, or night sweats. HEENT: Glass[place]. No history of amaurosis fugax. Pulmonary: Denies history of asthma, emphysema, COPD. No prior testing for sleep apnea. No history of PE. Cardiac: See above. GI/Abd: GERD. No dysphagia. No melana or hematochezia. CKD. Denies liver problems. Denies pancreatic issues. Vascular: Denies carotid artery disease, AAA, or lower extremity claudication/PAD. Hematologic: Denies coagulation disorder, anemia, or abnormal bleeding. Musculoskeletal: Arthritis. Skin: History of left lower extremity cellulitis. Neurologic: Denies history of TIA/CVA. Denies seizure disorder. Endocrine: Type II diabetes mellitus. Denies thyroid trouble. Complete Review of Systems is as stated above, negative, or noncontributory Physical Exam Physical Exam: General: A&Ox3. NAD. Elevated BMI HENT: Normocephalic. Atraumatic. Eyes: PER. Conjunctiva pink, sclera clear. Neck: JVD. HJR. Heart: S1S2. Systolic murmur at the LLSB. No rub. Lungs: decreased BS at bases. No wheezing. Abdomen: +BS. Somewhat firm. Nontender. No masses or organomegaly. Extremities: 1-2+ edema above dressings. Redish brown purple discoloration, ve nous status dermatitis type changes Limited neurological examination is without focal deficits. Results & Data Vital Signs (Past 12 Hours) Vital Signs Temp Pulse Pulse Resp BP Pulse Ox O2 Del Method 04/05/25 04:51 36.6 C 79 16 119/88 89 L Room Air 04/04/25 23:51 88 04/04/25 22:57 36.5 C 66 18 134/88 89 L Room Air Laboratory Results Cardiac Enzymes 04/05/25 Range/Units 06:07 AST 117 H (13-39) U/L Comprehensive Metabolic Panel 04/05/25 Range/Units 06:07 Sodium 137 (136-145) mmol/L Potassium 3.6 (3.5-5.1) mmol/L Chloride 98 (98-107) mmol/L Carbon Dioxide 27 (21-32) mmol/L BUN 62 H (6-23) mg/dl Creatinine 2.70 H (0.6-1.4) mg/dl Glucose 135 H (70-99(Fasting)) mg/dl Calcium 9.0 (8.6-10.3) mg/dl AST 117 H (13-39) U/L ALT 314 H (7-52) U/L Alkaline Phosphatase 69 (34-104) U/L Total Protein 6.5 (6.0-8.3) gm/dl Albumin 3.0 L (3.4-5.0) gm/dl Intake and Output 04/04/25 04/05/25 04/05/25 22:59 06:59 14:59 Intake Total 550 / 1387.833 597.833 / 1387.833 Output Total 2550 / 5502 750 / 5502 Balance -2000 / -4114.167 -152.167 / -4114.167 Intake: IV 550 / 947.833 397.833 / 947.833 Heparin 07309 Unit/500 ml D5w 500 / 897.833 397.833 / 897.833 25,000 units In 500 ml @ 1,750 UNITS/HR 35 mls/hr IV .[id number] PEDRO Rx#:[id number] cefTRIAXone SODIUM 2,000 mg In 50 / 50 50 ml @ 100 mls/hr IV Q24H PEDRO Rx#:[id number] Oral 200 / 440 Output: Urine 2550 / 5500 750 / 5500 Other: # Unmeasured Voids 2 Weight 101.605 kg 130.1 kg Weight Measurement Method Built in Bedscale Standing Scale Patient Weight 04/06/25 06:59 Weight 130.1 kg Diagnostic Findings Laboratory Results WBC 18.90 K/ul (4.8-10.8) H 04/04/25 06:26 RBC 5.11 M/uL (4.70-6.10) 04/04/25 06:26 Hgb 14.8 g/dl (14.0-18.0) 04/04/25 06:26 Hct 46.2 % (42.0-52.0) 04/04/25 06:26 MCV 90.4 fL (80.0-100.0) 04/04/25 06:26 MCH 29.0 pg (25.0-34.0) 04/04/25 06:26 MCHC 32.0 g/dL (32.0-36.0) 04/04/25 06:26 RDW Std Deviation 50.9 fL (36.4-46.3) H 04/04/25 06:26 RDW Coeff of Shasha 15.6 % (11.5-14.5) H 04/04/25 06:26 Plt Count 267 K/uL (130-400) 04/04/25 06:26 MPV 11.0 fL (9.4-12.4) 04/04/25 06:26 Immature Gran % (Auto) 0.7 % 04/04/25 06:26 Neut % (Auto) 84.6 % 04/04/25 06:26 Lymph % (Auto) 5.0 % 04/04/25 06:26 Moore % (Auto) 9.4 % 04/04/25 06:26 Eos % (Auto) 0.1 % 04/04/25 06:26 Baso % (Auto) 0.2 % 04/04/25 06:26 Neut # (Auto) 16.00 K/uL (1.40-6.50) H 04/04/25 06:26 Lymph # (Auto) 0.95 K/uL (1.20-3.40) L 04/04/25 06:26 Moore # (Auto) 1.77 K/uL (0.11-0.59) H 04/04/25 06:26 Eos # (Auto) 0.01 K/uL (0.00-0.50) 04/04/25 06:26 Baso # (Auto) 0.03 K/uL (0.00-0.20) 04/04/25 06: Immature Gran # (Auto) 0.14 K/uL (0.01-0.20) 04/04/25 06:26 Absolute Nucleated RBC 0.07 K/uL (0.00-0.12) 04/04/25 06: Nucleated RBC % (auto) 0.4 % 04/04/25 06:26 PT 14.6 Seconds (9.0-12.0) H 04/02/25 13:20 INR 1.4 (0.9-1.1) H 04/02/25 13:20 APTT 23 Seconds (21-31) 04/02/25 13:20 PTT Ratio 0.9 04/02/25 13:20 Heparin Anti-Xa, Unfract 0.31 IU/ml (0.3-0.7) 04/05/25 06:07 Sodium 137 mmol/L (136-145) 04/05/25 06:07 Potassium 3.6 mmol/L (3.5-5.1) 04/05/25 06:07 Chloride 98 mmol/L (98-107) 04/05/25 06:07 Carbon Dioxide 27 mmol/L (21-32) 04/05/25 06:07 Anion Gap 12 (3-11) H 04/05/25 06:07 BUN 62 mg/dl (6-23) H 04/05/25 06:07 Creatinine 2.70 mg/dl (0.6-1.4) H 04/05/25 06:07 Est Cr Clr Drug Dosing 35.6 ml/min 04/05/25 06:07 eGFR 26.49 04/05/25 06:07 BUN/Creatinine Ratio 23.0 (10-20) H 04/05/25 06:07 Glucose 135 mg/dl (70-99(Fasting)) H 04/05/25 06:07 POC Glucose 135 mg/dl (70-99) H 04/05/25 07:32 Estimat Average Glucose 148 mg/dl 04/02/25 13:20 Hemoglobin A1c 6.8 % (4.5-5.6) H 04/02/25 13:20 Lactate 3.7 mmol/L (0.4-2.0) H* 04/03/25 00:34 Calcium 9.0 mg/dl (8.6-10.3) 04/05/25 06:07 Phosphorus 4.5 mg/dl (2.5-4.9) 04/05/25 06:07 Magnesium 2.0 mg/dl (1.7-2.4) 04/05/25 06:07 Total Bilirubin 0.8 mg/dl (0.2-1.0) 04/05/25 06:07 AST 117 U/L (13-39) H 04/05/25 06:07 ALT 314 U/L (7-52) H 04/05/25 06:07 Alkaline Phosphatase 69 U/L (34-104) 04/05/25 06:07 Troponin I High Sens 167.8 pg/ml (0-20) H* 04/03/25 08:13 B-Natriuretic Peptide 1581 pg/ml (0-100) H 04/02/25 13:20 Total Protein 6.5 gm/dl (6.0-8.3) 04/05/25 06:07 Albumin 3.0 gm/dl (3.4-5.0) L 04/05/25 06:07 Globulin 3.5 gm/dl (2.5-4.0) 04/05/25 06:07 Albumin/Globulin Ratio 0.9 (0.9-2) 04/05/25 06:07 Triglycerides 94 mg/dl (0-150) 04/03/25 02:51 Cholesterol 138 mg/dl (0-200) 04/03/25 02:51 LDL Cholesterol, Calc 97 mg/dl 04/03/25 02:51 VLDL Cholesterol, Calc 19 mg/dl (0-30) 04/03/25 02:51 HDL Cholesterol 22 mg/dl 04/03/25 02:51 Cholesterol/HDL Ratio 6.3 (0-5) H 04/03/25 02:51 Procalcitonin 0.52 ng/ml (0-0.5) H 04/02/25 13:20 TSH 3.352 uIu/ml (0.300-4.500) 04/02/25 13:20 Urine Color Dark Yellow 04/02/25 17:43 Urine Appearance Turbid (Clear) A 04/02/25 17:43 Urine pH 5.0 (4.5-7.5) 04/02/25 17:43 Ur Specific White 1.017 (1.000-1.030) 04/02/25 17:43 Urine Protein 3+ (Negative) H 04/02/25 17:43 Urine Glucose (UA) Negative (Negative) 04/02/25 17:43 Urine Ketones Negative (Negative) 04/02/25 17:43 Urine Blood Trace (Negative) H 04/02/25 17:43 Urine Nitrite Negative (Negative) 04/02/25 17:43 Urine Bilirubin Negative (Negative) 04/02/25 17:43 Urine Urobilinogen Negative (Negative) 04/02/25 17:43 Ur Leukocyte Esterase 2+ (Negative) H 04/02/25 17:43 Urine WBC (Auto) 21-50 /hpf (0-5) H 04/02/25 17:43 Urine RBC (Auto) 3-5 /hpf (0-2) H 04/02/25 17:43 U Hyaline Cast (Auto) >20 /lpf (0-2) H 04/02/25 17:43 U Epithel Cells (Auto) 0-2 /hpf (0-2) 04/02/25 17:43 Urine Bacteria (Auto) None Seen (None Seen) 04/02/25 17:43 Hyaline Casts Present /lpf (None Presnt) A 04/02/25 17:43 Urine Mucus Present (None Prsent) A 04/02/25 17:43 Urine Comment 04/02/25 17:43 Nasal Screen MRSA (PCR) Negative (Negative) 04/02/25 15:35 Hep Bs Antigen Negative (Negative) 04/05/25 06:07 Hepatitis C Antibody Negative (Negative) 04/05/25 06:07 Impressions Chest X-Ray 04/02/25 13:34 SINGLE VIEW CHEST CLINICAL HISTORY: Dysrhythmia FINDINGS: 2 AP, portable, upright chest radiographs are obtained. No prior studies are available for comparison at the time of dictation. The heart is enlarged and noting atherosclerotic calcification of the thoracic aorta. There is mild pulmonary vascular congestion. There is bibasilar consolidation. Small pleural effusions are suspected. No pneumothorax is seen. The skeletal structures are osteopenic. The bony thorax is grossly intact. IMPRESSION: 1. Cardiomegaly with mild pulmonary vascular congestion. 2. There is bibasilar airspace consolidation. This is somewhat nodular in configuration on the right. Correlate clinically for evidence of pneumonia/aspiration pneumonitis. Radiographic follow-up to resolution is recommended. If clinical findings are not compatible with pneumonia then a chest CT scan should be obtained to further evaluate the right lower lung. 3. Small pleural effusions are suspected ACT 112: Negative or not required by law. Electronically signed by: Jermain Mcallister M.D. 04/02/2025 2:[address] 04/02/25 15:35 CT CHEST WITHOUT CONTRAST: HISTORY: TECHNIQUE: CT of the chest was obtained without intravenous contrast. Coronal and sagittal reformats were created. COMPARISON: FINDINGS: LOWER NECK: Normal thyroid. LYMPH NODES: Mildly enlarged mediastinal and hilar lymph nodes CARDIOVASCULAR: Cardiac size is markedly enlarged. Coronary artery and valvula calcifications are noted. No aortic aneurysm. There is a small pericardial fluid. LUNGS: The trachea and central bronchi are widely patent. No focal confluent infiltrates are seen. There are no pulmonary nodules. PLEURA: There are no pleural effusions. There is no pneumothorax. UPPER ABDOMEN: Hepatic steatosis and hepatomegaly. Renal cysts OSSEOUS STRUCTURES: No acute findings IMPRESSION: Mildly enlarged heart with small pericardial fluid. Small left greater than right pleural fluids. Bibasilar atelectasis and patchy pneumonia Electronically signed by Brooks Zuniga 04-02-2025 6:03 PM Liver Ultrasound 04/02/25 15:40 Clinical history: Transaminitis Technique: Sonography was performed of the right upper quadrant of the abdomen Findings: This examination was limited by the patient's body habitus The liver is enlarged measuring 20.8 cm. There is no sign of cirrhosis or significant fatty infiltration. No definite liver mass is seen There is no definite evidence of cholelithiasis or cholecystitis. The gallbladder wall is mildly thickened at 5 mm. No definite sonographic Wolff sign was detected. There is no definite intrahepatic bile duct dilatation. The common bile duct is slightly dilated at 7 mm but is not optimally seen The right kidney measures 15.3 cm in length. There is no hydronephrosis. There are apparent right renal calculi, measuring up to 5 mm. There are multiple right renal cysts, measuring up to 3.5 cm The visualized pancreas, aorta, and IVC appear unremarkable. No ascites is seen Impression: 1. Mild gallbladder wall thickening without definite cholelithiasis. The wall thickening could be due to hepatitis or hypoalbuminemia 2. Hepatomegaly 3. Right renal calculi and right renal cysts Electronically signed by Nitin Holguin 04-02-2025 5:34 PM Venous Doppler Study 04/02/25 15:40 Clinical History: Swelling Technique: Venous ultrasound evaluation was performed utilizing grayscale, color Doppler and wave form evaluation. Images were also obtained with and without compression Findings: There is apparent occlusive thrombus within the popliteal veins bilaterally The bilateral common femoral, superficial femoral and visualized calf veins demonstrate normal anechoic lumens with full compressibility. Impression: DVT in the popliteal veins bilaterally Electronically signed by Nitin Holguin 04-02-2025 5:13 PM 04/03/25 ECHOCARDIOGRAM Interpretation Summary Left ventricular systolic function is severely reduced. Left Ventricular Ejection Fraction = 25-30%. There is severe global hypokinesis of the left ventricle. The left atrium is moderately dilated. Mild aortic regurgitation. Mild pulmonic valvular regurgitation. There is mild mitral regurgitation. There is mild tricuspid regurgitation. PG Care Time/CCT Total # of Minutes Spent Total Time Spent with Patient: Total time spent is greater than 50% in coordination of care (as documented) at patient's floor/unit and/or counseling patient: Coding Level of Care Code 90370 SUB INP/OBS CARE 3/50MIN Diagnoses Heart failure, systolic, with acute decompensation I50.23 Nonischemic cardiomyopathy I42.8 Elevated troponin R79.89 Uncontrolled hypertension I10 PAF (paroxysmal atrial fibrillation) I48.0 Acute kidney injury N17.9 Dyslipidemia, goal LDL below 70 E78.5
--- NOTE | 2025-04-05 12:02 | Hospitalist Progress Note ---
Date of Service April 05, 2025 Assessment & Plan (1) CHF exacerbation: Plan: Patient is a 59 year old M with a past medical history of chronic systolic heart failure, diabetes type II, hypertension, CKD stage III, hyperlipidemia, obesity, ulcerative colitis presenting with shortness of breath, edema, cough. Symptoms began about a week ago with nonproductive cough and lower leg edema, progressed to shortness of breath about 3 days ago with exertion. Patient relocated from [place] about 6 months ago and was taking all his medications until about 30 days ago when he had no refills remaining. Since then he's been trying to establish insurance and outpatient providers. Reportedly, he was diagnosed with heart failure about 15 months ago when hospitalized in [place] with similar presentation. He experienced weight gain, swelling to the legs and shortness of breath at that time, then lost ~50 pounds following diuretics while inpatient. Previous medications included metoprolol, bumetanide, eplerenone, atorvastatin, ACEi and aspirin. #Acute on chronic CHF exacerbation * Admit to Telemetry * Nonadherence to meds with acute exacerbation of CHF->BNP 1581 * Elevated Trop 155, then 162; NO Chest pain. Will trend Q6H x 3 * Chest Xray showing cardiomegaly with mild pulmonary vascular congestion; bibasilar airspace consolidation with nodular configuration to R lung and possible small pleural effusions-> will obtain CT Chest for r/o pericardial effusion Home diuretics is on hold and he is getting Lasix 60 mg twice daily Clinically a little better and will continue with the current diuretics Echo of the heart showed LV systolic function is severely reduced, LV ejection fraction is 25 to 30%, there is severe global hypokinesis of the left ventricle, left atrium is moderately dilated, mild aortic regurgitation, mild pulmonic valve regurgitation, mild mitral regurgitation and there is mild tricuspid regurgitation Appreciate cardiology input and recommendation Mildly elevated troponin is due to stress and the trending his downloads and doubt any ACS Clinically much better and has been diuresing enough Has been getting furosemide 100 mg IV twice daily and metolazone 2.5 mg daily May need thoracentesis if the effusion does not get any better with subsequent days Clinically much better and so far negative balance of more than 1 L Will continue current diuretic doses and monitor electrolytes Acute DVT No home anticoagulation; Venous Doppler for r/o DVT showed occlusive thrombus within the popliteal veins bilaterally--> Heparin drip initiated Will need oral anticoagulation on discharge Will decide on oral anticoagulation #Hypertension Hypertensive, tachypneic, tachycardiac in ED Blood pressure remains elevated this morning at 166/100 Has been getting metoprolol and will monitor blood pressure Blood pressure remains elevated at 153/125 and will observe for now with current medications Blood pressure remains stable #Suspected CAP * +cough, nonproductive, short of breath, stable O2 sats at 93% RA * Elevated WBC 17.7K with mildly elevated Procal 0.52 and Lactate 3.1-> Blood cultures pending; Rocephin and Doxy given in ED for suspected CAP * Will continue with Rocephin and Doxy while inpatient * Repeat lactate came back to be elevated at 3.7 and will continue current matthew alva Will continue with intravenous ceftriaxone and doxycycline Blood cultures have been negative and urine culture is growing 3 types of organisms Will repeat chest x-ray tomorrow #Cellulitis * BLE edema with well-defined erythematic borders to shins, + ulcers with active drainage--> wound culture pending * MRSA swab -negative * Empiric Ceftriaxone and Doxy coverage; * Await wound cx results and wound care consult #CKD Stage III * BP initially elevated 156/100; received metoprolol in ED and home metoprolol 25 mg resumed; BP now 108/92 * Creatinine 2.8, BUN 44 * Hold home ACEi * Hold nephro toxic agents if possible; Trend renal functioning with AM labs Appreciate nephrology input and recommendation Creatinine looking better even with higher doses of intravenous Lasix and will monitor kidney function Creatinine remains stable at 2.70 #Transaminitis * Elevated LFTs-> Bili 1.7, AST 110, ALT 100; suspect hepatic congestion * No abdominal symptoms * Obtain Liver Ultrasound for r/o alternative etiology * Ultrasound showed hepatomegaly and thickening of the gallbladder wall without any cholecystitis or cholelithiasis Increasing LFTs could be secondary to fatty liver disease/mild hepatic congestion from CHF Will monitor LFTs and doubt any hepatitis-Will check for hepatitis panel and still seems to be fatty liver/congestive changes from CHF Hepatitis B&C antigens are negative and LFTs are getting better #Hyperlipidemia * Atorvastatin on high dose at home- resumed * will check Lipids with AM labs #Diabetes Type II, non-insulin dependent * A1C 6.8% * Hold home metformin and Jardiance * SSI while inpatient; Goal BSG 110-140, adjust as needed * Diabetic teaching at discharge needed DVT Ppx: Heparin Code status: Full PCP: No PCP Dispo: Admit to Tele for further management; Discharge planning- to establish PCP and Cardiology follow-up at d/c (2) Cellulitis: (3) Hypertension: (4) CKD (chronic kidney disease), stage III: (5) Transaminitis: (6) Hyperlipidemia: (7) Diabetes mellitus, type II: Admission and Anticipated Discharge Date Admission Date: April 02, 2025 Subjective 04/03/2025 Patient was seen and examined in telemetry unit He has been complaining of bilateral leg swelling with cellulitis, weight gain and shortness of breath for the last few days to few weeks He feels a little better since admission but he still remains symptomatic Denies any chest pain and/or palpitation, denies any nausea no vomiting and does not have any fever and/or chills 04/04/2025 The patient was seen and examined in telemetry unit He has been feeling much better today with decreasing shortness of breath and leg swelling Denies any chest pain or palpitation 04/05/2025 The patient was seen and examined in telemetry unit He has been stable and feeling and feeling much better today Denying any shortness of breath at rest, no chest pain and/or palpitation Has been making out enough urine Review of Systems Review of Systems: All systems reviewed and are unremarkable except as noted below Physical Exam Physical Exam: Sitting on a chair without any acute distress Constitutional: well developed, well nourished, + ill appearing and + morbidly obese Eyes: PERRL, conjunctivae normal, anicteric sclerae ENMT: external ear and nose normal, oropharynx normal Neck: trachea midline, no thyromegaly Respiratory: + respiratory distress (Minimal distress at rest) Auscultation: + diminished lung sounds and + crackles (Bibasilar crackles) Cardiovascular: Rate/Rhythm: regular rate and regular rhythm; not tachycardic Heart Sounds: normal S1 and normal S2; no murmur Extremities: + edema (1-2+ edema bilaterally) Gastrointestinal (Abdomen): Inspection/Auscultation: + abdomen distended and normal bowel sounds Percussion/Palpation: abdomen soft; abdomen nontender Neurologic: normal touch/pain/proprioception and moves all extremities; no focal motor deficits Lymphatic: no cervical or axillary lymphadenopathy Results & Data Results & Data Vital Signs (Past 12 Hours) Vital Signs Temp Pulse Resp BP Pulse Ox O2 Del Method 04/05/25 04:51 36.6 C 79 16 119/88 89 L Room Air Laboratory Results [facility] 04/05/25 06:07 Sodium 137 Potassium 3.6 Chloride 98 Carbon Dioxide 27 BUN 62 H Creatinine 2.70 H Glucose 135 H Calcium 9.0 Liver Function 04/05/25 Range/Units 06:07 Total Bilirubin 0.8 (0.2-1.0) mg/dl AST 117 H (13-39) U/L ALT 314 H (7-52) U/L Alkaline Phosphatase 69 (34-104) U/L Albumin 3.0 L (3.4-5.0) gm/dl Medications Administered Current Inpatient Medications Acetaminophen (Acetaminophen 325 Mg Tab) 650 mg PO Q4H PRN PRN Reason: Pain or Fever Stop: 05/02/25 18:23 Al Hydrox/Mg Hydrox/Simethicone (Aluminum/Magnesium Susp 30 Ml Udc) 15 ml PO Q4H PRN PRN Reason: Dyspepsia Stop: 05/02/25 18:23 Aspirin (Aspirin 81 Mg Ectab) 81 mg PO QAM [facility]EDRO Stop: 05/03/25 08:59 Last Admin: 04/05/25 07:58 Dose: 81 mg Atorvastatin Calcium (Atorvastatin 40 Mg Tab) 80 mg PO QAM [facility] Stop: 05/02/25 15:59 Last Admin: 04/05/25 07:58 Dose: 80 mg Dextrose (Dextrose 50% 50 Ml Syringe) 25 - 50 ml IV UD PRN; Protocol PRN Reason: Hypoglycemia Protocol Stop: 05/02/25 18:23 Doxycycline Hyclate (Doxycycline Hyclate 100 Mg Cap) 100 mg PO Q12H PEDRO Stop: 04/08/25 04:59 Last Admin: 04/05/25 06:02 Dose: 100 mg Furosemide (Furosemide 40 Mg/4 Ml Vial) 100 mg IV [id number] [facility]EDRO Stop: 05/04/25 06:59 Last Admin: 04/05/25 07:59 Dose: 100 mg Glucagon (Glucagon For Inj 1 Mg Vial) 1 mg SQ UD PRN; Protocol PRN Reason: Hypoglycemia Protocol Stop: 05/02/25 18:23 Glucose (Glucose 40% Gel 15 Gm Tube) 15 - 30 gm PO UD PRN; Protocol PRN Reason: Hypoglycemia Protocol Stop: 05/02/25 18:23 Glucose (Glucose 10 Tab/Tube) 4 - 8 tab PO UD PRN; Protocol PRN Reason: Hypoglycemia Protocol Stop: 05/02/25 18:23 Heparin Sodium/Dextrose (Heparin 97420 Unit/500 Ml D5w) 25,000 units in 500 mls @ 35 mls/hr IV .[id number] PEDRO; Protocol Stop: 05/02/25 19:59 Last Admin: 04/05/25 06:17 Dose: 1,750 units/hr, 35 mls/hr Ceftriaxone Sodium (Rocephin) 2,000 mg in 50 mls @ 100 mls/hr IV Q24H PEDRO Stop: 04/08/25 15:59 Last Infusion: 04/04/25 17:48 Dose: Infused Insulin Aspart (Insulin Aspart Per Unit Charge) 0 units SC ACHS PEDRO Stop: 05/02/25 20:59 Last Admin: 04/05/25 11:40 Dose: 6 units Magnesium Hydroxide (Magnesium Hydroxide Susp 30 Ml Udc) 30 ml PO Q12H PRN PRN Reason: Constipation Stop: 05/02/25 18:23 Magnesium Oxide (Magnesium Oxide 400 Mg Tab) 400 mg PO DAILY PEDRO Stop: 05/03/25 08:59 Last Admin: 04/05/25 07:58 Dose: 400 mg Metolazone (Metolazone 2.5 Mg Tablet) 2.5 mg PO QAM [facility] Stop: 05/04/25 08:59 Last Admin: 04/05/25 07:59 Dose: 2.5 mg Metoprolol Succinate (Metoprolol Succ 25mg Ext Rel Tab) 25 mg PO BID PEDRO Stop: 05/03/25 20:59 Last Admin: 04/05/25 07:59 Dose: 25 mg Miscellaneous (Carbohydrates For Hypoglycemia ) 15 - 30 gm PO UD PRN PRN Reason: Hypoglycemia Protocol Stop: 05/02/25 18:23 Ondansetron HCl (Ondansetron Inj 2 Mg/Ml 2 Ml Vial) 4 mg IV Q6H PRN PRN Reason: Nausea Stop: 05/02/25 18:23 Polyethylene Glycol (Polyethylene (Miralax) 17 Gm Pack) 17 gm PO DAILY PRN PRN Reason: Constipation Stop: 05/02/25 18:23
--- NOTE | 2025-04-05 12:28 | Nephrology Progress Note ---
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 His base line weight is around 250 pounds, he is up by around 30 pounds. Admission serum creatinine was 2.8 which had peaked to 3.09 and is now improving. - Continue on Lasix 100 mg twice daily, w/2.5 mg of metolazone , UOP has improved and his symptoms have improved significantly - He needs accurate input and output and daily standing weights to guide his diuretic therapy - continue on 1.5 L fluid restriction and less than 2 g sodium diet. - Daily BMP continue to hold RADHIKA and Jardiance -replace electrolytes to keep potassium more than 4 and magnesium more than 2 -Renally dose antibiotics his hypertension was fluid driven, thsi has improved w/ improved fluid status (2) Heart failure, systolic, with acute decompensation: Plan: diuretics as above - cardiology on board (3) Diabetes mellitus, type II: (4) Cellulitis: Admission and Anticipated Discharge Date Admission Date: April 02, 2025 Subjective He has been stable and feeling and feeling much better today Denying any shortness of breath at rest, no chest pain and/or palpitation Has been making out enough urine Review of Systems 2 Review of Systems: He feels a little better since admission, breathing vastly improved Denies any chest pain and/or palpitation, denies any nausea no vomiting and does not have any fever and/or chills Physical Exam 2 Physical Exam: Sitting on a chair, in acute distress + respiratory distress (Minimal distress at rest) Auscultation: + diminished lung sounds and + crackles (Bibasilar crackles) Extremities: + edema (1-2+ edema bilaterally) Bilateral lower legs are bandaged due to wounds + abdomen distended and normal bowel sounds Percussion/Palpation: abdomen soft; abdomen nontender Results & Data Vital Signs (Past 12 Hours) Vital Signs Temp Pulse Resp BP BP Pulse Ox O2 Del Method 04/05/25 11:30 36.9 C 89 20 126/98 90 Room Air 04/05/25 08:30 37.0 C 87 19 128/82 91 Room Air 04/05/25 04:51 36.6 C 79 16 119/88 89 L Room Air Laboratory Results 04/04/25 06:26 04/05/25 06:07
[2025-04-06 03:56] LABS: Alanine Aminotransferase 278.0 U/L (7-52); Alkaline Phosphatase 70.0 U/L (34-104); Anion Gap 11.0 (3-11); Blood Urea Nitrogen 67.0 mg/dl (6-23); Calcium 9.0 mg/dl (8.6-10.3); Carbon Dioxide 28.0 mmol/L (21-32); Chloride 95.0 mmol/L (98-107); Creatinine Clr Calc Pharmacy 42.6 ml/min; Glucose 139.0 mg/dl (70-99(Fasting)); Magnesium 2.0 mg/dl (1.7-2.4); Potassium 3.4 mmol/L (3.5-5.1); Sodium 134.0 mmol/L (136-145)
[2025-04-06 04:02] LABS: ANTI-Xa, UFH(UnfractionatedHep 0.31 IU/ml (0.3-0.7)
[2025-04-06 04:04] LABS: Albumin Globulin Ratio 0.9 (0.9-2); Bilirubin,Total 0.8 mg/dl (0.2-1.0); Globulin 3.4 gm/dl (2.5-4.0); Total Protein 6.5 gm/dl (6.0-8.3)
[2025-04-06 04:11] LABS: Hematocrit (blood only) 43.3 % (42.0-52.0); Hemoglobin 14.4 g/dl (14.0-18.0); Mean Corpuscular Hemoglobin 28.4 pg (25.0-34.0); Mean Corpuscular Volume 85.9 fL (80.0-100.0); Platelet Count 239 K/uL (130-400); RDW Standard Deviation 47.5 fL (36.4-46.3); Red Blood Count 5.07 M/uL (4.70-6.10); White Blood Count 14.39 K/ul (4.8-10.8)
[2025-04-06 04:15] LABS: Immature Granulocytes # (auto) 0.09 K/uL (0.01-0.20); Immature Granulocytes % (auto) 0.6 %
[2025-04-06] MEDS: POTASSIUM CHLORIDE CRTAB 20 MEQ TABCR PO STA (07:58)
[2025-04-06] MEDS ORDERED: POTASSIUM CHLORIDE CRTAB 20 MEQ TABCR PO STA (08:03)
--- NOTE | 2025-04-06 08:56 | Nephrology Progress Note ---
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 He also ahs cellulitic looking lower limbs which are contributing towards the MELISSA>> He margaux has ATN. also h/o UC. His base line weight is around 250 pounds, he is up by around 30 pounds at admissoin. Admission serum creatinine was 2.8 which had peaked at 3.09 and is now improving. creat 2.6 today - Continue on Lasix 100 mg IV twice daily, w/ daily 2.5 mg of metolazone - He needs accurate input and output and daily standing weights to guide his diuretic therapy - continue on 1.5 L fluid restriction and less than 2 g sodium diet. - daily STANDING weight pls >> did review w/ RN who will pass along - Daily BMP continue to hold RADHIKA and Jardiance -replace electrolytes to keep potassium more than 4 and magnesium more than 2 >> had K po 40 mEq today -Renally dose antibiotics (2) Heart failure, systolic, with acute decompensation: Plan: LVEF 25-30% diuretics as above - cardiology on board; recommends lifevest at d/c -to taper off amio gtt later today (3) Cellulitis: Plan: on doxy; ? any relation to UC dx? Admission and Anticipated Discharge Date Admission Date: April 02, 2025 Subjective no interval events clinically. states breathing improved, getting up to commode to void w/o worsening exertional sob; no chest pain/palps; feels edema better Review of Systems 2 Review of Systems: All systems reviewed & are unremarkable except as noted in Subjective Physical Exam 2 Constitutional: well developed and well nourished Eyes: EOM intact bilaterally ENMT: Mouth: + dry oral mucous membranes Respiratory: normal respiratory effort Auscultation: + diminished lung sounds Gastrointestinal (Abdomen): Inspection/Auscultation: + abdomen distended and normal bowel sounds Percussion/Palpation: abdomen soft and + ascites; abdomen nontender Musculoskeletal: Extremities: strength 5/5 throughout Skin: no rashes, warm and dry Neurologic: fish, fluent speech, no tremor Results & Data Vital Signs (Past 12 Hours) Vital Signs Temp Pulse Pulse Resp BP BP Pulse Ox 04/06/25 08:26 36.8 C 63 23 107/93 91 04/06/25 03:09 36.4 C L 98 H 20 101/65 92 04/06/25 00:00 115/81 04/05/25 23:07 36.5 C 80 20 121/85 90 04/05/25 21:55 47 L 04/05/25 21:22 O2 Del Method 04/06/25 08:26 Room Air 04/06/25 03:09 Room Air 04/06/25 00:00 04/05/25 23:07 Room Air 04/05/25 21:55 04/05/25 21:22 Room Air Laboratory Results 04/06/25 03:17 04/06/25 03:17
--- NOTE | 2025-04-06 09:02 | XRay Report ---
EXAM: XR chest 1V portable CLINICAL HISTORY: CHF - UPRIGHT TECHNIQUE: An X-ray image of the chest is obtained in AP projection. COMPARISON: 04/02/2025. FINDINGS: Pulmonary Parenchyma: Unchanged homogeneous opacification of left lower zone and subsegmental atelectasis with haziness in right lower zone. Unchanged obscured bilateral CP angles likely pleural effusion. Heart and Mediastinum: Cardiomegaly. No mediastinal widening or masses. No hilar or mediastinal lymphadenopathy. Bony Thorax: Bony thorax appears intact without fractures or deformities. Soft Tissues: Soft tissues overlying the chest wall are unremarkable. IMPRESSION: 1. Unchanged homogeneous opacification of left lower zone and subsegmental atelectasis with haziness in right lower zone. 2. Unchanged obscured bilateral CP angles likely pleural effusion. 3. Cardiomegaly. 4. No significant interval changes. Electronically signed by Derrick Cobb 04-06-2025 09:01 AM
[2025-04-06] MEDS ORDERED: AMIODARONE IV BOLUS & DRIP IV STA (09:46)
[2025-04-06] MEDS ORDERED: STAT IV Infusion **Titration per Protocol STA (09:46)
[2025-04-06] MEDS ORDERED: 0.2 MICRON FILTER SET 1 EACH IV STA (09:46)
[2025-04-06] MEDS: AMIODARONE / D5W 150 MG/100 ML BAG IV STA (10:27)
[2025-04-06] MEDS: AMIODARONE / D5W 360 MG/200 ML BAG IV ONE (10:51)
--- NOTE | 2025-04-06 11:38 | Cardiology Progress Note ---
Date of Service April 06, 2025 Assessment & Plan (1) Heart failure, systolic, with acute decompensation: (2) Nonischemic cardiomyopathy: (3) Elevated troponin: (4) Uncontrolled hypertension: (5) PAF (paroxysmal atrial fibrillation): (6) Acute kidney injury: (7) Dyslipidemia, goal LDL below 70: Plan Patient is 59 year old male admitted wiht signs/symptoms of acute HFrEF. History of non ischemic cardiompyathy and patient lost insurance and stopped all outpatient meds. NYHA Class III+. LVEF 25 to 30%. Findings of PAF also present on admission Acute HFrEF - history of NICM with LVEF 25-30% (patient reports prior "angiogram was normal" -Continue IV lasix today -continue metolazone -replace electrolytes. +Potassium supplemented this morning -Monitor I+Os -Daily weight with standing scale -would benefit from external defib vest on discharge - Discussed with nurse and will discuss with case management. He currently does not have insurance. -continue metoprolol succinate -Not on RADHIKA/ARB due to MELISSA. Meds limited due to hypotension -continue ASA and statin PAF -recurrent afib last evening around 23:00 -rates elevated -continue metoprolol succinate 25 mg BID -Initially started IV amiodarone, however elevated LFT's noted and med discontinued stopped. Liver US with hepatomegaly and possible gallbladder wall thickening. -Unable to use other antiarrhythmics due to MELISSA/CKD and reduced LVEF. -increase metoprolol for now to 50 mg in AM and 25 mg in PM. -He has been on IV heparin due to PAF and BL LE DVT. Will need case management to assist with cost of anticoagulation as an outpatient - Eliquis vs coumadin? Morbid obesity -recommend BETTY evaluation as well. Case discussed with Dr. Brandt I spent a total of 50 minutes on the date of service in preparation, delivery, and documentation of the care provided to this patient, excluding any time spent in the performance of separately billed services. Vashti Daigle PA-C Department of Cardiology, [facility] This chart was completed in part utilizing Speech Voice Recognition Software. Grammatical errors, random word insertions, pronoun errors, and incomplete sentences are an occasional consequence of this system due to software limitations, ambient noise, and hardware issues. Any formal questions or concerns about the content, text, or information contained within the body of this dictation should be directly addressed to the provider for clarification. Admission and Anticipated Discharge Date Admission Date: April 02, 2025 Supervising Physician Co-Signing Physician Notes I have personally performed a history and physical examination on the patient. I have reviewed the advance practitioner's documentation, and I agree with, and take responsibility for the plan of care. 59-year-old male admitted with acute heart failure with reduced ejection fraction and history of nonischemic cardiomyopathy. Echocardiogram de monstrating severe global hypokinesis with a left ventricular ejection fraction of 25 to 30% on admission. Mild mixed valvular regurgitation noted. Paroxysmal atrial flutter with rapid ventricular response on telemetry. Mildly elevated hepatic enzymes likely due to congestion/CHF. Will resume IV amiodarone. Continue IV anticoagulation. Titration of GDMT limited by renal insufficiency. Increase dose of Toprol-XL today. Repeat basic metabolic panel and hepatic enzymes in AM. Continue IV Lasix plus metolazone. Monitor fluid balance, daily weight, GFR, and electrolytes. Case management needed for assessment of oral anticoagulation cost and placement of LifeVest due to lack of insurance coverage. Cristóbal Brandt DO, [facility] I spent a total of 35 minutes on the date of service in preparation, delivery, and documentation of the care provided to this patient, excluding any time spent in the performance of separately billed services. Subjective Patient resting at edge of bed this morning. reports feeling "good". Improved from admission. Frequent urination/diuresis reported by the patient. Denies chest pain. SOB still present with ambulation in the room. No orthopnea. Ongoing cough also noted. Mild conversational dyspnea noted. Patient reverted to AFib late last night. Reports mild palpitations and dyspnea this morning. +Co nversational dyspnea also noted. Review of Systems Review of Systems: All systems reviewed & are unremarkable except as noted in HPI & below Physical Exam Physical Exam: General: A&Ox3. NAD. Obese HENT: Normocephalic. Atraumatic. Eyes: PER. Conjunctiva pink, sclera clear. Neck: JVD. HJR. Heart: S1S2. Systolic murmur at the LLSB. No rub. Lungs: decreased BS at bases. No wheezing. No rales Abdomen: +BS. Somewhat firm. Nontender. No masses or organomegaly. Extremities: 1-2+ edema above dressings. B/L wounds wrapped Limited neurological examination is without focal deficits. Results & Data Vital Signs (Past 12 Hours) Vital Signs Temp Pulse Resp BP BP Pulse Ox O2 Del Method 04/06/25 08:26 36.8 C 63 23 107/93 91 Room Air 04/06/25 03:09 36.4 C L 98 H 20 101/65 92 Room Air 04/06/25 00:00 115/81 Laboratory Results Cardiac Enzymes 04/06/25 Range/Units 03:17 AST 115 H (13-39) U/L CBC 04/06/25 Range/Units 03:17 WBC 14.39 H (4.8-10.8) K/ul RBC 5.07 (4.70-6.10) M/uL Hgb 14.4 (14.0-18.0) g/dl Hct 43.3 (42.0-52.0) % Plt Count 239 (130-400) K/uL Neut # (Auto) 11.57 H (1.40-6.50) K/uL Lymph # (Auto) 0.89 L (1.20-3.40) K/uL [place] # (Auto) 1.77 H (0.11-0.59) K/uL Eos # (Auto) 0.05 (0.00-0.50) K/uL Baso # (Auto) 0.02 (0.00-0.20) K/uL Comprehensive Metabolic Panel 04/06/25 Range/Units 03:17 Sodium 134 L (136-145) mmol/L Potassium 3.4 L (3.5-5.1) mmol/L Chloride 95 L (98-107) mmol/L Carbon Dioxide 28 (21-32) mmol/L BUN 67 H (6-23) mg/dl Creatinine 2.56 H (0.6-1.4) mg/dl Glucose 139 H (70-99(Fasting)) mg/dl Calcium 9.0 (8.6-10.3) mg/dl AST 115 H (13-39) U/L ALT 278 H (7-52) U/L Alkaline Phosphatase 70 (34-104) U/L Total Protein 6.5 (6.0-8.3) gm/dl Albumin 3.1 L (3.4-5.0) gm/dl Intake and Output 04/05/25 04/06/25 04/06/25 22:59 06:59 14:59 Intake Total 802 / 2293.083 611.083 / 2293.083 238.25 / 238.25 Output Total 350 / 2150 400 / 400 Balance 452 / 143.083 611.083 / 143.083 -161.75 / -161.75 Intake: IV 550 / 911.083 361.083 / 911.083 238.25 / 238.25 Amiodarone / D5w 150 mg In 100 100 / 100 ml @ 600 mls/hr IV NOW STA Rx#: [id number] Heparin 15835 Unit/500 ml D5w 500 / 861.083 361.083 / 861.083 138.25 / 138.25 25,000 units In 500 ml @ 1,750 UNITS/HR 35 mls/hr IV .[id number] [facility] Rx#:[id number] cefTRIAXone SODIUM 2,000 mg In 50 / 50 50 ml @ 100 mls/hr IV Q24H [facility] Rx#:[id number] Oral 252 / 1382 250 / 1382 Output: Urine 350 / 2150 400 / 400 Other: # Unmeasured Voids 8 1 Weight 108.4 kg Weight Measurement Method Built in [facility] Diagnostic Findings Telemetry reviewed: patient converted to afib late last night around 23:00. Currently afib RVR in the 110-120's. EKG last night reviewed: Afib RVR T wave abnormality in anterolateral leads Medications Administered Current Inpatient Medications Acetaminophen (Acetaminophen 325 Mg Tab) 650 mg PO Q4H PRN PRN Reason: Pain or Fever Stop: 05/02/25 18:23 Al Hydrox/Mg Hydrox/Simethicone (Aluminum/Magnesium Susp 30 Ml Udc) 15 ml PO Q4H PRN PRN Reason: Dyspepsia Stop: 05/02/25 18:23 Aspirin (Aspirin 81 Mg Ectab) 81 mg PO QAM [facility] Stop: 05/03/25 08:59 Last Admin: 04/06/25 08:00 Dose: 81 mg Atorvastatin Calcium (Atorvastatin 40 Mg Tab) 80 mg PO QAM [facility] Stop: 05/02/25 15:59 Last Admin: 04/06/25 08:00 Dose: 80 mg Dextrose (Dextrose 50% 50 Ml Syringe) 25 - 50 ml IV UD PRN; Protocol PRN Reason: Hypoglycemia Protocol Stop: 05/02/25 18:23 Doxycycline Hyclate (Doxycycline Hyclate 100 Mg Cap) 100 mg PO Q12H PEDRO Stop: 04/08/25 04:59 Last Admin: 04/06/25 06:26 Dose: 100 mg Furosemide (Furosemide 40 Mg/4 Ml Vial) 100 mg IV [id number] PEDRO Stop: 05/04/25 06:59 Last Admin: 04/06/25 06:26 Dose: 100 mg Glucagon (Glucagon For Inj 1 Mg Vial) 1 mg SQ UD PRN; Protocol PRN Reason: Hypoglycemia Protocol Stop: 05/02/25 18:23 Glucose (Glucose 40% Gel 15 Gm Tube) 15 - 30 gm PO UD PRN; Protocol PRN Reason: Hypoglycemia Protocol Stop: 05/02/25 18:23 Glucose (Glucose 10 Tab/Tube) 4 - 8 tab PO UD PRN; Protocol PRN Reason: Hypoglycemia Protocol Stop: 05/02/25 18:23 Heparin Sodium/Dextrose (Heparin 97265 Unit/500 Ml D5w) 25,000 units in 500 mls @ 35 mls/hr IV .[id number] PEDRO; Protocol Stop: 05/02/25 19:59 Last Admin: 04/06/25 10:55 Dose: 1,750 units/hr, 35 mls/hr Ceftriaxone Sodium (Rocephin) 2,000 mg in 50 mls @ 100 mls/hr IV Q24H [facility] Stop: 04/08/25 15:59 Last Infusion: 04/05/25 17:36 Dose: Infused Amiodarone HCl/Dextrose (Nexterone / D5w) 360 mg in 200 mls @ 33.333 mls/hr IV ONE ONE Stop: 04/06/25 15:55 Last Admin: 04/06/25 10:51 Dose: 1 mg/min, 33.3 mls/hr Amiodarone HCl/Dextrose (Nexterone / D5w) 360 mg in 200 mls @ 16.667 mls/hr IV .Q12H [facility] Stop: 05/06/25 15:59 Insulin Aspart (Insulin Aspart Per Unit Charge) 0 units SC ACHS PEDRO Stop: 05/02/25 20:59 Last Admin: 04/06/25 07:57 Dose: 6 units Magnesium Hydroxide (Magnesium Hydroxide Susp 30 Ml Udc) 30 ml PO Q12H PRN PRN Reason: Constipation Stop: 05/02/25 18:23 Magnesium Oxide (Magnesium Oxide 400 Mg Tab) 400 mg PO DAILY PEDRO Stop: 05/03/25 08:59 Last Admin: 04/06/25 08:06 Dose: 400 mg Metolazone (Metolazone 2.5 Mg Tablet) 2.5 mg PO QAM PEDRO Stop: 05/04/25 08:59 Last Admin: 04/06/25 08:01 Dose: 2.5 mg Metoprolol Succinate (Metoprolol Succ 25mg Ext Rel Tab) 25 mg PO BID PEDRO Stop: 05/03/25 20:59 Last Admin: 04/06/25 08:01 Dose: 25 mg Miscellaneous (Carbohydrates For Hypoglycemia ) 15 - 30 gm PO UD PRN PRN Reason: Hypoglycemia Protocol Stop: 05/02/25 18:23 Ondansetron HCl (Ondansetron Inj 2 Mg/Ml 2 Ml Vial) 4 mg IV Q6H PRN PRN Reason: Nausea Stop: 05/02/25 18:23 Polyethylene Glycol (Polyethylene (Miralax) 17 Gm Pack) 17 gm PO DAILY PRN PRN Reason: Constipation Stop: 05/02/25 18:23 PG Care Time/CCT Total # of Minutes Spent Total Time Spent with Patient: Total time spent is greater than 50% in coordination of care (as documented) at patient's floor/unit and/or counseling patient: 50 minutes Coding Level of Care Code 79135 SUB INP/OBS CARE 3/50MIN Diagnoses Heart failure, systolic, with acute decompensation I50.23 Nonischemic cardiomyopathy I42.8 Elevated troponin R79.89 Uncontrolled hypertension I10 PAF (paroxysmal atrial fibrillation) I48.0 Acute kidney injury N17.9 Dyslipidemia, goal LDL below 70 E78.5
[2025-04-06] MEDS: METOPROLOL SUCC 25MG EXT REL TAB PO ONE (12:12)
--- NOTE | 2025-04-06 13:23 | Ultrasound Report ---
US effusion-chest/mediastinum HISTORY: 59 years-old Male Pleural effusion COMPARISON: Chest radiograph of same day TECHNIQUE: Sonographic images of the chest were obtained assessing grayscale appearance FINDINGS: Small left pleural effusion is noted, volume of approximately 200 mL. Trace right pleural effusion. IMPRESSION: Left pleural effusion with volume of approximately 200 mL. ACT 112: Negative or not required by law. The above report was generated using voice recognition software. It may contain grammatical, syntax o r spelling errors. Electronically signed by: Adama Vergara M.D. 04/06/2025 1:22 PM
--- NOTE | 2025-04-06 13:38 | Hospitalist Progress Note ---
Date of Service April 06, 2025 Assessment & Plan (1) CHF exacerbation: Plan: Patient is a 59 year old M with a past medical history of chronic systolic heart failure, diabetes type II, hypertension, CKD stage III, hyperlipidemia, obesity, ulcerative colitis presenting with shortness of breath, edema, cough. Symptoms began about a week ago with nonproductive cough and lower leg edema, progressed to shortness of breath about 3 days ago with exertion. Patient relocated from [place] about 6 months ago and was taking all his medications until about 30 days ago when he had no refills remaining. Since then he's been trying to establish insurance and outpatient providers. Reportedly, he was diagnosed with heart failure about 15 months ago when hospitalized in [place] with similar presentation. He experienced weight gain, swelling to the legs and shortness of breath at that time, then lost ~50 pounds following diuretics while inpatient. Previous medications included metoprolol, bumetanide, eplerenone, atorvastatin, ACEi and aspirin. #Acute on chronic CHF exacerbation #Acute HFrEF-EF 25-30% * Admit to Telemetry * Nonadherence to meds with acute exacerbation of CHF->BNP 1581 * Elevated Trop 155, then 162; NO Chest pain. Will trend Q6H x 3 * Chest Xray showing cardiomegaly with mild pulmonary vascular congestion; bibasilar airspace consolidation with nodular configuration to R lung and possible small pleural effusions-> will obtain CT Chest for r/o pericardial effusion Home diuretics is on hold and he is getting Lasix 60 mg twice daily Clinically a little better and will continue with the current diuretics Echo of the heart showed LV systolic function is severely reduced, LV ejection fraction is 25 to 30%, there is severe global hypokinesis of the left ventricle, left atrium is moderately dilated, mild aortic regurgitation, mild pulmonic valve regurgitation, mild mitral regurgitation and there is mild tricuspid regurgitation Appreciate cardiology input and recommendation Mildly elevated troponin is due to stress and the trending his downloads and doubt any ACS Clinically much better and has been diuresing enough Has been getting furosemide 100 mg IV twice daily and metolazone 2.5 mg daily May need thoracentesis if the effusion does not get any better with subsequent days Clinically much better and so far negative balance of more than 1 L Will continue current diuretic doses and monitor electrolytes He continues to improve with more diuresis and decrease in swelling of the legs Chest x-ray showed unchanged homogeneous opacification left lower zone and subsegmental atelectasis and ultrasound showed only 200 mL of effusion on the left side will continue current management and the patient may need external defibrillator vest on discharge and also will need appropriate anticoagulation for DVT and paroxysmal atrial fibrillation Acute DVT No home anticoagulation; Venous Doppler for r/o DVT showed occlusive thrombus within the popliteal veins bilaterally--> Heparin drip initiated Will need oral anticoagulation on discharge Will decide on oral anticoagulation #Hypertension Hypertensive, tachypneic, tachycardiac in ED Blood pressure remains elevated this morning at 166/100 Has been getting metoprolol and will monitor blood pressure Blood pressure remains elevated at 153/125 and will observe for now with current medications Blood pressure remains stable #Suspected CAP * +cough, nonproductive, short of breath, stable O2 sats at 93% RA * Elevated WBC 17.7K with mildly elevated Procal 0.52 and Lactate 3.1-> Blood cultures pending; Rocephin and Doxy given in ED for suspected CAP * Will continue with Rocephin and Doxy while inpatient * Repeat lactate came back to be elevated at 3.7 and will continue current management Will continue with intravenous ceftriaxone and doxycycline Blood cultures have been negative and urine culture is growing 3 types of orga nisms Will repeat chest x-ray tomorrow- unchanged homogeneous opacities left lower zone and subsegmental atelectasis Will finish the course of antibiotic for a total of 7 to 10 days #Cellulitis * BLE edema with well-defined erythematic borders to shins, + ulcers with active drainage--> wound culture pending * MRSA swab -negative * Empiric Ceftriaxone and Doxy coverage; * Await wound cx results and wound care consult The picture of the wound reviewed #CKD Stage III * BP initially elevated 156/100; received metoprolol in ED and home metoprolol 25 mg resumed; BP now 108/92 * Creatinine 2.8, BUN 44 * Hold home ACEi * Hold nephro toxic agents if possible; Trend renal functioning with AM labs Appreciate nephrology input and recommendation Creatinine looking better even with higher doses of intravenous Lasix and will monitor kidney function Creatinine remains stable at 2.70 #Transaminitis * Elevated LFTs-> Bili 1.7, AST 110, ALT 100; suspect hepatic congestion * No abdominal symptoms * Obtain Liver Ultrasound for r/o alternative etiology * Ultrasound showed hepatomegaly and thickening of the gallbladder wall without any cholecystitis or cholelithiasis Increasing LFTs could be secondary to fatty liver disease/mild hepatic congestion from CHF Will monitor LFTs and doubt any hepatitis-Will check for hepatitis panel and still seems to be fatty liver/congestive changes from CHF Hepatitis B&C antigens are negative and LFTs are getting a little better Obesity Will need OP Sleep study #Hyperlipidemia * Atorvastatin on high dose at home- resumed * will check Lipids with AM labs #Diabetes Type II, non-insulin dependent * A1C 6.8% * Hold home metformin and Jardiance * SSI while inpatient; Goal BSG 110-140, adjust as needed * Diabetic teaching at discharge needed DVT Ppx: Heparin Code status: Full PCP: No PCP Dispo: Admit to Tele for further management; Discharge planning- CM to establish PCP and Cardiology follow-up at d/c (2) Cellulitis: (3) Hypertension: (4) CKD (chronic kidney disease), stage III: (5) Transaminitis: (6) Hyperlipidemia: (7) Diabetes mellitus, type II: Admission and Anticipated Discharge Date Admission Date: April 02, 2025 Subjective 04/03/2025 Patient was seen and examined in telemetry unit He has been complaining of bilateral leg swelling with cellulitis, weight gain and shortness of breath for the last few days to few weeks He feels a little better since admission but he still remains symptomatic Denies any chest pain and/or palpitation, denies any nausea no vomiting and does not have any fever and/or chills 04/04/2025 The patient was seen and examined in telemetry unit He has been feeling much better today with decreasing shortness of breath and leg swelling Denies any chest pain or palpitation 04/05/2025 The patient was seen and examined in telemetry unit He has been stable and feeling and feeling much better today Denying any shortness of breath at rest, no chest pain and/or palpitation Has been making out enough urine 04/06/2025 The patient was seen and examined in the telemetry unit He has been feeling much better with decreasing shortness of breath and also decreasing swelling of the legs Denies any palpitation, any chest pain No abdominal pain/nausea and/or vomiting Review of Systems Review of Systems: All systems reviewed and are unremarkable except as noted below Physical Exam Physical Exam: sitting at the edge of the bed without any apparent distress Constitutional: well developed, well nourished, + ill appearing and + morbidly obese Eyes: PERRL, conjunctivae normal, anicteric sclerae ENMT: external ear and nose normal, oropharynx normal Neck: trachea midline, no thyromegaly Respiratory: + respiratory distress (Minimal distress at rest) Auscultation: + diminished lung sounds and + crackles (Bibasilar crackles) Cardiovascular: Rate/Rhythm: regular rate and regular rhythm; not tachycardic Heart Sounds: normal S1 and normal S2; no murmur Extremities: + edema ( 1+ edema bilaterally) Gastrointestinal (Abdomen): Inspection/Auscultation: + abdomen distended and normal bowel sounds Percussion/Palpation: abdomen soft; abdomen nontender Neurologic: normal touch/pain/proprioception and moves all extremities; no focal motor deficits Lymphatic: no cervical or axillary lymphadenopathy Results & Data Results & Data Vital Signs (Past 12 Hours) Vital Signs Temp Pulse Pulse Resp BP BP Pulse Ox 04/06/25 11:44 36.2 C L 99 H 23 110/88 91 04/06/25 08:26 36.8 C 63 23 107/93 91 04/06/25 08:00 107 H 04/06/25 03:09 36.4 C L 98 H 20 101/65 92 O2 Del Method 04/06/25 11:44 Room Air 04/06/25 08:26 Room Air 04/06/25 08:00 04/06/25 03:09 Room Air Laboratory Results Short CBC 04/06/25 Range/Units 03:17 WBC 14.39 H (4.8-10.8) K/ul Hgb 14.4 (14.0-18.0) g/dl Hct 43.3 (42.0-52.0) % Plt Count 239 (130-400) K/uL BMP 04/06/25 03:17 Sodium 134 L Potassium 3.4 L Chloride 95 L Carbon Dioxide 28 BUN 67 H Creatinine 2.56 H Glucose 139 H Calcium 9.0 Liver Function 04/06/25 Range/Units 03:17 Total Bilirubin 0.8 (0.2-1.0) mg/dl AST 115 H (13-39) U/L ALT 278 H (7-52) U/L Alkaline Phosphatase 70 (34-104) U/L Albumin 3.1 L (3.4-5.0) gm/dl Medications Administered Current Inpatient Medications Acetaminophen (Acetaminophen 325 Mg Tab) 650 mg PO Q4H PRN PRN Reason: Pain or Fever Stop: 05/02/25 18:23 Al Hydrox/Mg Hydrox/Simethicone (Aluminum/Magnesium Susp 30 Ml Udc) 15 ml PO Q4H PRN PRN Reason: Dyspepsia Stop: 05/02/25 18:23 Aspirin (Aspirin 81 Mg Ectab) 81 mg PO QAM [facility] Stop: 05/03/25 08:59 Last Admin: 04/06/25 08:00 Dose: 81 mg Atorvastatin Calcium (Atorvastatin 40 Mg Tab) 80 mg PO QAM [facility] Stop: 05/02/25 15:59 Last Admin: 04/06/25 08:00 Dose: 80 mg Dextrose (Dextrose 50% 50 Ml Syringe) 25 - 50 ml IV UD PRN; Protocol PRN Reason: Hypoglycemia Protocol Stop: 05/02/25 18:23 Doxycycline Hyclate (Doxycycline Hyclate 100 Mg Cap) 100 mg PO Q12H [facility] Stop: 04/08/25 04:59 Last Admin: 04/06/25 06:26 Dose: 100 mg Furosemide (Furosemide 40 Mg/4 Ml Vial) 100 mg IV [id number] [facility] Stop: 05/04/25 06:59 Last Admin: 04/06/25 06:26 Dose: 100 mg Glucagon (Glucagon For Inj 1 Mg Vial) 1 mg SQ UD PRN; Protocol PRN Reason: Hypoglycemia Protocol Stop: 05/02/25 18:23 Glucose (Glucose 40% Gel 15 Gm Tube) 15 - 30 gm PO UD PRN; Protocol PRN Reason: Hypoglycemia Protocol Stop: 05/02/25 18:23 Glucose (Glucose 10 Tab/Tube) 4 - 8 tab PO UD PRN; Protocol PRN Reason: Hypoglycemia Protocol Stop: 05/02/25 18:23 Heparin Sodium/Dextrose (Heparin 46752 Unit/500 Ml D5w) 25,000 units in 500 mls @ 35 mls/hr IV .[id number] [facility]; Protocol Stop: 05/02/25 19:59 Last Admin: 04/06/25 10:55 Dose: 1,750 units/hr, 35 mls/hr Ceftriaxone Sodium (Rocephin) 2,000 mg in 50 mls @ 100 mls/hr IV Q24H [facility] Stop: 04/08/25 15:59 Last Infusion: 04/05/25 17:36 Dose: Infused Amiodarone HCl/Dextrose (Nexterone / D5w) 360 mg in 200 mls @ 33.333 mls/hr IV ONE ONE Stop: 04/06/25 15:55 Last Infusion: 04/06/25 12:44 Dose: 1 mg/min, 33.3 mls/hr Amiodarone HCl/Dextrose (Nexterone / D5w) 360 mg in 200 mls @ 16.667 mls/hr IV .Q12H [facility] Stop: 05/06/25 15:59 Insulin Aspart (Insulin Aspart Per Unit Charge) 0 units SC ACHS [facility] Stop: 05/02/25 20:59 Last Admin: 04/06/25 12:11 Dose: 8 units Magnesium Hydroxide (Magnesium Hydroxide Susp 30 Ml Udc) 30 ml PO Q12H PRN PRN Reason: Constipation Stop: 05/02/25 18:23 Magnesium Oxide (Magnesium Oxide 400 Mg Tab) 400 mg PO DAILY [facility] Stop: 05/03/25 08:59 Last Admin: 04/06/25 08:06 Dose: 400 mg Metolazone (Metolazone 2.5 Mg Tablet) 2.5 mg PO QAM [facility] Stop: 05/04/25 08:59 Last Admin: 04/06/25 08:01 Dose: 2.5 mg Metoprolol Succinate (Metoprolol Succ 25mg Ext Rel Tab) 25 mg PO QPM [facility] Stop: 05/06/25 20:59 Metoprolol Succinate (Metoprolol Succ 50mg Ext Rel Tab) 50 mg PO QAM [facility] Stop: 05/07/25 08:59 Miscellaneous (Carbohydrates For Hypoglycemia ) 15 - 30 gm PO UD PRN PRN Reason: Hypoglycemia Protocol Stop: 05/02/25 18:23 Ondansetron HCl (Ondansetron Inj 2 Mg/Ml 2 Ml Vial) 4 mg IV Q6H PRN PRN Reason: Nausea Stop: 05/02/25 18:23 Polyethylene Glycol (Polyethylene (Miralax) 17 Gm Pack) 17 gm PO DAILY PRN PRN Reason: Constipation Stop: 05/02/25 18:23
--- NOTE | 2025-04-06 14:06 | Electrocardiogram Report ---
Test Reason : Blood Pressure : */* mmHG Vent. Rate : 117 BPM Atrial Rate : * BPM P-R Int : * ms QRS Dur : 96 ms QT Int : 368 ms P-R-T Axes : * -43 195 degrees QTcB Int : 513 ms Atrial fibrillation with rapid ventricular response vs atrial flutter Left axis deviation Prolonged QT Abnormal ECG When compared with ECG of 02-Apr-2025 14:57, Atrial fibrillation has replaced Sinus rhythm Borderline criteria for Inferior infarct are no longer Present Inverted T waves have replaced nonspecific T wave abnormality in Anterolateral leads Confirmed by Misael Kelley ([id number]) on 04/06/2025 2:05:43 PM Referred By: REFERRED SELF Confirmed By: Misael Kelley
[2025-04-06] MEDS: METOPROLOL SUCC 25MG EXT REL TAB PO SCH (20:08)
[2025-04-07 06:04] LABS: Hematocrit (blood only) 49.9 % (42.0-52.0); Hemoglobin 16.0 g/dl (14.0-18.0); Immature Granulocytes # (auto) 0.08 K/uL (0.01-0.20); Immature Granulocytes % (auto) 0.6 %; Mean Corpuscular Hemoglobin 27.9 pg (25.0-34.0); Mean Corpuscular Volume 87.1 fL (80.0-100.0); Platelet Count 299 K/uL (130-400); RDW Standard Deviation 49.5 fL (36.4-46.3); Red Blood Count 5.73 M/uL (4.70-6.10); White Blood Count 14.22 K/ul (4.8-10.8)
[2025-04-07 06:24] LABS: ANTI-Xa, UFH(UnfractionatedHep 0.44 IU/ml (0.3-0.7)
[2025-04-07] MEDS: ACETAMINOPHEN 325 MG TAB PO PRN (06:27)
[2025-04-07 06:32] LABS: Anion Gap 12.0 (3-11); Bilirubin,Total 0.9 mg/dl (0.2-1.0); Calcium 10.1 mg/dl (8.6-10.3); Carbon Dioxide 32.0 mmol/L (21-32); Chloride 92.0 mmol/L (98-107); Magnesium 2.1 mg/dl (1.7-2.4); Potassium 3.7 mmol/L (3.5-5.1); Sodium 136.0 mmol/L (136-145)
[2025-04-07 06:37] LABS: Alanine Aminotransferase 232.0 U/L (7-52); Albumin Globulin Ratio 0.9 (0.9-2); Alkaline Phosphatase 75.0 U/L (34-104); Blood Urea Nitrogen 70.0 mg/dl (6-23); Creatinine Clr Calc Pharmacy 34.3 ml/min; Globulin 3.9 gm/dl (2.5-4.0); Glucose 138.0 mg/dl (70-99(Fasting)); Total Protein 7.5 gm/dl (6.0-8.3)
[2025-04-07] MEDS: POTASSIUM CHLORIDE CRTAB 20 MEQ TABCR PO STA (08:18)
[2025-04-07] MEDS: METOPROLOL SUCC 50MG EXT REL TAB PO SCH (08:20)
[2025-04-07 12:01] LABS: Hepatitis A Antibody IgM NON-REACTIVE (NON-REACTIVE); Hepatitis B Core Antibody IgM NON-REACTIVE (NON-REACTIVE)
[2025-04-07] MEDS: APIXABAN 5 MG TABLET PO SCH (13:40)
[2025-04-07] MEDS: STOP HEPARIN STA (13:40)
[2025-04-07] MEDS: AMIODARONE / D5W 360 MG/200 ML BAG IV SCH (13:41)
--- NOTE | 2025-04-07 13:49 | Cardiology Progress Note ---
Date of Service April 07, 2025 Assessment & Plan (1) Heart failure, systolic, with acute decompensation: (2) Nonischemic cardiomyopathy: (3) Elevated troponin: (4) Uncontrolled hypertension: (5) PAF (paroxysmal atrial fibrillation): (6) Acute kidney injury: (7) Dyslipidemia, goal LDL below 70: Plan Patient is 59 year old male admitted with signs/symptoms of acute HFrEF. History of non ischemic cardiomyopathy and patient lost insurance and stopped all outpatient Meds. NYHA Class III+. LVEF 25 to 30%. Findings of PAF also present on admission Acute HFrEF - history of NICM with LVEF 25-30% (patient reports prior "angiogram was normal" -Continue IV lasix 100 mg BID -continue metolazone 2.5 mg daily -replace electrolytes. +Potassium supplemented this morning -Monitor I+Os -Daily weight with standing scale -elevated creatinine at 2.89 but around baseline -would benefit from external defib vest on discharge - Discussed with nurse and will discuss with case management. He currently does not have insurance. -continue metoprolol succinate -Not on RADHIKA/ARB due to MELISSA/CKD Meds limited due to hypotension -continue ASA and statin PAF -recurrent afib noted yesterday -rates elevated -Metoprolol increased to 50 mg in AM and 25 mg in PM -IV amiodarone added yesterday. Held overnight. -LFT's improving/trending downward. Resume IV amiodarone gtt. -Unable to use other antiarrhythmics due to MELISSA/CKD and reduced LVEF. -He has been on IV heparin due to PAF and BL LE DVT. -Will need case management to assist with cost of anticoagulation as an outpatient - Eliquis vs coumadin? Morbid obesity -recommend BETTY evaluation as well. Case discussed with Dr. Brandt I spent a total of 50 minutes on the date of service in preparation, delivery, and documentation of the care provided to this patient, excluding any time spent in the performance of separately billed services. Vashti Daigle PA-C Department of Cardiology, [facility] This chart was completed in part utilizing Speech Voice Recognition Software. Grammatical errors, random word insertions, pronoun errors, and incomplete sentences are an occasional consequence of this system due to software limitations, ambient noise, and hardware issues. Any formal questions or concern s about the content, text, or information contained within the body of this dictation should be directly addressed to the provider for clarification. Admission and Anticipated Discharge Date Admission Date: April 02, 2025 Supervising Physician Co-Signing Physician Notes I have personally performed a history and physical examination on the patient. I have reviewed the advance practitioner's documentation, and I agree with, and take responsibility for the plan of care. 59-year-old male admitted with acute heart failure with reduced ejection fraction and history of nonischemic cardiomyopathy. Lower extremity duplex positive for bilateral popliteal thrombosis. Echocardiogram demonstrating severe global hypokinesis with a left ventricular ejection fraction of 25 to 30% on admission. Mild mixed valvular regurgitation noted. Paroxysmal atrial fibrillation/flutter with rapid ventricular response on telemetry. Mildly elevated hepatic enzymes likely due to congestion/CHF. ALT trending downward today. Resume IV amiodarone. Patient transitioned from heparin to oral Eliquis. 10 mg dose given today due to presence of lower extremity popliteal thrombosis. Titration of GDMT limited by renal insufficiency. Continue Toprol- XL 50 mg in the morning, 25 mg in the evening. Repeat basic metabolic panel and hepatic enzymes in AM. Continue IV Lasix plus metolazone. Monitor fluid balance, daily weight, GFR, and electrolytes. Case management needed for assessment of LifeVest due to lack of insurance coverage. Cristóbal Brandt DO, [facility] I spent a total of 35 minutes on the date of service in preparation, delivery, and documentation of the care provided to this patient, excluding any time spent in the performance of separately billed services. Subjective Patient resting in bed. Reports interval improvement in his shortness of breath over the last 24 hours. Ongoing improvement in lower extremity edema also reported. No chest pain. No dizziness. No palpitations. Patient remains in atrial fibrillation with variable rates ranging 90s to 120s. Review of Systems Review of Systems: All systems reviewed & are unremarkable except as noted in HPI & below Physical Exam Physical Exam: General: A&Ox3. NAD. Obese HENT: Normocephalic. Atraumatic. Eyes: PER. Conjunctiva pink, sclera clear. Neck: JVD. HJR. Heart: S1S2. Systolic murmur at the LLSB. No rub. Lungs: decreased BS at bases. No wheezing. No rales Abdomen: +BS. Somewhat firm. Nontender. No masses or organomegaly. Extremities: 1-2+ edema above dressings. B/L wounds wrapped Limited neurological examination is without focal deficits. Results & Data Vital Signs (Past 12 Hours) Vital Signs Temp Pulse Pulse Resp BP Pulse Ox O2 Del Method 04/07/25 11:30 36.3 C L 68 20 124/83 93 Room Air 04/07/25 08:00 83 04/07/25 08:00 Room Air, CPAP 04/07/25 07:46 36.7 C 75 20 132/96 94 Room Air 04/07/25 02:48 36.9 C 78 18 109/89 94 Room Air Laboratory Results Cardiac Enzymes 04/07/25 Range/Units 05:38 AST 86 H (13-39) U/L CBC 04/07/25 Range/Units 05:38 WBC 14.22 H (4.8-10.8) K/ul RBC 5.73 (4.70-6.10) M/uL Hgb 16.0 (14.0-18.0) g/dl Hct 49.9 (42.0-52.0) % Plt Count 299 (130-400) K/uL Neut # (Auto) 11.67 H (1.40-6.50) K/uL Lymph # (Auto) 0.76 L (1.20-3.40) K/uL Sullivan # (Auto) 1.62 H (0.11-0.59) K/uL Eos # (Auto) 0.05 (0.00-0.50) K/uL Baso # (Auto) 0.04 (0.00-0.20) K/uL Comprehensive Metabolic Panel 04/07/25 Range/Units 05:38 Sodium 136 (136-145) mmol/L Potassium 3.7 (3.5-5.1) mmol/L Chloride 92 L (98-107) mmol/L Carbon Dioxide 32 (21-32) mmol/L BUN 70 H (6-23) mg/dl Creatinine 2.89 H D (0.6-1.4) mg/dl Glucose 138 H (70-99(Fasting)) mg/dl Calcium 10.1 (8.6-10.3) mg/dl AST 86 H (13-39) U/L ALT 232 H (7-52) U/L Alkaline Phosphatase 75 (34-104) U/L Total Protein 7.5 (6.0-8.3) gm/dl Albumin 3.6 (3.4-5.0) gm/dl Intake and Output 04/06/25 04/07/25 04/07/25 22:59 06:59 14:59 Intake Total 317.81 / 1517.25 689 / 1517.25 900 / 900 Output Total 202 / 1502 900 / 1502 Balance 115.81 / 15.25 -211 / 15.25 900 / 900 Intake: IV 217.81 / 1177.25 689 / 1177.25 Amiodarone / D5w 360 mg In 200 167.81 / 200.00 ml @ 1 MG/MIN 33.333 mls/hr IV ONE ONE Rx#:[id number] Heparin 09209 Unit/500 ml D5w 689 / 827.25 25,000 units In 500 ml @ 1,750 UNITS/HR 35 mls/hr IV .[id number] [facility] Rx#:[id number] cefTRIAXone SODIUM 2,000 mg In 50 / 50 50 ml @ 100 mls/hr IV Q24H [facility] Rx#:[id number] Oral 100 / 340 900 / 900 Output: Urine 200 / 1500 900 / 1500 # Bowel Movements 2 / 2 Other: Weight 108 kg Weight Measurement Method Built in [facility] Diagnostic Findings Telemetry reviewed: Afib in the 90-120's. Medications Administered Current Inpatient Medications Acetaminophen (Acetaminophen 325 Mg Tab) 650 mg PO Q4H PRN PRN Reason: Pain or Fever Stop: 05/02/25 18:23 Last Admin: 04/07/25 10:35 Dose: 650 mg Al Hydrox/Mg Hydrox/Simethicone (Aluminum/Magnesium Susp 30 Ml Udc) 15 ml PO Q4H PRN PRN Reason: Dyspepsia Stop: 05/02/25 18:23 Apixaban (Apixaban 5 Mg Tablet) 10 mg PO BID [facility] Stop: 04/13/25 21:01 Aspirin (Aspirin 81 Mg Ectab) 81 mg PO QAM [facility] Stop: 05/03/25 08:59 Last Admin: 04/07/25 08:18 Dose: 81 mg Atorvastatin Calcium (Atorvastatin 40 Mg Tab) 80 mg PO QAM [facility] Stop: 05/02/25 15:59 Last Admin: 04/07/25 08:18 Dose: 80 mg Dextrose (Dextrose 50% 50 Ml Syringe) 25 - 50 ml IV UD PRN; Protocol PRN Reason: Hypoglycemia Protocol Stop: 05/02/25 18:23 Doxycycline Hyclate (Doxycycline Hyclate 100 Mg Cap) 100 mg PO Q12H [facility] Stop: 04/08/25 04:59 Last Admin: 04/07/25 05:35 Dose: 100 mg Furosemide (Furosemide 40 Mg/4 Ml Vial) 100 mg IV [id number] [facility] Stop: 05/04/25 06:59 Last Admin: 04/07/25 06:24 Dose: 100 mg Glucagon (Glucagon For Inj 1 Mg Vial) 1 mg SQ UD PRN; Protocol PRN Reason: Hypoglycemia Protocol Stop: 05/02/25 18:23 Glucose (Glucose 40% Gel 15 Gm Tube) 15 - 30 gm PO UD PRN; Protocol PRN Reason: Hypoglycemia Protocol Stop: 05/02/25 18:23 Glucose (Glucose 10 Tab/Tube) 4 - 8 tab PO UD PRN; Protocol PRN Reason: Hypoglycemia Protocol Stop: 05/02/25 18:23 Ceftriaxone Sodium (Rocephin) 2,000 mg in 50 mls @ 100 mls/hr IV Q24H [facility] Stop: 04/08/25 15:59 Last Infusion: 04/06/25 16:10 Dose: Infused Amiodarone HCl/Dextrose (Nexterone / D5w) 360 mg in 200 mls @ 16.667 mls/hr IV .Q12H [facility] Stop: 05/06/25 15:59 Insulin Aspart (Insulin Aspart Per Unit Charge) 0 units SC ACHS [facility] Stop: 05/02/25 20:59 Last Admin: 04/07/25 11:59 Dose: 4 units Magnesium Hydroxide (Magnesium Hydroxide Susp 30 Ml Udc) 30 ml PO Q12H PRN PRN Reason: Constipation Stop: 05/02/25 18:23 Magnesium Oxide (Magnesium Oxide 400 Mg Tab) 400 mg PO DAILY [facility] Stop: 05/03/25 08:59 Last Admin: 04/07/25 09:40 Dose: 400 mg Metolazone (Metolazone 2.5 Mg Tablet) 2.5 mg PO QAM [facility] Stop: 05/04/25 08:59 Last Admin: 04/07/25 08:19 Dose: 2.5 mg Metoprolol Succinate (Metoprolol Succ 25mg Ext Rel Tab) 25 mg PO QPM [facility] Stop: 05/06/25 20:59 Last Admin: 04/06/25 20:08 Dose: 25 mg Metoprolol Succinate (Metoprolol Succ 50mg Ext Rel Tab) 50 mg PO QAM [facility] Stop: 05/07/25 08:59 Last Admin: 04/07/25 08:20 Dose: 50 mg Miscellaneous (Carbohydrates For Hypoglycemia ) 15 - 30 gm PO UD PRN PRN Reason: Hypoglycemia Protocol Stop: 05/02/25 18:23 Ondansetron HCl (Ondansetron Inj 2 Mg/Ml 2 Ml Vial) 4 mg IV Q6H PRN PRN Reason: Nausea Stop: 05/02/25 18:23 Polyethylene Glycol (Polyethylene (Miralax) 17 Gm Pack) 17 gm PO DAILY PRN PRN Reason: Constipation Stop: 05/02/25 18:23 PG Care Time/CCT Total # of Minutes Spent Total Time Spent with Patient: Total time spent is greater than 50% in coordination of care (as documented) at patient's floor/unit and/or counseling patient: 50 minutes Coding Level of Care Code 92264 SUB INP/OBS CARE 3/50MIN Diagnoses Heart failure, systolic, with acute decompensation I50.23 Nonischemic cardiomyopathy I42.8 Elevated troponin R79.89 Uncontrolled hypertension I10 PAF (paroxysmal atrial fibrillation) I48.0 Acute kidney injury N17.9 Dyslipidemia, goal LDL below 70 E78.5
--- NOTE | 2025-04-07 15:23 | Nephrology Progress Note ---
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 He also ahs cellulitic looking lower limbs which are contributing towards the MELISSA>> He margaux has ATN. also h/o UC. His base line weight is around 250 pounds, he was by his report up by around 30 pounds at admission. Admission serum creatinine was 2.8 which had peaked at 3.09 and is now very slowly improving. creat 2.9 today - Continue on Lasix 100 mg IV twice daily, w/ daily 2.5 mg of metolazone - He needs accurate input and output and daily standing weights to guide his diuretic therapy - continue on 1.5 L fluid restriction and less than 2 g sodium diet. - daily STANDING weight pls - Daily BMP continue to hold RADHIKA and Jardiance -replace electrolytes to keep potassium more than 4 and magnesium more than 2 >> had K po 40 mEq today -Renally dose antibiotics (2) Heart failure, systolic, with acute decompensation: Plan: LVEF 25-30% diuretics as above - cardiology on board; recommends lifevest at d/c and AC > team looking at insurance coverage concerns for this (3) Cellulitis: Plan: on doxy; ? any relation to UC dx? Clinically improving though still with elevated white count of 14,000 Admission and Anticipated Discharge Date Admission Date: April 02, 2025 Subjective recurrent AF overnight and BB dose upped also on amiodarone drip; tells me he is breathing better and feeling better overall. States edema improving, less exertional dyspnea, denies voiding concerns, denies nausea vomiting chest pain palpitations Review of Systems 2 Review of Systems: All systems reviewed & are unremarkable except as noted in Subjective Physical Exam 2 Constitutional: well developed, well nourished, + obese and cooperative Eyes: EOM intact bilaterally ENMT: Mouth: + dry oral mucous membranes Respiratory: normal respiratory effort Auscultation: + diminished lung sounds Cardiovascular: Rate/Rhythm: regular rate and regular rhythm Extremities: + edema (3+) Gastrointestinal (Abdomen): Inspection/Auscultation: + abdomen distended and normal bowel sounds Percussion/Palpation: abdomen soft and + ascites; abdomen nontender Musculoskeletal: Extremities: strength 5/5 throughout Skin: no rashes, warm and dry Results & Data Vital Signs (Past 12 Hours) Vital Signs Temp Pulse Pulse Resp BP Pulse Ox O2 Del Method 04/07/25 11:30 36.3 C L 68 20 124/83 93 Room Air 04/07/25 08:00 83 04/07/25 08:00 Room Air, CPAP 04/07/25 07:46 36.7 C 75 20 132/96 94 Room Air Laboratory Results 04/07/25 05:38 04/07/25 05:38
--- NOTE | 2025-04-07 17:04 | Hospitalist Progress Note ---
Date of Service April 07, 2025 Assessment & Plan (1) CHF exacerbation: Plan: Mr. Lopez is a 59 year old M with a past medical history of chronic systolic heart failure, diabetes type II, hypertension, CKD stage III, hyperlipidemia, obesity, ulcerative colitis presenting with shortness of breath, edema, cough and admitted for acute HFrEF. Patient moved from [place] and had a lapse in insurance resulting in cessation of all outpatient medications. #Acute HFrEF #history of NICM with LVEF 25-30% #Elevated troponin, demand iso heart failure exacerbation Nonadherence to meds with acute exacerbation of CHF->BNP 1581 -Continue IV lasix 100 mg BID -continue metolazone 2.5 mg daily -replace electrolytes prn -Monitor I+Os -Daily weight with standing scale -[employer] medical assistance program to eval tomorrow for life vest -continue metoprolol succinate 50qam/ 25qpm -gdmt limited 2/2 ckd and hypotension -continue ASA and statin #PAF -recurrent afib noted yesterday -IV amiodarone resumed -started eliquis, will work for pharmacy coupon for OP #Morbid obesity -recommend BETTY eval #Acute DVT Venous Doppler for r/o DVT showed occlusive thrombus within the popliteal veins bilaterally--> Heparin drip initiated transitioned to eliquis 10mg bid x 7 days , the 5mg bid #Hypertension Hypertensive, tachypneic, tachycardiac in ED Blood pressure remains elevated this morning at 166/100 monitor bp as relatively hypotensive #Suspected CAP Blood cultures have been negative and urine culture is growing 3 types of organisms Will repeat chest x-ray tomorrow- unchanged homogeneous opacities left lower zone and subsegmental atelectasis Will finish the course of antibiotic for a total of 7 days #Cellulitis continue CTX and doxy as above #MELISSA on CKD Stage III suspect multifactorial, ATN, infection cr peaked at 3.09 encourage standing weights continue IV lasix and metolazone replace electrolytes prn FR 1.5L 2g sodium diet #Transaminitis, downtrending * Elevated LFTs-> Bili 1.7, AST 110, ALT 100; suspect hepatic congestion * No abdominal symptoms * Ultrasound showed hepatomegaly and thickening of the gallbladder wall without any cholecystitis or cholelithiasis Increasing LFTs could be secondary to fatty liver disease/mild hepatic congestion from CHF #Hyperlipidemia * Atorvastatin on high dose at home- resumed #Diabetes Type II, non-insulin dependent * A1C 6.8% * Hold home metformin and Jardiance * SSI while inpatient; Goal BSG 110-140, adjust as needed * Diabetic teaching at discharge needed DVT Ppx: eliquis Code status: Full PCP: No PCP Dispo: Admit to Tele for further management; Discharge planning- CM to establish PCP and Cardiology follow-up at d/c (2) Cellulitis: (3) Hypertension: (4) CKD (chronic kidney disease), stage III: (5) Transaminitis: (6) Hyperlipidemia: (7) Diabetes mellitus, type II: Admission and Anticipated Discharge Date Admission Date: April 02, 2025 Subjective NAEO reports feeling much improved overall, but still not at baseline denies chest pain, palpitations or continue cough Reports more energy and motivation this am Physical Exam Constitutional: WD/WN, vitals as above Respiratory: normal respiratory effort, lungs clear to auscultation Cardiovascular: RRR, BLE pitting pedal edema, nonpitting around BL shins Skin: dressing in bilateral lower extremities clean dry and in place Results & Data Results & Data Vital Signs (Past 12 Hours) Vital Signs Temp Pulse Pulse Resp BP Pulse Ox O2 Del Method 04/07/25 16:29 36.4 C L 81 20 90/61 L 93 Room Air 04/07/25 15:00 101 H 04/07/25 11:30 36.3 C L 68 20 124/83 93 Room Air 04/07/25 08:00 83 04/07/25 08:00 Room Air, CPAP 04/07/25 07:46 36.7 C 75 20 132/96 94 Room Air Laboratory Results Short CBC 04/07/25 Range/Units 05:38 WBC 14.22 H (4.8-10.8) K/ul Hgb 16.0 (14.0-18.0) g/dl Hct 49.9 (42.0-52.0) % Plt Count 299 (130-400) K/uL BMP 04/07/25 05:38 Sodium 136 Potassium 3.7 Chloride 92 L Carbon Dioxide 32 BUN 70 H Creatinine 2.89 H D Glucose 138 H Calcium 10.1 Liver Function 04/07/25 Range/Units 05:38 Total Bilirubin 0.9 (0.2-1.0) mg/dl AST 86 H (13-39) U/L ALT 232 H (7-52) U/L Alkaline Phosphatase 75 (34-104) U/L Albumin 3.6 (3.4-5.0) gm/dl Medications Administered Home Medications Medication Instructions Recorded Confirmed Last Taken aspirin 81 mg tablet 81 mg PO DAILY 04/02/25 04/02/25 Unknown atorvastatin 80 mg tablet 80 mg PO HS 04/02/25 04/02/25 Unknown bumetanide 0.5 mg tablet 0.5 mg PO DAILY 04/02/25 04/02/25 Unknown empagliflozin 10 mg tablet 10 mg PO DAILY 04/02/25 04/02/25 Unknown (Jardiance) eplerenone 50 mg tablet 50 mg PO DAILY 04/02/25 04/02/25 Unknown magnesium oxide 400 mg (241.3 mg 400 mg PO DAILY 04/02/25 04/02/25 Unknown magnesium) tablet metformin 500 mg tablet 500 mg PO DAILY 04/02/25 04/02/25 Unknown metoprolol succinate 25 mg 25 mg PO DAILY 04/02/25 04/02/25 Unknown tablet,extended release 24 hr ramipril 5 mg tablet 5 mg PO DAILY 04/02/25 04/02/25 Unknown apixaban 5 mg (74 tabs) tablets in 5 mg PO BID #74 ea 04/07/25 Unknown a dose pack ([employer]) Active Medications Generic Name Dose Route Start Last Admin Trade Name Freq PRN Reason Stop Dose Admin Acetaminophen 650 mg 04/02/25 18:24 04/07/25 10:35 Acetaminophen 325 Mg Tab PO 05/02/25 18:23 650 mg Q4H PRN Administration Pain or Fever Apixaban 10 mg 04/07/25 13:25 04/07/25 13:40 Apixaban 5 Mg Tablet PO 04/13/25 21:01 10 mg BID PEDRO Administration Aspirin 81 mg 04/03/25 09:00 04/07/25 08:18 Aspirin 81 Mg Ectab PO 05/03/25 08:59 81 mg QAM PEDRO Administration Atorvastatin Calcium 80 mg 04/02/25 16:00 04/07/25 08:18 Atorvastatin 40 Mg Tab PO 05/02/25 15:59 80 mg QAM PEDRO Administration Doxycycline Hyclate 100 mg 04/03/25 05:00 04/07/25 05:35 Doxycycline Hyclate 100 Mg Cap PO 04/08/25 04:59 100 mg Q12H PEDRO Administration Furosemide 100 mg 04/04/25 07:00 04/07/25 13:40 Furosemide 40 Mg/4 Ml Vial IV 05/04/25 06:59 100 mg [id number] PEDRO Administration Ceftriaxone Sodium 2,000 mg in 50 mls @ 100 mls/hr 04/03/25 16:00 04/06/25 16:10 Rocephin IV 04/08/25 15:59 Infused Q24H PEDRO Infusion Amiodarone HCl/Dextrose 360 mg in 200 mls @ 16.667 mls/hr 04/06/25 16:00 04/07/25 13:41 Nexterone / D5w IV 05/06/25 15:59 0.5 mg/min .Q12H PEDRO 16.7 mls/hr Administration 0.5 MG/MIN Insulin Aspart 0 units 04/02/25 21:00 04/07/25 11:59 Insulin Aspart Per Unit Charge SC 05/02/25 20:59 4 units ACHS PEDRO Administration Magnesium Oxide 400 mg 04/03/25 09:00 04/07/25 09:40 Magnesium Oxide 400 Mg Tab PO 05/03/25 08:59 400 mg DAILY PEDRO Administration Metolazone 2.5 mg 04/04/25 09:00 04/07/25 08:19 Metolazone 2.5 Mg Tablet PO 05/04/25 08:59 2.5 mg QAM PEDRO Administration Metoprolol Succinate 25 mg 04/06/25 21:00 04/06/25 20:08 Metoprolol Succ 25mg Ext Rel Tab PO 05/06/25 20:59 25 mg QPM PEDRO Administration Metoprolol Succinate 50 mg 04/07/25 09:00 04/07/25 08:20 Metoprolol Succ 50mg Ext Rel Tab PO 05/07/25 08:59 50 mg QAM PEDRO Administration
[2025-04-07] MEDS: BENZONATATE 100 MG CAPSULE PO ONE (19:49)
[2025-04-08 06:56] LABS: Alanine Aminotransferase 162.0 U/L (7-52); Alkaline Phosphatase 67.0 U/L (34-104); Anion Gap 14.0 (3-11); Bilirubin,Total 0.8 mg/dl (0.2-1.0); Blood Urea Nitrogen 75.0 mg/dl (6-23); Calcium 9.7 mg/dl (8.6-10.3); Carbon Dioxide 30.0 mmol/L (21-32); Chloride 93.0 mmol/L (98-107); Creatinine Clr Calc Pharmacy 41.1 ml/min; Glucose 127.0 mg/dl (70-99(Fasting)); Magnesium 2.1 mg/dl (1.7-2.4); Potassium 3.1 mmol/L (3.5-5.1); Sodium 137.0 mmol/L (136-145); Total Protein 7.0 gm/dl (6.0-8.3)
[2025-04-08 07:00] LABS: INR 1.3 (0.9-1.1); Prothrombin Time 14.2 Seconds (9.0-12.0)
[2025-04-08 07:27] LABS: ANTI-Xa, UFH(UnfractionatedHep > 1.50 IU/ml (0.3-0.7)
--- NOTE | 2025-04-08 07:44 | Nephrology Progress Note ---
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 He also ahs cellulitic looking lower limbs which are contributing towards the MELISSA>> He margaux has ATN. also h/o UC. His base line weight is around 250 pounds, he was by his report up by around 30 pounds at admission. Admission serum creatinine was 2.8 which had peaked at 3.09 and is now very slowly improving. creat 2.9 today - Continue on Lasix 100 mg IV twice daily, w/ daily 2.5 mg of metolazone - He needs accurate input and output and daily standing weights to guide his diuretic therapy >> 04/05 130.1 kg; 04/08 120.6 kg - continue on 1.5 L fluid restriction and less than 2 g sodium diet. - Daily BMP continue to hold RADHIKA and Jardiance -replace electrolytes to keep potassium more than 4 and magnesium more than 2 >> had K po 40 mEq today -Renally dose antibiotics Will sign off NEPH S/O NOTE DX -cardiorenal syndrome -acute systolic heart failure -CKD unknown baseline, presume 3B at least -ATN from CRS; stable renal function RX -bumetanide 2 mg bid14 or as per cardiology -jardiance 10 mg daily -ramipril 5 mg daily -mag ox 400 mg daily OTHER CARE -daily STANDING weight per HF protocol pls educate pt -sleep study/BETTY eval -1.5L daily fluid limit and <2 gm daily Na diet -lifevest and AC as per cardiology >2 gm daily Na diet -weekly bmp x 3 to be ordered by PCP F/U Appts -cardiology, PCP appts >hospital d/c appt w/ me in 2-3 wks w/ wt log and if able BP log. bring home bp cuff along to neph appt; check bmp, ACR, UACM, phos, PTH, 25 OHD, hgb, mag before appt > neph nurse to order [facility], f/u appts and plans; we are in agreement (2) Heart failure, systolic, with acute decompensation: Plan: LVEF 25-30% diuretics as above - cardiology on board; recommends lifevest at d/c and AC > team looking at insurance coverage concerns for this (3) Cellulitis: Plan: on doxy; ? any relation to UC dx? Clinically improving though still with elevated white count of 16,000 Admission and Anticipated Discharge Date Admission Date: April 02, 2025 Subjective Got his LifeVest. Edema continues to improve. Continues to ambulate in the room. No plans to return to [facility] at this time. Understands need for renal follow-up. Review of Systems 2 Review of Systems: All systems reviewed & are unremarkable except as noted in Subjective Physical Exam 2 Constitutional: well developed, well nourished, + obese and cooperative Eyes: EOM intact bilaterally ENMT: Mouth: + dry oral mucous membranes Respiratory: normal respiratory effort Auscultation: + diminished lung sounds Cardiovascular: Rate/Rhythm: regular rate and regular rhythm Extremities: + edema (1+) Gastrointestinal (Abdomen): Inspection/Auscultation: + abdomen distended and normal bowel sounds Percussion/Palpation: abdomen soft and + ascites; abdomen nontender Musculoskeletal: Extremities: strength 5/5 throughout Skin: no rashes, warm and dry Results & Data Vital Signs (Past 12 Hours) Vital Signs Temp Pulse Pulse Resp BP Pulse Ox O2 Del Method 04/08/25 03:15 36.9 C 90 18 122/94 95 Room Air 04/08/25 00:29 108 H 04/07/25 22:52 36.8 C 65 18 123/79 93 Room Air 04/07/25 20:00 Room Air Laboratory Results 04/08/25 05:55 04/08/25 05:55
[2025-04-08] MEDS: POTASSIUM CHLORIDE CRTAB 20 MEQ TABCR PO STA (08:02)
[2025-04-08] MEDS: POTASSIUM CHLORIDE / WTR 10 MEQ/100 ML PLCT IV SCH (08:02)
[2025-04-08] MEDS: BENZONATATE 100 MG CAPSULE PO SCH (08:04)
[2025-04-08 08:12] LABS: Immature Granulocytes # (auto) 0.08 K/uL (0.01-0.20); Immature Granulocytes % (auto) 0.5 %
[2025-04-08 08:18] LABS: Hematocrit (blood only) 45.0 % (42.0-52.0); Hemoglobin 14.6 g/dl (14.0-18.0); Mean Corpuscular Hemoglobin 27.9 pg (25.0-34.0); Mean Corpuscular Volume 86.0 fL (80.0-100.0); Platelet Count 276 K/uL (130-400); RDW Standard Deviation 48.9 fL (36.4-46.3); Red Blood Count 5.23 M/uL (4.70-6.10); White Blood Count 16.00 K/ul (4.8-10.8)
[2025-04-08 08:31] LABS: Polychromasia 1+
[2025-04-08] MEDS: POTASSIUM CHLORIDE CRTAB 20 MEQ TABCR PO SCH (09:05)
--- NOTE | 2025-04-08 10:53 | Hospitalist Progress Note ---
Date of Service April 08, 2025 Assessment & Plan (1) CHF exacerbation: Plan: Mr. Lopez is a 59 year old M with a past medical history of chronic systolic heart failure, diabetes type II, hypertension, CKD stage III, hyperlipidemia, obesity, ulcerative colitis presenting with shortness of breath, edema, cough and admitted for acute HFrEF. Patient moved from [place] and had a lapse in insurance resulting in cessation of all outpatient medications. Plan to submit letter to expedite [place] application #Leukocytosis clinically improving, currently on day 6 of abx UA previously with mixed laurie blood cx NGTD 04/02 peripheral smear consult placed Continue current abx for below noted cellulitis #Acute HFrEF #history of NICM with LVEF 25-30% #Elevated troponin, demand iso heart failure exacerbation Nonadherence to meds with acute exacerbation of CHF->BNP 1581 -Continue IV lasix 100 mg BID -continue metolazone 2.5 mg daily -replace electrolytes prn -Monitor I+Os -Daily weight with standing scale -[employer] program working on life vest -continue metoprolol succinate 50qam/ 25qpm -gdmt limited 2/2 ckd and hypotension -continue ASA and statin #PAF -recurrent afib noted yesterday -IV amiodarone resumed -continue eliquis, will work for pharmacy coupon for OP #Morbid obesity -recommend BETTY eval #Acute DVT Venous Doppler for r/o DVT showed occlusive thrombus within the popliteal veins bilaterally--> Heparin drip initiated transitioned to eliquis 10mg bid x 7 days , the 5mg bid #Hypertension Hypertensive, tachypneic, tachycardiac in ED Blood pressure remains elevated this morning at 166/100 monitor bp as relatively hypotensive #Suspected CAP Blood cultures have been negative and urine culture is growing 3 types of organisms Will repeat chest x-ray tomorrow- unchanged homogeneous opacities left lower zone and subsegmental atelectasis Will finish the course of antibiotic for a total of 7 days #Cellulitis continue CTX and doxy as above #MELISSA on CKD Stage III suspect multifactorial, ATN, infection cr peaked at 3.09 encourage standing weights continue IV lasix and metolazone replace electrolytes prn FR 1.5L 2g sodium diet #Transaminitis, downtrending * Elevated LFTs-> Bili 1.7, AST 110, ALT 100; suspect hepatic congestion * No abdominal symptoms * Ultrasound showed hepatomegaly and thickening of the gallbladder wall without any cholecystitis or cholelithiasis Increasing LFTs could be secondary to fatty liver disease/mild hepatic congestion from CHF--currently improving #Hyperlipidemia * Atorvastatin on high dose at home- resumed #Diabetes Type II, non-insulin dependent * A1C 6.8% * Hold home metformin and Jardiance * SSI while inpatient; Goal BSG 110-140, adjust as needed * Diabetic teaching at discharge needed DVT Ppx: eliquis Code status: Full PCP: No PCP Dispo: currently working to expedite MA (2) Cellulitis: (3) Hypertension: (4) CKD (chronic kidney disease), stage III: (5) Transaminitis: (6) Hyperlipidemia: (7) Diabetes mellitus, type II: Admission and Anticipated Discharge Date Admission Date: April 02, 2025 Subjective Patient reports continued improvement. Noting increased energy and better mobility today Denies any new or acute concerns at this time Denies chest pain or palpitations Physical Exam Constitutional: WD/WN, vitals as above Respiratory: normal respiratory effort, lungs clear to auscultation Cardiovascular: TORRES+ RRR Musculoskeletal: bilateral edema 1+ just below knees Results & Data Results & Data Vital Signs (Past 12 Hours) Vital Signs Temp Pulse Pulse Resp BP Pulse Ox O2 Del Method 04/08/25 08:00 Room Air 04/08/25 07:46 36.3 C L 102 H 143/91 H 92 Room Air 04/08/25 03:15 36.9 C 90 18 122/94 95 Room Air 04/08/25 00:29 108 H 04/07/25 22:52 36.8 C 65 18 123/79 93 Room Air Laboratory Results Short CBC 04/08/25 Range/Units 05:55 WBC 16.00 H (4.8-10.8) K/ul Hgb 14.6 (14.0-18.0) g/dl Hct 45.0 (42.0-52.0) % Plt Count 276 (130-400) K/uL BMP 04/08/25 05:55 Sodium 137 Potassium 3.1 L Chloride 93 L Carbon Dioxide 30 BUN 75 H Creatinine 2.55 H D Glucose 127 H Calcium 9.7 Liver Function 04/08/25 Range/Units 05:55 Total Bilirubin 0.8 (0.2-1.0) mg/dl Direct Bilirubin 0.3 H (0-0.2) mg/dl AST 56 H (13-39) U/L ALT 162 H (7-52) U/L Alkaline Phosphatase 67 (34-104) U/L Albumin 3.3 L (3.4-5.0) gm/dl Medications Administered Home Medications Medication Instructions Recorded Confirmed Last Taken aspirin 81 mg tablet 81 mg PO DAILY 04/02/25 04/02/25 Unknown atorvastatin 80 mg tablet 80 mg PO HS 04/02/25 04/02/25 Unknown bumetanide 0.5 mg tablet 0.5 mg PO DAILY 04/02/25 04/02/25 Unknown empagliflozin 10 mg tablet 10 mg PO DAILY 04/02/25 04/02/25 Unknown (Jardiance) eplerenone 50 mg tablet 50 mg PO DAILY 04/02/25 04/02/25 Unknown magnesium oxide 400 mg (241.3 mg 400 mg PO DAILY 04/02/25 04/02/25 Unknown magnesium) tablet metformin 500 mg tablet 500 mg PO DAILY 04/02/25 04/02/25 Unknown metoprolol succinate 25 mg 25 mg PO DAILY 04/02/25 04/02/25 Unknown tablet,extended release 24 hr ramipril 5 mg tablet 5 mg PO DAILY 04/02/25 04/02/25 Unknown apixaban 5 mg (74 tabs) tablets in 5 mg PO BID #74 ea 04/07/25 Unknown a dose pack ([employer]) Active Medications Generic Name Dose Route Start Last Admin Trade Name Freq PRN Reason Stop Dose Admin Acetaminophen 650 mg 04/02/25 18:24 04/07/25 10:35 Acetaminophen 325 Mg Tab PO 05/02/25 18:23 650 mg Q4H PRN Administration Pain or Fever Apixaban 10 mg 04/07/25 13:25 04/08/25 08:02 Apixaban 5 Mg Tablet PO 04/13/25 21:01 10 mg BID PEDRO Administration Aspirin 81 mg 04/03/25 09:00 04/08/25 08:03 Aspirin 81 Mg Ectab PO 05/03/25 08:59 81 mg QAM PEDRO Administration Atorvastatin Calcium 80 mg 04/02/25 16:00 04/08/25 08:03 Atorvastatin 40 Mg Tab PO 05/02/25 15:59 80 mg QAM PEDRO Administration Benzonatate 100 mg 04/08/25 09:00 04/08/25 08:04 Benzonatate 100 Mg Capsule PO 05/08/25 08:59 100 mg TID PEDRO Administration Furosemide 100 mg 04/04/25 07:00 04/08/25 06:16 Furosemide 40 Mg/4 Ml Vial IV 05/04/25 06:59 100 mg [id number] PEDRO Administration Ceftriaxone Sodium 2,000 mg in 50 mls @ 100 mls/hr 04/03/25 16:00 04/07/25 17:52 Rocephin IV 04/08/25 15:59 Infused Q24H PEDRO Infusion Amiodarone HCl/Dextrose 360 mg in 200 mls @ 16.667 mls/hr 04/06/25 16:00 04/08/25 01:14 Nexterone / D5w IV 05/06/25 15:59 0.5 mg/min .Q12H PEDRO 16.7 mls/hr Administration 0.5 MG/MIN Potassium Chloride 10 meq in 100 mls @ 100 mls/hr 04/08/25 07:15 04/08/25 10:23 K Jose Ramon / Wtr IV 04/08/25 11:14 100 mls/hr Q1H PEDRO Administration Insulin Aspart 0 units 04/02/25 21:00 04/08/25 08:01 Insulin Aspart Per Unit Charge SC 05/02/25 20:59 7 units ACHS PEDRO Administration Magnesium Oxide 400 mg 04/03/25 09:00 04/08/25 09:05 Magnesium Oxide 400 Mg Tab PO 05/03/25 08:59 400 mg DAILY PEDRO Administration Metolazone 2.5 mg 04/04/25 09:00 04/08/25 08:03 Metolazone 2.5 Mg Tablet PO 05/04/25 08:59 2.5 mg QAM PEDRO Administration Metoprolol Succinate 25 mg 04/06/25 21:00 04/07/25 19:54 Metoprolol Succ 25mg Ext Rel Tab PO 05/06/25 20:59 Not Given QPM PEDRO Metoprolol Succinate 50 mg 04/07/25 09:00 04/08/25 08:04 Metoprolol Succ 50mg Ext Rel Tab PO 05/07/25 08:59 50 mg QAM PEDRO Administration Potassium Chloride 40 meq 04/08/25 09:00 04/08/25 09:05 Potassium Chloride Crtab 20 Meq Tabcr PO 05/08/25 08:59 40 meq QAM PEDRO Administration
--- NOTE | 2025-04-08 12:33 | Electrocardiogram Report ---
Test Reason : Blood Pressure : */* mmHG Vent. Rate : 114 BPM Atrial Rate : * BPM P-R Int : * ms QRS Dur : 96 ms QT Int : 382 ms P-R-T Axes : * 57 176 degrees QTcB Int : 526 ms Atrial fibrillation with rapid ventricular response with premature ventricular or aberrantly conducte d complexes Nonspecific ST and T wave abnormality Prolonged QT Abnormal ECG When compared with ECG of 05-Apr-2025 23:38, QRS axis Shifted right T wave inversion less evident in Anterolateral leads Confirmed by Misael Kelley ([id number]) on 04/08/2025 12:32:54 PM Referred By: REFERRED SELF Confirmed By: Misael Kelley
[2025-04-08 13:14] LABS: Anion Gap 10.0 (3-11); Blood Urea Nitrogen 75.0 mg/dl (6-23); Calcium 9.7 mg/dl (8.6-10.3); Carbon Dioxide 34.0 mmol/L (21-32); Chloride 92.0 mmol/L (98-107); Creatinine Clr Calc Pharmacy 37.3 ml/min; Glucose 149.0 mg/dl (70-99(Fasting)); Potassium 4.1 mmol/L (3.5-5.1); Sodium 136.0 mmol/L (136-145)
--- NOTE | 2025-04-08 13:56 | Cardiology Progress Note ---
Date of Service April 08, 2025 Assessment & Plan (1) Heart failure, systolic, with acute decompensation: (2) Nonischemic cardiomyopathy: (3) Elevated troponin: (4) Uncontrolled hypertension: (5) PAF (paroxysmal atrial fibrillation): (6) Acute kidney injury: (7) Dyslipidemia, goal LDL below 70: Plan Patient is 59 year old male admitted with signs/symptoms of acute HFrEF. History of non ischemic cardiomyopathy and patient lost insurance and stopped all outpatient Meds. NYHA Class III+. LVEF 25 to 30%. Findings of PAF also present on admission Acute HFrEF - history of NICM with LVEF 25-30% (patient reports prior "angiogram was normal") -weight trending downward - use standing scale -Continue IV lasix 100 mg BID -continue metolazone 2.5 mg daily -replace electrolytes. +Potassium supplemented this morning. recheck potassium this afternoon -Monitor I+Os -stable creatinine -would benefit from external defib vest on discharge - Zoll life vest ordered and Zoll rep to help with assistance. -continue metoprolol succinate -Not on RADHIKA/ARB due to MELISSA/CKD Meds limited due to hypotension -continue ASA and statin PAF -Persistent afib over the last 24-48 hours. After patient was seen this morning he converted to NSR. -Repeat EKG -Metoprolol increased to 50 mg in AM and 25 mg in PM -Stop IV amiodarone and transition to oral amiodarone 200 mg BID -LFT's improving/trending downward. Monitor -Normal TSH on admission -Unable to use other antiarrhythmics due to MELISSA/CKD and reduced LVEF. -He has been on IV heparin due to PAF and BL LE DVT. Transitioned to oral Elqiuis 10 mg BID -Case management to assist with cost. Morbid obesity -recommend BETTY evaluation as well. Case discussed with Dr. Brandt I spent a total of 40 minutes on the date of service in preparation, delivery, and documentation of the care provided to this patient, excluding any time spent in the performance of separately billed services. Vashti Daigle PA-C Department of Cardiology, [facility] This chart was completed in part utilizing Speech Voice Recognition Software. Grammatical errors, random word insertions, pronoun errors, and incomplete sentences are an occasional consequence of this system due to software limitations, ambient noise, and hardware issues. Any formal questions or concerns about the content, text, or information contained within the body of this dictation should be directly addressed to the provider for clarification. Admission and Anticipated Discharge Date Admission Date: April 02, 2025 Supervising Physician Co-Signing Physician Notes I have personally performed a history and physical examination on the patient. I have reviewed the advance practitioner's documentation, and I agree with, and take responsibility for the plan of care. 59-year-old male admitted with acute heart failure with reduced ejection fraction and history of nonischemic cardiomyopathy. Lower extremity duplex positive for bilateral popliteal thrombosis. Echocardiogram demonstrating severe global hypokinesis with a left ventricular ejection fraction of 25 - 30% on admission. Mild mixed valvular regurgitation noted. Paroxysmal atrial fibrillation/flutter with rapid ventricular response on telemetry. Mildly elevated hepatic enzymes likely due to congestion/CHF. ALT continues to trend downward today. Converted to normal sinus rhythm earlier today. Discontinue IV amiodarone. Transition to oral amiodarone 200 mg twice daily. Continue Eliquis for treatment DVT and PAF. Titration of GDMT limited by renal insufficiency. Continue Toprol-XL 50 mg in the morning, 25 mg in the evening. Repeat basic metabolic panel and hepatic enzymes in AM. Continue IV Lasix plus metolazone. Monitor fluid balance, daily weight, GFR, and electrolytes. Transition to oral diuretic therapy in the next 24 to 48 hours. Awaiting approval/placement of LifeVest. Cristóbal Brandt DO, [facility] I spent a total of 35 minutes on the date of service in preparation, delivery, and documentation of the care provided to this patient, excluding any time spent in the performance of separately billed services. Subjective Patient resting in bed. Edema and SOB continues to improve. No chest pain. No sense of palpitations or dizziness. No orthpnea. Cough also improving. Weight done on standing scale this morning and patient believes he has lost about 20 lbs since admission. Ongoing diuresis reported. Review of Systems Review of Systems: All systems reviewed & are unremarkable except as noted in HPI & below Physical Exam Physical Exam: General: A&Ox3. NAD. Obese HENT: Normocephalic. Atraumatic. Eyes: PER. Conjunctiva pink, sclera clear. Neck: JVD. HJR. Heart: S1S2. Systolic murmur at the LLSB. No rub. Lungs: decreased BS at bases. No wheezing. No rales Abdomen: +BS. Somewhat firm. Nontender. No masses or organomegaly. Extremities: 1-2+ edema above dressings. B/L wounds wrapped Limited neurological examination is without focal deficits. Results & Data Vital Signs (Past 12 Hours) Vital Signs Temp Pulse Resp BP Pulse Ox O2 Del Method 04/08/25 12:06 36.4 C L 104 H 18 107/39 L 92 Room Air 04/08/25 08:00 Room Air 04/08/25 07:46 36.3 C L 102 H 143/91 H 92 Room Air 04/08/25 03:15 36.9 C 90 18 122/94 95 Room Air Laboratory Results Cardiac Enzymes 04/08/25 Range/Units 05:55 AST 56 H (13-39) U/L Coagulation 04/08/25 Range/Units 05:55 PT 14.2 H (9.0-12.0) Seconds CBC 04/08/25 Range/Units 05:55 WBC 16.00 H (4.8-10.8) K/ul RBC 5.23 (4.70-6.10) M/uL Hgb 14.6 (14.0-18.0) g/dl Hct 45.0 (42.0-52.0) % Plt Count 276 (130-400) K/uL Neut # (Auto) 13.25 H (1.40-6.50) K/uL Lymph # (Auto) 0.67 L (1.20-3.40) K/uL [place] # (Auto) 1.88 H (0.11-0.59) K/uL Eos # (Auto) 0.12 (0.00-0.50) K/uL Baso # (Auto) 0.05 (0.00-0.20) K/uL Comprehensive Metabolic Panel 04/08/25 04/08/25 Range/Units 05:55 12:36 Sodium 137 136 (136-145) mmol/L Potassium 3.1 L 4.1 D (3.5-5.1) mmol/L Chloride 93 L 92 L (98-107) mmol/L Carbon Dioxide 30 34 H (21-32) mmol/L BUN 75 H 75 H (6-23) mg/dl Creatinine 2.55 H D 2.81 H (0.6-1.4) mg/dl Glucose 127 H 149 H (70-99(Fasting)) mg/dl Calcium 9.7 9.7 (8.6-10.3) mg/dl Direct Bilirubin 0.3 H (0-0.2) mg/dl AST 56 H (13-39) U/L ALT 162 H (7-52) U/L Alkaline Phosphatase 67 (34-104) U/L Total Protein 7.0 (6.0-8.3) gm/dl Albumin 3.3 L (3.4-5.0) gm/dl Intake and Output 04/07/25 04/08/25 04/08/25 22:59 06:59 14:59 Intake Total 150 / 1491.885 192.885 / 1491.885 600 / 600 Balance 150 / 616.885 192.885 / 616.885 600 / 600 Intake: IV 50 / 491.885 192.885 / 491.885 600 / 600 Amiodarone / D5w 360 mg In 200 192.885 / 192.885 200 / 200 ml @ 0.5 MG/MIN 16.667 mls/hr IV .Q12H PEDRO Rx#:[id number] Potassium Chloride / Wtr 10 meq 400 / 400 In 100 ml @ 100 mls/hr IV Q1H PEDRO Rx#:[id number] cefTRIAXone SODIUM 2,000 mg In 50 / 50 50 ml @ 100 mls/hr IV Q24H PEDRO Rx#:[id number] Oral 100 / 1000 Other: # Unmeasured Voids 2 2 Weight 120.6 kg Weight Measurement Method Standing Scale Diagnostic Findings Telemetry reviewed: Persistent afib with variable rates; several episodes of non sustained/wide complex tachycardia. no symptoms. PG Care Time/CCT Total # of Minutes Spent Total Time Spent with Patient: Total time spent is greater than 50% in coordination of care (as documented) at patient's floor/unit and/or counseling patient: 40 minutes Coding Level of Care Code 18616 SUB INP/OBS CARE 3/50MIN Diagnoses Heart failure, systolic, with acute decompensation I50.23 Nonischemic cardiomyopathy I42.8 Elevated troponin R79.89 Uncontrolled hypertension I10 PAF (paroxysmal atrial fibrillation) I48.0 Acute kidney injury N17.9 Dyslipidemia, goal LDL below 70 E78.5
[2025-04-08] MEDS: AMIODARONE 200 MG TAB PO SCH (17:44)
[2025-04-09 05:00] LABS: Hematocrit (blood only) 48.8 % (42.0-52.0); Hemoglobin 16.0 g/dl (14.0-18.0); Immature Granulocytes # (auto) 0.13 K/uL (0.01-0.20); Immature Granulocytes % (auto) 0.7 %; Mean Corpuscular Hemoglobin 28.3 pg (25.0-34.0); Mean Corpuscular Volume 86.2 fL (80.0-100.0); Platelet Count 341 K/uL (130-400); RDW Standard Deviation 49.2 fL (36.4-46.3); Red Blood Count 5.66 M/uL (4.70-6.10); White Blood Count 19.66 K/ul (4.8-10.8)
[2025-04-09 05:29] LABS: Anion Gap 10.0 (3-11); Blood Urea Nitrogen 76.0 mg/dl (6-23); Calcium 10.2 mg/dl (8.6-10.3); Carbon Dioxide 29.0 mmol/L (21-32); Chloride 95.0 mmol/L (98-107); Creatinine Clr Calc Pharmacy 36.0 ml/min; Glucose 122.0 mg/dl (70-99(Fasting)); Magnesium 2.2 mg/dl (1.7-2.4); Potassium 3.9 mmol/L (3.5-5.1); Sodium 134.0 mmol/L (136-145)
[2025-04-09 05:36] LABS: INR 1.3 (0.9-1.1); Prothrombin Time 14.0 Seconds (9.0-12.0)
[2025-04-09 09:05] LABS: Appearance Urine Clear (Clear); Glucose Urine UA Negative (Negative)
--- NOTE | 2025-04-09 10:32 | Cardiology Progress Note ---
Date of Service April 09, 2025 Assessment & Plan (1) Heart failure, systolic, with acute decompensation: (2) Nonischemic cardiomyopathy: (3) Elevated troponin: (4) Uncontrolled hypertension: (5) PAF (paroxysmal atrial fibrillation): (6) Acute kidney injury: (7) Dyslipidemia, goal LDL below 70: Plan Patient is 59 year old male admitted with signs/symptoms of acute HFrEF. History of non ischemic cardiomyopathy and patient lost insurance and stopped all outpatient Meds. NYHA Class III+. LVEF 25 to 30%. Findings of PAF also present on admission Acute HFrEF - history of NICM with LVEF 25-30% (patient reports prior "angiogram was normal") -weight trending downward - use standing scale -Received furosemide 100 mg this morning and metolazone 2.5 mg daily -Creatinine trending upward again. 2.9 this morning. -Hold afternoon lasix. -replace electrolytes. +Potassium supplemented this morning. -Monitor I+Os -continue metoprolol succinate -Not on RADHIKA/ARB due to MELISSA/CKD Meds limited due to hypotension. -Appreciate nephrology input given CKD and medications - would benefit from low dose RADHIKA or ARB. -continue ASA and statin -Likely Transition to oral bumex 2 mg BID with potassium 20 meq daily on discharge -Zoll Life vest fitted. PAF -Patient converted to NSR yesterday. -Transitioned to oral amiodarone 200 mg BID, after 1 month, reduce to 200 mg daily -Continue Metoprolol 50 mg in AM and 25 mg in PM -LFT's improving/trending downward. Monitor. will need outpatient labs -Normal TSH on admission -Unable to use other antiarrhythmics due to MELISSA/CKD and reduced LVEF. -He has been on IV heparin due to PAF and BL LE DVT. Transitioned to oral Elqiuis 10 mg BID (high dose due to acute DVT) -Case management to assist with cost. Morbid obesity -recommend BETTY evaluation as well on discharge. Persistent leukocytosis -consider hematology consult -ongoing antibiotics for cellulitis per hospitalist -negative blood cultures Case discussed with Dr. Brandt I spent a total of 30 minutes on the date of service in preparation, delivery, and documentation of the care provided to this patient, excluding any time spent in the performance of separately billed services. Vashti Daigle PA-C Department of Cardiology, [facility] This chart was completed in part utilizing Speech Voice Recognition Software. Grammatical errors, random word insertions, pronoun errors, and incomplete sentences are an occasional consequence of this system due to software limitations, ambient noise, and hardware issues. Any formal questions or concerns about the content, text, or information contained within the body of this dictation should be directly addressed to the provider for clarification. Admission and Anticipated Discharge Date Admission Date: April 02, 2025 Supervising Physician Co-Signing Physician Notes I have personally performed a history and physical examination on the patient. I have reviewed the advance practitioner's documentation, and I agree with, and take responsibility for the plan of care. 59-year-old male admitted with acute heart failure with reduced ejection fraction and history of nonischemic cardiomyopathy. Lower extremity duplex positive for bilateral popliteal thrombosis. Echocardiogram demonstrating severe global hypokinesis with a left ventricular ejection fraction of 25 - 30% on admission. Mild mixed valvular regurgitation noted. Paroxysmal atrial fibrillation/flutter RVR with conversion to normal sinus rhythm. Volume status significantly improved with high dose furosemide (100 mg twice daily) plus metolazone. Creatinine trending upward today. Patient clinically improved. Remains in sinus rhythm. Inverted T waves with prolonged QT noted on ECG. Mild hypokalemia per a.m. labs Recommendations: * Hold IV Lasix and metolazone. * Repeat basic metabolic panel in the AM. * Transition to oral Bumex at time of discharge. * Continue to hold ramipril and Jardiance pending review of a.m. labs. * Prefer to restart ramipril prior to Jardiance. Appreciate nephrology input. * Continue oral amiodarone. * Repeat ECG in AM. Continue telemetry monitoring. * Continue Eliquis for treatment DVT and PAF. * Titration of GDMT limited by renal insufficiency. * Continue Toprol-XL 50 mg in the morning, 25 mg in the evening. * LifeVest placed Cristóbal Brandt DO, [facility] I spent a total of 40 minutes on the date of service in preparation, delivery, and documentation of the care provided to this patient, excluding any time spent in the performance of separately billed services. Subjective Patient resting in bed. Feeling well. Denies SOB with ambulation. Swelling greatly improved. Still with mild erythema of b/l legs and legs wrapped. No chest pain. Tolerating meds. He denies dizziness. Fitted with [employer]oll Life vest and wearing. Review of Systems Review of Systems: All systems reviewed & are unremarkable except as noted in HPI & below Physical Exam 2 Physical Exam: General: A&Ox3. NAD. Obese HENT: Normocephalic. Atraumatic. Eyes: PER. Conjunctiva pink, sclera clear. Neck: JVD. HJR. Heart: S1S2. Systolic murmur at the LLSB. No rub. Lungs: decreased BS at bases. No wheezing. No rales Abdomen: +BS. Somewhat firm. Nontender. No masses or organomegaly. Extremities: 1+ edema above dressings. B/L wounds wrapped. Mild erythema persists Limited neurological examination is without focal deficits. Results & Data Vital Signs (Past 12 Hours) Vital Signs Temp Pulse Pulse Resp BP Pulse Ox O2 Del Method 04/09/25 08:13 36.5 C 81 20 144/89 H 92 Room Air 04/09/25 07:39 Room Air 04/09/25 03:50 36.4 C L 78 18 140/90 91 Room Air 04/08/25 22:52 91 H 04/08/25 22:42 36.5 C 94 H 20 142/93 H 90 Room Air Laboratory Results Coagulation 04/09/25 Range/Units 04:46 PT 14.0 H (9.0-12.0) Seconds CBC 04/09/25 Range/Units 04:46 WBC 19.66 H (4.8-10.8) K/ul RBC 5.66 (4.70-6.10) M/uL Hgb 16.0 (14.0-18.0) g/dl Hct 48.8 (42.0-52.0) % Plt Count 341 (130-400) K/uL Neut # (Auto) 16.16 H (1.40-6.50) K/uL Lymph # (Auto) 1.12 L (1.20-3.40) K/uL [place] # (Auto) 1.89 H (0.11-0.59) K/uL Eos # (Auto) 0.31 (0.00-0.50) K/uL Baso # (Auto) 0.05 (0.00-0.20) K/uL Comprehensive Metabolic Panel 04/08/25 04/09/25 Range/Units 12:36 04:46 Sodium 136 134 L (136-145) mmol/L Potassium 4.1 D 3.9 (3.5-5.1) mmol/L Chloride 92 L 95 L (98-107) mmol/L Carbon Dioxide 34 H 29 (21-32) mmol/L BUN 75 H 76 H (6-23) mg/dl Creatinine 2.81 H 2.91 H (0.6-1.4) mg/dl Glucose 149 H 122 H (70-99(Fasting)) mg/dl Calcium 9.7 10.2 (8.6-10.3) mg/dl Intake and Output 04/08/25 04/09/25 04/09/25 22:59 06:59 14:59 Intake Total 1079 / 1989. Output Total Balance 1079 / 1988. Intake: Oral 1080 / 1380 300 / 1380 Output: # Bowel Movements Other: # Unmeasured Voids 1 Weight 120 kg Weight Measurement Method Standing Scale Diagnostic Findings Telemetry reviewed: NSR 70-80's. no recurrent afib. Converted late yesterday morning from afib to NSR Medications Administered Current Inpatient Medications Acetaminophen (Acetaminophen 325 Mg Tab) 650 mg PO Q4H PRN PRN Reason: Pain or Fever Stop: 05/02/25 18:23 Last Admin: 04/07/25 10:35 Dose: 650 mg Al Hydrox/Mg Hydrox/Simethicone (Aluminum/Magnesium Susp 30 Ml Udc) 15 ml PO Q4H PRN PRN Reason: Dyspepsia Stop: 05/02/25 18:23 Amiodarone HCl (Amiodarone 200 Mg Tab) 200 mg [facility] Stop: 05/08/25 16:59 Last Admin: 04/09/25 08:27 Dose: 200 mg Apixaban (Apixaban 5 Mg Tablet) 10 mg PO BID [facility] Stop: 04/13/25 21:01 Last Admin: 04/09/25 08:25 Dose: 10 mg Aspirin (Aspirin 81 Mg Ectab) 81 mg PO [facility] Stop: 05/03/25 08:59 Last Admin: 04/09/25 08:25 Dose: 81 mg Atorvastatin Calcium (Atorvastatin 40 Mg Tab) 80 mg PO [facility] Stop: 05/02/25 15:59 Last Admin: 04/09/25 08:25 Dose: 80 mg Benzonatate (Benzonatate 100 Mg Capsule) 100 mg PO TID PEDRO Stop: 05/08/25 08:59 Last Admin: 04/09/25 08:25 Dose: 100 mg Dextrose (Dextrose 50% 50 Ml Syringe) 25 - 50 ml IV UD PRN; Protocol PRN Reason: Hypoglycemia Protocol Stop: 05/02/25 18:23 Furosemide (Furosemide 40 Mg/4 Ml Vial) 100 mg IV [id number] PEDRO Stop: 05/04/25 06:59 Last Admin: 04/09/25 06:35 Dose: 100 mg Glucagon (Glucagon For Inj 1 Mg Vial) 1 mg SQ UD PRN; Protocol PRN Reason: Hypoglycemia Protocol Stop: 05/02/25 18:23 Glucose (Glucose 40% Gel 15 Gm Tube) 15 - 30 gm PO UD PRN; Protocol PRN Reason: Hypoglycemia Protocol Stop: 05/02/25 18:23 Glucose (Glucose 10 Tab/Tube) 4 - 8 tab PO UD PRN; Protocol PRN Reason: Hypoglycemia Protocol Stop: 05/02/25 18:23 Insulin Aspart (Insulin Aspart Per Unit Charge) 0 units SC ACHS PEDRO Stop: 05/02/25 20:59 Last Admin: 04/09/25 08:24 Dose: 10 units Magnesium Hydroxide (Magnesium Hydroxide Susp 30 Ml Udc) 30 ml PO Q12H PRN PRN Reason: Constipation Stop: 05/02/25 18:23 Magnesium Oxide (Magnesium Oxide 400 Mg Tab) 400 mg PO DAILY PEDRO Stop: 05/03/25 08:59 Last Admin: 04/09/25 08:25 Dose: 400 mg Metolazone (Metolazone 2.5 Mg Tablet) 2.5 mg PO QAM PEDRO Stop: 05/04/25 08:59 Last Admin: 04/09/25 08:25 Dose: 2.5 mg Metoprolol Succinate (Metoprolol Succ 25mg Ext Rel Tab) 25 mg PO QPM PEDRO Stop: 05/06/25 20:59 Last Admin: 04/08/25 20:59 Dose: 25 mg Metoprolol Succinate (Metoprolol Succ 50mg Ext Rel Tab) 50 mg PO QAM PEDRO Stop: 05/07/25 08:59 Last Admin: 04/09/25 08:27 Dose: 50 mg Miscellaneous (Carbohydrates For Hypoglycemia ) 15 - 30 gm PO UD PRN PRN Reason: Hypoglycemia Protocol Stop: 05/02/25 18:23 Ondansetron HCl (Ondansetron Inj 2 Mg/Ml 2 Ml Vial) 4 mg IV Q6H PRN PRN Reason: Nausea Stop: 05/02/25 18:23 Polyethylene Glycol (Polyethylene (Miralax) 17 Gm Pack) 17 gm PO DAILY PRN PRN Reason: Constipation Stop: 05/02/25 18:23 Potassium Chloride (Potassium Chloride Crtab 20 Meq Tabcr) 40 meq PO QAM PEDRO Stop: 05/08/25 08:59 Last Admin: 04/09/25 08:24 Dose: 40 meq PG Care Time/CCT Total # of Minutes Spent Total Time Spent with Patient: Total time spent is greater than 50% in coordination of care (as documented) at patient's floor/unit and/or counseling patient: Coding Level of Care Code 09433 SUB INP/OBS CARE 3/50MIN Diagnoses Heart failure, systolic, with acute decompensation I50.23 Nonischemic cardiomyopathy I42.8 Elevated troponin R79.89 Uncontrolled hypertension I10 PAF (paroxysmal atrial fibrillation) I48.0 Acute kidney injury N17.9 Dyslipidemia, goal LDL below 70 E78.5
[2025-04-09 11:31] LABS: Cdiff Toxin B Gene (2yr or >) Negative Cdiff Gene (Neg)
--- NOTE | 2025-04-09 11:40 | Hospitalist Progress Note ---
Date of Service April 09, 2025 Assessment & Plan (1) CHF exacerbation: Plan: Mr. Lopez is a 59 year old M with a past medical history of chronic systolic heart failure, diabetes type II, hypertension, CKD stage III, hyperlipidemia, obesity, ulcerative colitis presenting with shortness of breath, edema, cough and admitted for acute HFrEF. Patient moved from [place] and had a lapse in insurance resulting in cessation of all outpatient medications. Patient has been fitted with zoll life vest, a letter submitted for expedited MA application, and eliquis coupon applied. Working to adjust diuertics and explore leukocytosis. Patient asymptomatic and no localizing signs of infection, especially considering 1 week of abx completed. #Leukocytosis clinically improving, currently on day 6 of abx UA previously with mixed laurie blood cx NGTD 04/02 peripheral smear consult: no signs of sepsis noted Completed current abx for below noted cellulitis Reports soft stool--c diff ordered in lieu of increase WBC and recent abx Hematology consult #Acute HFrEF #history of NICM with LVEF 25-30% #Elevated troponin, demand iso heart failure exacerbation Nonadherence to meds 2/2 insurance lapse with acute exacerbation of CHF->BNP 1581 -replace electrolytes prn -Monitor I+Os -Daily weight with standing scale -Life vest fitted -continue metoprolol succinate 50qam/ 25qpm -gdmt limited 2/2 ckd and hypotension -continue ASA and statin -Lasix held for this afternoon per cardiology -Hold metolazone 2.5 mg daily #PAF -recurrent afib noted yesterday -amiodarone transitioned from IV to PO -continue eliquis, will work for pharmacy coupon for OP #Morbid obesity -recommend BETTY eval #Acute DVT Venous Doppler for r/o DVT showed occlusive thrombus within the popliteal veins bilaterally--> Heparin drip initiated transitioned to eliquis 10mg bid x 7 days , the 5mg bid #Hypertension Hypertensive, tachypneic, tachycardiac in ED Blood pressure remains elevated this morning at 166/100 monitor bp as relatively hypotensive #Suspected CAP Blood cultures have been negative and urine culture is growing 3 types of organisms Will repeat chest x-ray tomorrow- unchanged homogeneous opacities left lower zone and subsegmental atelectasis Will finish the course of antibiotic for a total of 7 days #Cellulitis completed CTX and doxy as above #MELISSA on CKD Stage III suspect multifactorial, ATN, infection cr peaked at 3.09 encourage standing weights continue IV lasix and metolazone replace electrolytes prn FR 1.5L 2g sodium diet #Transaminitis, downtrending * Elevated LFTs-> Bili 1.7, AST 110, ALT 100; suspect hepatic congestion * No abdominal symptoms * Ultrasound showed hepatomegaly and thickening of the gallbladder wall without any cholecystitis or cholelithiasis inital increased LFTs could be secondary to fatty liver disease/mild hepatic congestion from CHF--currently improving #Hyperlipidemia * Atorvastatin on high dose at home- resumed #Diabetes Type II, non-insulin dependent * A1C 6.8% * Hold home metformin and Jardiance * SSI while inpatient; Goal BSG 110-140, adjust as needed * Diabetic teaching at discharge needed DVT Ppx: eliquis Code status: Full PCP: No PCP Dispo: currently working to expedite MA Dispo pending final diuertic regimen Patient will need to fill out paperwork to establish with [facility] Patient will discharge with all meds needing refilled and information to set up his appointments contingent on MA completion (2) Cellulitis: (3) Hypertension: (4) CKD (chronic kidney disease), stage III: (5) Transaminitis: (6) Hyperlipidemia: (7) Diabetes mellitus, type II: Admission and Anticipated Discharge Date Admission Date: April 02, 2025 Subjective Reports feeling much improved today--endorsing continued improvement overall Denies fevers, chills, chest pain, or other acute concerns Physical Exam Constitutional: WD/WN, vitals as above Respiratory: diminished in bases Cardiovascular: TORRES+ RRR Skin: notable improvement in skin Results & Data Results & Data Vital Signs (Past 12 Hours) Vital Signs Temp Pulse Resp BP Pulse Ox O2 Del Method 04/09/25 08:13 36.5 C 81 20 144/89 H 92 Room Air 04/09/25 07:39 Room Air 04/09/25 03:50 36.4 C L 78 18 140/90 91 Room Air Laboratory Results Short CBC 04/09/25 Range/Units 04:46 WBC 19.66 H (4.8-10.8) K/ul Hgb 16.0 (14.0-18.0) g/dl Hct 48.8 (42.0-52.0) % Plt Count 341 (130-400) K/uL BMP 04/08/25 04/09/25 12:36 04:46 Sodium 136 134 L Potassium 4.1 D 3.9 Chloride 92 L 95 L Carbon Dioxide 34 H 29 BUN 75 H 76 H Creatinine 2.81 H 2.91 H Glucose 149 H 122 H Calcium 9.7 10.2 Urine 04/09/25 Range/Units 08:52 Urine Color Yellow Urine Appearance Clear (Clear) Urine pH 7.5 (4.5-7.5) Ur Specific [place] 1.008 (1.000-1.030) Urine Protein Negative (Negative) Urine Glucose (UA) Negative (Negative) Medications Administered Home Medications Medication Instructions Recorded Confirmed Last Taken aspirin 81 mg tablet 81 mg PO DAILY 04/02/25 04/02/25 Unknown atorvastatin 80 mg tablet 80 mg PO HS 04/02/25 04/02/25 Unknown bumetanide 0.5 mg tablet 0.5 mg PO DAILY 04/02/25 04/02/25 Unknown empagliflozin 10 mg tablet 10 mg PO DAILY 04/02/25 04/02/25 Unknown (Jardiance) eplerenone 50 mg tablet 50 mg PO DAILY 04/02/25 04/02/25 Unknown magnesium oxide 400 mg (241.3 mg 400 mg PO DAILY 04/02/25 04/02/25 Unknown magnesium) tablet metformin 500 mg tablet 500 mg PO DAILY 04/02/25 04/02/25 Unknown metoprolol succinate 25 mg 25 mg PO DAILY 04/02/25 04/02/25 Unknown tablet,extended release 24 hr ramipril 5 mg tablet 5 mg PO DAILY 04/02/25 04/02/25 Unknown apixaban 5 mg (74 tabs) tablets in 5 mg PO BID #74 ea 04/07/25 Unknown a dose pack (Eliquis) Active Medications Generic Name Dose Route Start Last Admin Trade Name Freq PRN Reason Stop Dose Admin Acetaminophen 650 mg 04/02/25 18:24 04/07/25 10:35 Acetaminophen 325 Mg Tab PO 05/02/25 18:23 650 mg Q4H PRN Administration Pain or Fever Amiodarone HCl 200 mg 04/08/25 17:00 04/09/25 08:27 Amiodarone 200 Mg Tab PO 05/08/25 16:59 200 mg BIDM PEDRO Administration Apixaban 10 mg 04/07/25 13:25 04/09/25 08:25 Apixaban 5 Mg Tablet PO 04/13/25 21:01 10 mg BID PEDRO Administration Aspirin 81 mg 04/03/25 09:00 04/09/25 08:25 Aspirin 81 Mg Ectab PO 05/03/25 08:59 81 mg QAM PEDRO Administration Atorvastatin Calcium 80 mg 04/02/25 16:00 04/09/25 08:25 Atorvastatin 40 Mg Tab PO 05/02/25 15:59 80 mg QAM PEDRO Administration Benzonatate 100 mg 04/08/25 09:00 04/09/25 08:25 Benzonatate 100 Mg Capsule PO 05/08/25 08:59 100 mg TID PEDRO Administration Furosemide 100 mg 04/04/25 07:00 04/09/25 06:35 Furosemide 40 Mg/4 Ml Vial IV 05/04/25 06:59 100 mg [id number] PEDRO Administration Insulin Aspart 0 units 04/02/25 21:00 04/09/25 08:24 Insulin Aspart Per Unit Charge SC 05/02/25 20:59 10 units ACHS PEDRO Administration Magnesium Oxide 400 mg 04/03/25 09:00 04/09/25 08:25 Magnesium Oxide 400 Mg Tab PO 05/03/25 08:59 400 mg DAILY PEDRO Administration Metolazone 2.5 mg 04/04/25 09:00 04/09/25 08:25 Metolazone 2.5 Mg Tablet PO 05/04/25 08:59 2.5 mg QAM PEDRO Administration Metoprolol Succinate 25 mg 04/06/25 21:00 04/08/25 20:59 Metoprolol Succ 25mg Ext Rel Tab PO 05/06/25 20:59 25 mg QPM PEDRO Administration Metoprolol Succinate 50 mg 04/07/25 09:00 04/09/25 08:27 Metoprolol Succ 50mg Ext Rel Tab PO 05/07/25 08:59 50 mg QAM PEDRO Administration Potassium Chloride 40 meq 04/08/25 09:00 04/09/25 08:24 Potassium Chloride Crtab 20 Meq Tabcr PO 05/08/25 08:59 40 meq QAM PEDRO Administration
--- NOTE | 2025-04-09 13:01 | Electrocardiogram Report ---
Test Reason : Blood Pressure : */* mmHG Vent. Rate : 82 BPM Atrial Rate : 82 BPM P-R Int : 158 ms QRS Dur : 94 ms QT Int : 430 ms P-R-T Axes : 29 70 138 degrees QTcB Int : 502 ms Normal sinus rhythm with sinus arrhythmia T wave abnormality, consider lateral ischemia Prolonged QT Abnormal ECG When compared with ECG of 08-Apr-2025 09:23, Sinus rhythm has replaced Atrial fibrillation T wave inversion more evident in Lateral leads Confirmed by Misael Kelley ([id number]) on 04/09/2025 12:59:46 PM Referred By: REFERRED SELF Confirmed By: Misael Kelley
--- NOTE | 2025-04-09 13:03 | Electrocardiogram Report ---
Test Reason : Blood Pressure : */* mmHG Vent. Rate : 81 BPM Atrial Rate : 81 BPM P-R Int : 160 ms QRS Dur : 96 ms QT Int : 456 ms P-R-T Axes : 42 84 178 degrees QTcB Int : 529 ms Sinus rhythm with Premature atrial complexes Prolonged QT Abnormal ECG When compared with ECG of 08-Apr-2025 16:07, (unconfirmed) Premature atrial complexes are now Present Inverted T waves have replaced nonspecific T wave abnormality in Inferior leads Inverted T waves have replaced nonspecific T wave abnormality in Anterior leads Confirmed by Misael Kelley ([id number]) on 04/09/2025 1:03:00 PM Referred By: REFERRED SELF Confirmed By: Misael Kelley
--- NOTE | 2025-04-10 06:11 | Oncology Consultation ---
Date of Consultation April 10, 2025 Assessment & Plan (1) Leukocytosis (leucocytosis): Plan Patient has predominantly neutrophilic leukocytosis with no cytopenias, Peripheral smear review unremarkable. This is typically seen in setting of infection, inflammation/reactive state, steroid use. Less likely hematologic malignancy. However, will obtain laboratory testing including BCR/FISH, MPN mutation analysis to rule out myeloproliferative neoplasm. Patient can follow- up with hematology outpatient. History of Present Illness Reason for Consultation: Leukocytosis Attending Physician: Camelia Littlejohn MD History of Present Illness 59-year-old gentleman with multiple comorbidities admitted for decompensated CHF. Hematology consulted for persistent leukocytosis with WBC ranging between 16,000 -19,000.. Peripheral smear review by pathology unremarkable Allergies Allergy/AdvReac Type Severity Reaction Status Date / Time No Known Allergies Allergy Unverified 04/02/25 19:58 Home Medications Medication Instructions Recorded Confirmed Type aspirin 81 mg tablet 81 mg PO DAILY 04/02/25 04/02/25 History atorvastatin 80 mg tablet 80 mg PO HS 04/02/25 04/02/25 History bumetanide 0.5 mg tablet 0.5 mg PO DAILY 04/02/25 04/02/25 History empagliflozin 10 mg tablet 10 mg PO DAILY 04/02/25 04/02/25 History (Jardiance) eplerenone 50 mg tablet 50 mg PO DAILY 04/02/25 04/02/25 History magnesium oxide 400 mg (241.3 mg 400 mg PO DAILY 04/02/25 04/02/25 History magnesium) tablet metformin 500 mg tablet 500 mg PO DAILY 04/02/25 04/02/25 History metoprolol succinate 25 mg 25 mg PO DAILY 04/02/25 04/02/25 History tablet,extended release 24 hr ramipril 5 mg tablet 5 mg PO DAILY 04/02/25 04/02/25 History apixaban 5 mg (74 tabs) tablets in 5 mg PO BID #74 ea 04/07/25 Rx a dose pack (Eliquis) Patient History Medical History Systolic CHF Ulcerative colitis Obesity Social History Smoking Status: Never smoker Second Hand Exposure: No; Do You Dip or Chew Tobacco: No; Hx Alcohol Use: Yes Alcohol type: beer Hx Substance Use: No Preferred Language: Mohawk Communication Ability: Effective 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
[2025-04-10 06:28] LABS: Hematocrit (blood only) 46.4 % (42.0-52.0); Hemoglobin 15.7 g/dl (14.0-18.0); Mean Corpuscular Hemoglobin 28.6 pg (25.0-34.0); Mean Corpuscular Volume 84.5 fL (80.0-100.0); Platelet Count 354 K/uL (130-400); RDW Standard Deviation 48.6 fL (36.4-46.3); Red Blood Count 5.49 M/uL (4.70-6.10); White Blood Count 19.67 K/ul (4.8-10.8)
[2025-04-10 07:20] LABS: Alanine Aminotransferase 86.0 U/L (7-52); Albumin Globulin Ratio 0.8 (0.9-2); Alkaline Phosphatase 71.0 U/L (34-104); Anion Gap 11.0 (3-11); Bilirubin,Total 1.3 mg/dl (0.2-1.0); Blood Urea Nitrogen 81.0 mg/dl (6-23); Calcium 9.8 mg/dl (8.6-10.3); Carbon Dioxide 30.0 mmol/L (21-32); Chloride 95.0 mmol/L (98-107); Creatinine Clr Calc Pharmacy 40.0 ml/min; Globulin 4.0 gm/dl (2.5-4.0); Glucose 118.0 mg/dl (70-99(Fasting)); Magnesium 2.2 mg/dl (1.7-2.4); Potassium 3.6 mmol/L (3.5-5.1); Sodium 136.0 mmol/L (136-145); Total Protein 7.3 gm/dl (6.0-8.3)
[2025-04-10 07:27] LABS: INR 1.4 (0.9-1.1); Prothrombin Time 14.8 Seconds (9.0-12.0)
--- NOTE | 2025-04-10 13:02 | Electrocardiogram Report ---
Test Reason : Blood Pressure : */* mmHG Vent. Rate : 77 BPM Atrial Rate : 77 BPM P-R Int : 162 ms QRS Dur : 94 ms QT Int : 450 ms P-R-T Axes : 34 24 170 degrees QTcB Int : 509 ms Sinus rhythm with Premature atrial complexes T wave abnormality, consider lateral ischemia Prolonged QT Abnormal ECG When compared with ECG of 09-Apr-2025 09:01, Questionable change in QRS axis Confirmed by Ervin Ruff ([id number]) on 04/10/2025 1:02:15 PM Referred By: REFERRED SELF Confirmed By: Ervin Ruff
--- NOTE | 2025-04-10 13:25 | Cardiology Progress Note ---
Date of Service April 10, 2025 Assessment & Plan (1) Heart failure, systolic, with acute decompensation: (2) Nonischemic cardiomyopathy: (3) Elevated troponin: (4) Uncontrolled hypertension: (5) PAF (paroxysmal atrial fibrillation): (6) Acute kidney injury: (7) Dyslipidemia, goal LDL below 70: Plan Patient is 59 year old male admitted with signs/symptoms of acute HFrEF. History of non ischemic cardiomyopathy and patient lost insurance and stopped all outpatient Meds. NYHA Class III+. LVEF 25 to 30%. Findings of PAF also present on admission 04/10/2025: -patient is stable from a cardiac perspective. Reports improvement in his symptoms with no acute concerns. -Hx of NICM with LVEF 25-40%. Patient reports that prior cardiac cath "was normal" -Furosemide and metolazone are on hold; however, renal function is now trending down. -Would recommend transition to PO Bumex tomorrow 2mg PO BID with repeat BMP on Saturday outpatient. Continue to hold of on metolazone at this time. -Strict daily weights, patient will need a scale when he goes home (our cardiology office can provide him with one if needed--simple scale). Stressed importance of daily weights with reporting a 3-5lb weight gain over night. -Electrolytes are stable. -Adhere to a low sodium (less than 2000mg diet) and goal of 60-80oz fluid daily. -Remains in SR over night per telemetry. -Recommend BETTY evaluation OP -Patient has recently moved to the area and will need to establish care with both cardiology and nephrology OP. Our office will contact him Saturday to schedule an appt. patient would prefer at [facility] clinic due to locality purposes. -Continue Atorvastatin 80mg PO Daily, ASA 81mg daily, Metoprolol succinate 75mg PO DAily, Klor-con 20meq PO daily (reduce from 40mg), and Amidoarone 200mg PO BID. Continue Eliquis 10mg PO BID (High dose for 7 days and then reduce to 5mg PO BID ongoing) -will work to optimize HF medication regimen outpatient as tolerated with hypotension. -Patient will need close cardiology follow up in the next 2-4 weeks (new [place] office will contact him). patient will need to have non-fasting labs (CBC and BMP Saturday04/16/25) -LifeVest has been fitted and patient is wearing. -Persistent leukocytosis as per management of primary team, consider hematology referral. Case has been discussed with Dr. Crump. Further recommendations regarding plan of care as per her assessment. I spent a total of 40 minutes on the date of service in preparation, delivery, documentation of the care provided to the patient excluding any time spent in the performance of separately billed services. MAXIMILIAN Rudd [facility] Cardiology [facility] Admission and Anticipated Discharge Date Admission Date: April 02, 2025 Supervising Physician Co-Signing Physician Notes I have personally performed a history and physical examination on the patient. I have reviewed the advance practitioner's documentation, and I agree with, and take responsibility for the plan of care. 59-year-old male admitted with acute heart failure with reduced ejection fraction and history of nonischemic cardiomyopathy. Lower extremity duplex positive for bilateral popliteal thrombosis. Echocardiogram demonstrating severe global hypokinesis with a left ventricular ejection fraction of 25 - 30% on admission. Mild mixed valvular regurgitation noted. Has been doing better, wants to go home stable from cardiac standpoint bumex 2 mg twice daily low slat diet daily weigh t fluid restriction of 1.8 liters follow up with out pt cardiology I spent a total of 20 minutes on the date of service in preparation, delivery, and documentation of the care provided to this patient, excluding any time spent in the performance of separately billed services. Subjective 04/10/2025: Patient seen and examined in follow up today. Feeling well from a cardiac perspective. Offers no acute complaints. patient would really like to go home today. Labs, vitals, diagnostics, telemetry and documentation reviewed. Telemetry reviewed showing SR with PACs. No acute events overnight. furosemide and Metolazone remain on hold. Cr has trended back to baseline. Review of Systems Review of Systems: All systems reviewed & are unremarkable except as noted in HPI & below Physical Exam Constitutional: + overweight; no acute distress and not ill appearing Neck: normal visual inspection and trachea midline Respiratory: normal respiratory effort; no respiratory distress Auscultation: lungs clear to auscultation bilaterally Cardiovascular: Rate/Rhythm: regular rate and regular rhythm Heart Sounds: normal S1 and normal S2; no murmur Vessels: dorsalis pedis pulses present; no JVD Skin: normal turgor and + wound (bilateral lower extremity wraps ) Psychiatric: A+Ox3, euthymic affect Results & Data Vital Signs (Past 12 Hours) Vital Signs Temp Pulse Resp BP Pulse Ox O2 Del Method 04/10/25 10:57 36.2 C L 79 18 129/86 95 Room Air 04/10/25 07:49 36.4 C L 76 17 121/82 93 Room Air 04/10/25 02:55 36.5 C 77 20 124/88 94 Room Air Laboratory Results Cardiac Enzymes 04/10/25 Range/Units 06:03 AST 26 (13-39) U/L Coagulation 04/10/25 Range/Units 06:03 PT 14.8 H (9.0-12.0) Seconds CBC 04/10/25 Range/Units 06:03 WBC 19.67 H (4.8-10.8) K/ul RBC 5.49 (4.70-6.10) M/uL Hgb 15.7 (14.0-18.0) g/dl Hct 46.4 (42.0-52.0) % Plt Count 354 (130-400) K/uL Comprehensive Metabolic Panel 04/10/25 Range/Units 06:03 Sodium 136 (136-145) mmol/L Potassium 3.6 (3.5-5.1) mmol/L Chloride 95 L (98-107) mmol/L Carbon Dioxide 30 (21-32) mmol/L BUN 81 H (6-23) mg/dl Creatinine 2.59 H D (0.6-1.4) mg/dl Glucose 118 H (70-99(Fasting)) mg/dl Calcium 9.8 (8.6-10.3) mg/dl AST 26 (13-39) U/L ALT 86 H (7-52) U/L Alkaline Phosphatase 71 (34-104) U/L Total Protein 7.3 (6.0-8.3) gm/dl Albumin 3.3 L (3.4-5.0) gm/dl Intake and Output 04/09/25 04/10/25 04/10/25 22:59 06:59 14:59 Intake Total 300 / 1020 Balance 300 / 1020 Intake: Oral 300 / 1020 Other: # Unmeasured Voids 2 Weight 117.7 kg 117.7 kg Weight Measurement Method Standing Scale Patient Weight 04/11/25 06:59 Weight 117.7 kg PG Care Time/CCT Total # of Minutes Spent Total Time Spent with Patient: Total time spent is greater than 50% in coordination of care (as documented) at patient's floor/unit and/or counseling patient: Coding [place] [address] SUB INP/OBS CARE 3/50MIN Patient Type Established Diagnoses Heart failure, systolic, with acute decompensation I50.23 Nonischemic cardiomyopathy I42.8 Elevated troponin R79.89 Uncontrolled hypertension I10 PAF (paroxysmal atrial fibrillation) I48.0 Acute kidney injury N17.9 Dyslipidemia, goal LDL below 70 E78.5 Time Spent (min) 60
--- NOTE | 2025-04-10 14:47 | Discharge Summary ---
Date of Service April 10, 2025 Admission HPI Per Admitting Provider Patient is a 59 year old M with a past medical history of chronic systolic heart failure, diabetes type II, hypertension, CKD stage III, hyperlipidemia, obesity, ulcerative colitis presenting with shortness of breath, edema, cough. Symptoms began about a week ago with nonproductive cough and lower leg edema, progressed to shortness of breath about 3 days ago with exertion. Patient relocated from [place] about 6 months ago and was taking all his medications until about 30 days ago when he had no refills remaining. Since then he's been trying to establish insurance and outpatient providers. Reportedly, he was diagnosed with heart failure about 15 months ago when hospitalized in [place] with similar presentation. He experienced weight gain, swelling to the legs and shortness of breath at that time, then lost ~50 pounds following diuretics while inpatient. Previous medications included metoprolol, bumetanide, eplerenone, atorvastatin, ACEi and aspirin. Denies fever, chills, weight loss, weakness, headache, cognitive changes, vision/hearing changes, chest pain, difficulty breathing, urinary concerns, N/V/D, joint swelling/pain, ambulation difficulty,lesions, bleeding, bruising. In the emergency department, patient was hypertensive to 150's/100's with evidence of fluid overload. BNP elevated 1581. Trop 155 and increased to 162 on repeat. Initially tachypneic, tachycardic and short of breath. Lasix, Met oprolol, Nitro were given. Patient responded well to this regimen and respiratory rate slowed to the 20's and heart rate trended down to the 90's following. No hypoxia noted. Chest Xray showed cardiomegaly with mild pulmonary vascular congestion; bibasilar airspace consolidation with nodular configuration to right lung, and suspected small pleural effusions. Chest CT wo contrast ordered for r/o pe ricardial effusion. Results pending. EKG was initially questionable for Afib, repeat EKG then showed NSR with vent rate 97 bpm, QTc 492. Doppler BLE was obtained for BLE edema with suspected cellulitis. No anticoagulation at home. Doppler showing occlusive thrombus within the popliteal veins bilaterally. Heparin drip initiated. Also found to have an elevated WBC 17.7K with a mildly elevated Procal 0.52, and Lactate 3.1. Blood cultures collected. No evidence of sepsis. Rocephin and Doxy were given. MRSA swab collected. History obtained primarily from the patient and via medical records that he brought from PCP from [place]. Admission Exam Per Admitting Provider VITALS: Reviewed. WEIGHT/BMI reviewed. GEN: Obese, well-developed, NAD. PSYCH: Good Judgment. AOx3. Normal memory, mood, and affect. HEENT -Head: NC/AT; -Eyes: PERRL, EOMI. No discharge or redness; -Ears: External ears are normal. -Nose: Normal nares. -Mouth and throat: Dry mucous membranes. Normal gums, mucosa, palate,. Good dentition. NECK: Supple, with no masses. CV: RRR, no m/r/g. Pitting edema BLE, Good perfusion. LUNGS: Mildly diminished to bases, CTAB, no w/r/c. ABD: Soft, NT/ND, NBS, no masses or organomegaly. : N/A SKIN: Warm, well perfused. Open, draining ulcers to B/L shins, +erythema, + swelling, no pressure injury to B/L heels MSK: No deformities, Normal gait. EXT: No clubbing, cyanosis, or edema. NEURO: Ambulating with no limitations. Normal muscle strength and tone. No focal deficits. Principal Diagnosis Heart failure, systolic, with acute decompensation Nonischemic cardiomyopathy PAF (paroxysmal atrial fibrillation) Acute kidney injury Cellulitis Discharge Exam Constitutional: WD/WN, vitals as above Respiratory: diminished in bases Cardiovascular: TORRES+ RRR Skin: notable improvement in skin Neuro: awake, alert, answers appropriately, moves extremities Abdomen: soft, nontender Discharge Data Allergies Allergy/AdvReac Type Severity Reaction Status Date / Time No Known Allergies Allergy Unverified 04/02/25 19:58 Consultations 04/02/25 14:58 ED Decision to Admit Stat 04/02/25 18:24 Consult Cardiology Routine 04/02/25 18:54 Consult Nephrology Routine 04/09/25 07:19 Consult Hematology Routine Ordered Studies 04/02/25 15:35 CT chest diagnostic wo con Stat FINDINGS: LOWER NECK: Normal thyroid. LYMPH NODES: Mildly enlarged mediastinal and hilar lymph nodes CARDIOVASCULAR: Cardiac size is markedly enlarged. Coronary artery and valvula calcifications are noted. No aortic aneurysm. There is a small pericardial fluid. LUNGS: The trachea and central bronchi are widely patent. No focal confluent infiltrates are seen. There are no pulmonary nodules. PLEURA: There are no pleural effusions. There is no pneumothorax. UPPER ABDOMEN: Hepatic steatosis and hepatomegaly. Renal cysts OSSEOUS STRUCTURES: No acute findings IMPRESSION: Mildly enlarged heart with small pericardial fluid. Small left greater than right pleural fluids. Bibasilar atelectasis and patchy pneumonia 04/02/25 15:40 US liver Routine Impression: 1. Mild gallbladder wall thickening without definite cholelithiasis. The wall thickening could be due to hepatitis or hypoalbuminemia 2. Hepatomegaly 3. Right renal calculi and right renal cysts US venous doppler LE BI Urgent Findings: There is apparent occlusive thrombus within the popliteal veins bilaterally The bilateral common femoral, superficial femoral and visualized calf veins demonstrate normal anechoic lumens with full compressibility. Impression: DVT in the popliteal veins bilaterally 04/06/25 09:33 US effusion-chest/mediastinum Routine FINDINGS: Small left pleural effusion is noted, volume of approximately 200 mL. Trace right pleural effusion. IMPRESSION: Left pleural effusion with volume of approximately 200 mL. Hospital Course (1) CHF exacerbation: Mr. Lopez is a 59 year old M with a past medical history of chronic systolic heart failure, diabetes type II, hypertension, CKD stage III, hyperlipidemia, obesity, ulcerative colitis presenting with shortness of breath, edema, cough and admitted for acute HFrEF. Patient moved from [place] and had a lapse in insurance resulting in cessation of all outpatient medications. Patient has been fitted with zoll life vest, a letter submitted for expedited [place] application, and eliquis coupon applied. Working to adjust diuertics and explore leukocytosis. Patient asymptomatic and no localizing signs of infection, especially considering 1 week of abx completed. #Leukocytosis clinically improving, finished 6-7 days of abx UA previously with mixed laurei blood cx NGTD 04/02 peripheral smear consult: no signs of sepsis noted Completed current abx for below noted cellulitis Reported soft stool--c diff ordered in lieu of increase WBC and recent abx - discussed w/ pt-had firm stool yesterday - not c/w c. diff Hematology consulted - Patient has predominantly neutrophilic leukocytosis with no cytopenias, Peripheral smear review unremarkable. This is typically seen in setting of infection, inflammation/reactive state, steroid use. Less likely hematologic malignancy. However, will obtain laboratory testing including BCR/FISH, MPN mutation analysis to rule out myeloproliferative neoplasm. Patient can follow-up with hematology outpatient. #Acute HFrEF #history of NICM with LVEF 25-30% #Elevated troponin, demand iso heart failure exacerbation Nonadherence to meds 2/2 insurance lapse with acute exacerbation of CHF->BNP 1581 -replace electrolytes prn -Monitor I+Os -Daily weight with standing scale -Life vest fitted -continue metoprolol succinate 50qam/ 25qpm -gdmt limited 2/2 ckd and hypotension -continue ASA and statin -Lasix stopped -metolazone stopped -DC on bumex 2 mg bid #PAF -amiodarone transitioned from IV to PO - continue 200 bid -continue eliquis #Morbid obesity -recommend BETTY eval #Acute DVT Venous Doppler for r/o DVT showed occlusive thrombus within the popliteal veins bilaterally--> Heparin drip initiated transitioned to eliquis 10mg bid x 7 days , the 5mg bid #Hypertension Hypertensive, tachypneic, tachycardiac in ED Blood pressure now much improved, currently 129/86 #Suspected CAP Blood cultures have been negative and urine culture is growing 3 types of organisms repeat chest x-ray - unchanged homogeneous opacities left lower zone and subsegmental atelectasis finished the course of antibiotic for a total of 7 days #Cellulitis completed CTX and doxy as above #MELISSA on CKD Stage III suspect multifactorial, ATN, infection cr peaked at 3.09 encourage standing weights replace electrolytes prn FR 1.5L 2g sodium diet Pt to be discharged on bumex 2 BID - and pt will need to follow up w/ nephrology, also will need outpt labs as per nephrology #Transaminitis, downtrending * Elevated LFTs-> Bili 1.7, AST 110, ALT 100; suspect hepatic congestion * No abdominal symptoms * Ultrasound showed hepatomegaly and thickening of the gallbladder wall without any cholecystitis or cholelithiasis inital increased LFTs could be secondary to fatty liver disease/mild hepatic congestion from CHF--currently improving #Hyperlipidemia * Atorvastatin on high dose at home- resumed #Diabetes Type II, non-insulin dependent * A1C 6.8% * Hold home metformin and Jardiance * SSI while inpatient; Goal BSG 110-140, adjust as needed * Diabetic teaching at discharge needed * -resumed metformin on DC (2) Cellulitis: (3) Hypertension: (4) CKD (chronic kidney disease), stage III: (5) Transaminitis: (6) Hyperlipidemia: (7) Diabetes mellitus, type II: Total Time Total Time Spent Total Time Spent (In Minutes): 40 Discharge Plan Discharge Items Patient Disposition: Home - Self-Care Reason For Visit: CHF EXACERBATION Discharge Diagnosis: Heart failure, systolic, with acute decompensation Nonischemic cardiomyopathy PAF (paroxysmal atrial fibrillation) Acute kidney injury Cellulitis Condition on Discharge: Serious Activity: Per Instructions section Non-emergency contact: Primary Care Provider, Specialist and Retreader Call non-emergency contact if: you have any medication questions and your symptoms worsen Follow-up/Referrals: PCP,NO [Primary Care Provider] - Diet: Carb Consistent or DM2, Heart Healthy and Low Sodium (2gm) Fluids: 1500ml (6 cups) Addtl Attending Provider Instructions: Follow up with your primary care physician, nephrology and cardiology. Take your medications as prescribed. Continue taking aspirin, Eliquis, atorvastatin, amiodarone. Also take bumex, and potassium supplement. You will need blood work (BMP) on Saturday04/16/2025. You will need to follow up with cardiology - and you will be contacted about the appointment on Saturday. 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 * Use the same scale. * Wear the same amount of clothing. * Write your weight down on a chart. * Call your Primary Care doctor if you gain more than 2-3 pounds in 1-2 days. MEDICATIONS * Use this discharge instruction sheet for medication instructions. * Take your medications at the time your doctor ordered. * Do not skip a dose of your medicines. * If you miss a dose of medicine, take it as soon as possible, but DO NOT DOUBLE A DOSE. * Read your medicine information when you get home. * Know all of the side effects of your medicine. If in doubt, ask your pharmacist * Call your Primary Care doctor's office if you have any side effects. * Be sure all of your doctors know what medicine and herbs you take (including cold, flu, and herbal medicine). Take the following with you to your follow-up doctor appointments: * Weight Chart * Medication List * List of questions Do not drink excessive alcohol, beer or wine. Pending Studies at Discharge: No Stand-Alone Forms: [facility], Smoking Cessation Medications and DC Order Prescriptions: New Eliquis 5 mg (74 tabs) tablets,dose pack 5 mg PO BID Qty: 74 0RF Rx Instructions: 10mg (2 tablets) two times a day for seven days, then 5mg (1 tablet) two times a day there on out aspirin 81 mg Tablet,Delayed Release (Dr/Ec) 81 mg PO QAM Qty: 30 0RF atorvastatin 80 mg tablet 80 mg PO HS Qty: 30 0RF metoprolol succinate 50 mg Tablet Extended Release 24 Hr 50 mg PO QAM Qty: 30 0RF metoprolol succinate 25 mg Tablet Extended Release 24 Hr 25 mg PO QPM Qty: 30 0RF amiodarone 200 mg Tablet 200 mg PO BIDM Qty: 60 0RF bumetanide 2 mg tablet 2 mg PO BID Qty: 30 0RF potassium chloride [Klor-Con] 20 mEq packet 20 meq PO DAILY Qty: 30 0RF Continued atorvastatin 80 mg Tablet 80 mg PO HS magnesium oxide 400 mg (241.3 mg magnesium) Tablet 400 mg PO DAILY aspirin 81 mg Tablet 81 mg PO DAILY metformin 500 mg Tablet 500 mg PO DAILY Qty: 30 0RF Held eplerenone 50 mg Tablet 50 mg PO DAILY Hold Instructions: Resume on 04/16/25. discuss w/ pcp/ see supervisor if/when to resume ramipril 5 mg Tablet 5 mg PO DAILY Hold Instructions: Resume on 04/16/25. discuss w/ pcp/ see supervisor if/when to resume Jardiance 10 mg Tablet 10 mg PO DAILY Hold Instructions: Resume on 04/16/25. discuss w/pcp/ see supervisor if/when to resume Discontinued bumetanide 0.5 mg Tablet 0.5 mg PO DAILY metoprolol succinate 25 mg Tablet Extended Release 24 Hr 25 mg PO DAILY Discharge Orders: Discharge Order- CHF (Routine); Ordered 04/10/25 Ordered By: Larry Frankel/Other Patient Handouts: Managing Type 2 Diabetes Admission Data Admit Date/Time: 04/02/25 15:49 Attending Provider: Larry Vaughan Admit Provider: Colt Mix Primary Care Provider: PCP,SHERRY Other Providers: Colt Mix; Nakul Espinal; Licha Upton; Alan Coy; Casandra Almeida; Lorena Sanches; Kisha Kothari; Marielle Contreras; Camelia Littlejohn L
[2025-04-10 15:49] VITALS: BP 137/90; PULSE 81; RESP 20; TEMP 97.9; O2SAT 93
--- NOTE | 2025-04-12 12:06 | Coding Query ---
To promote full compliance with coding requirements relating to patient care, provider participation is requested in all cases of nurse practitioner per diem uncertainty. Please assist us with the question(s) below: Coding Question(s): The diagnosis(es) below was documented in the (H&P, progress note 04/07) then subsequently fell off all further documentation. Please indicate if it is still a possible diagnosis or ruled out. Physician's Response(s): as per Dr. Cartwright's addendum on 04/07/2025 #probable Sepsis due to CAP, RLE cellulitis, POA Leukocytosis, tachycardia, elevated LFT's, serial lactic acids of > 3, MELISSA, likely ATN, hyperglycemia : IV Rocephin and Doxycycline, SEPSIS ( x) Probable sepsis, diagnosed and POA ( ) Diagnosed and not POA ( ) Ruled out ( ) Other (please specify) MTDD
== END 2025-04-10 18:04 | disposition home or self-care (01) | DRG 871 ==
LOC: ED 12:42 → SUATTDRO 15:49 → 2E 15:49